=== PATIENT | male | born 1970 | race American Indian/Alaskan Native ===

== ENCOUNTER 2019-05-20 23:43 | Inpatient (IN) | payer OTHER, SELFPAY ==
[2019-05-21] MEDS ORDERED: cefTRIAXone/NS 2 GM/100 ML 2 GM/100 ML BAG IV ONE (00:56)
[2019-05-21] MEDS ORDERED: HYDROXYCHLOROQUINE 200 MG TAB PO ONE (00:56)
--- NOTE | 2019-05-21 01:00 | XRay Report ---
CHEST 1 VIEW INDICATION / CLINICAL INFORMATION: ESTEBAN. COMPARISON: None available. FINDINGS: SUPPORT DEVICES: None. HEART / MEDIASTINUM: No significant abnormality. LUNGS / PLEURA: Patchy round breast parenchyma opacities are demonstrated in both lower lobes No pneu mothorax. ADDITIONAL FINDINGS: Degenerative changes are seen in both shoulders. IMPRESSION: 1. Bilateral airspace opacities. Signer Name: Miko Israel MD Signed: 05/21/2019 12:56 AM Workstation Name: [id number]
--- NOTE | 2019-05-21 01:00 | Emergency Department Report ---
ED Shortness of Breath HPI - General Chief Complaint: Dyspnea/Respdistress Stated Complaint: CERON EXPOSURE/ESTEBAN/BODY ACHES Time Seen by Provider: 05/21/19 00:51 Source: patient, family Mode of arrival: Ambulatory Limitations: No Limitations - History of Present Illness Initial Comments: Patient is a 48-year-old male that presents emergency room with complaints of cough, shortness of breath, fever. Patient that the symptoms started 3 days ago. Patient states he has a sick contact with the novel coronavirus. Patient states his is tested positive. Patient states his is actually improving. Patient states that shortness of breath and cough are worse with exertion and better with rest. Patient denies chest pain. Patient complains of fatigue. Patient planes of vomiting and nausea. Patient complains of diarrhea. Patient states he has been on quarantine at home. MD Complaint: shortness of breath, cough -: Sudden Severity: severe Consistency: constant Improves With: rest Worsens With: exertion Context: recent URI, other Associated Symptoms: cough Treatments Prior to Arrival: none - Related Data Home Oxygen Therapy: No Allergies Allergy/AdvReac Type Severity Reaction Status Date / Time No Known Allergies Allergy Unverified 05/21/19 00:14 ED Review of Systems ROS: Stated complaint: CERON EXPOSURE/ESTEBAN/BODY ACHES Other details as noted in HPI Constitutional: chills, fever, malaise Eyes: denies: eye pain, eye discharge, vision change ENT: denies: ear pain, throat pain Respiratory: cough, shortness of breath, SOB with exertion, SOB at rest. denies: wheezing Cardiovascular: denies: chest pain, palpitations Endocrine: no symptoms reported Gastrointestinal: denies: abdominal pain, nausea, diarrhea Genitourinary: denies: urgency, dysuria Musculoskeletal: denies: back pain, joint swelling, arthralgia Skin: denies: rash, lesions Neurological: denies: headache, weakness, paresthesias Psychiatric: denies: anxiety, depression Hematological/Lymphatic: denies: easy bleeding, easy bruising ED Past Medical Hx - Past Medical History Previous Medical History?: No - Surgical History Past Surgical History?: No - Family History Family history: no significant - Social History Smoking Status: Never Smoker Substance Use Type: None ED Physical Exam - General Limitations: No Limitations General appearance: alert, in distress - Head Head exam: Present: atraumatic, normocephalic - Eye Eye exam: Present: normal appearance - ENT ENT exam: Present: mucous membranes dry - Neck Neck exam: Present: normal inspection - Respiratory Respiratory exam: Present: respiratory distress, decreased breath sounds. Absent: wheezes, rales - Cardiovascular Cardiovascular Exam: Present: regular rate, normal rhythm. Absent: systolic murmur, diastolic murmur, rubs, gallop - GI/Abdominal GI/Abdominal exam: Present: soft, normal bowel sounds. Absent: distended, tenderness, guarding - Rectal Rectal exam: Present: deferred - Extremities Exam Extremities exam: Present: normal inspection - Back Exam Back exam: Present: normal inspection - Neurological Exam Neurological exam: Present: alert, oriented X3 - Psychiatric Psychiatric exam: Present: normal affect, normal mood - Skin Skin exam: Present: warm, dry, intact, normal color. Absent: rash ED Course Vital Signs 05/21/19 05/21/19 05/21/19 00:04 00:26 00:30 Temperature 102.7 F H Pulse Rate 103 H 94 H 94 H Respiratory 20 12 29 H Rate Blood Pressure 110/64 113/68 O2 Sat by Pulse 86 88 Oximetry 05/21/19 05/21/19 05/21/19 00:37 00:46 01:00 Temperature 97.9 F Pulse Rate 92 H 87 Respiratory 30 H 32 H Rate Blood Pressure 110/68 114/66 O2 Sat by Pulse 95 Oximetry 05/21/19 05/21/19 05/21/19 01:16 01:30 01:46 Temperature Pulse Rate 93 H 90 92 H Respiratory 31 H 35 H 13 Rate Blood Pressure 114/66 114/66 114/66 O2 Sat by Pulse 97 96 97 Oximetry 05/21/19 05/21/19 05/21/19 02:00 02:16 02:30 Temperature Pulse Rate 83 82 81 Respiratory 25 H 31 H 28 H Rate Blood Pressure 114/66 114/61 114/61 O2 Sat by Pulse 98 97 98 Oximetry 05/21/19 05/21/19 05/21/19 02:54 03:00 03:16 Temperature 101.9 F H Pulse Rate 87 87 80 Respiratory 14 24 26 H Rate Blood Pressure 114/61 114/61 111/53 O2 Sat by Pulse 98 99 98 Oximetry 05/21/19 05/21/19 03:30 04:32 Temperature 99.8 F H Pulse Rate 84 Respiratory 29 H Rate Blood Pressure 114/61 O2 Sat by Pulse Oximetry - Reevaluation(s) Reevaluation #1: Initial evaluation done. Patient placed on droplet precautions and isolation. I use personal protective equipment in accordance with [facility] and hospital policy. 05/21/19 00:54 Reevaluation #2: I discussed all results with patient. I discussed plan of care with patient. Patient agrees with plan of care and admission. Patient to be admitted to the hospitalist service. 05/21/19 03:29 - Consultations Consultation #1: Dr. Carroll, infectious disease consulted and Dr. Carroll recommends Plaquenil 400 mg and Rocephin 2 g 05/21/19 01:00 Consultation #2: Hospitalist consulted for admission. Hospitalist to admit patient. Bridge orders placed. 05/21/19 03:29 ED Medical Decision Making - Lab Data Result diagrams: 05/21/19 00:23 05/21/19 00:23 - Radiology Data Radiology results: report reviewed, image reviewed interpreted by me: CHEST 1 VIEW INDICATION / CLINICAL INFORMATION: ESTEBAN. COMPARISON: None available. FINDINGS: SUPPORT DEVICES: None. HEART / MEDIASTINUM: No significant abnormality. LUNGS / PLEURA: Patchy round breast parenchyma opacities are demonstrated in both lower lobes No pneumothorax. ADDITIONAL FINDINGS: Degenerative changes are seen in both shoulders. IMPRESSION: 1. Bilateral airspace opacities. CT angio chest INDICATION / CLINICAL INFORMATION: P.E PROTOCOL!!!, Chest Pain with S.O.B. Spouse has CONFIRMED Covid 19. Omnipaque 350 / 100ml's was used for this exam.. TECHNIQUE: Precontrast bolus timing images were obtained followed by postcontrast axial and reformatted images. 3-plane MIP reconstructions were performed at an independent workstation by the technologist. All CT scans at this location are performed using CT dose reduction for ALARA by means of automated exposure control. COMPARISON: None available. FINDINGS: Enhancement of the pulmonary arteries is normal bilaterally. No evidence of pulmonary embolus. No mediastinal adenopathy. Heart size is normal and there is no pericardial effusion. Bilateral groundglass appearing opacities are identified with the primarily peripheral distribution. No pleural effusion. Limited upper abdominal images and skeletal structures are normal. IMPRESSION: 1. No evidence of pulmonary embolus. 2. Multifocal groundglass opacities likely representing acute infection. - Medical Decision Making Patient is a 48-year-old male that presents emergency room with complaints of shortness of breath, cough and fever. Patient has a sick contact with the coronavirus. Patient's tested positive. Patient's found to be hypoxic upon initial evaluation. Patient placed on oxygen his oxygen improved. ID was consulted early in the ER stay. Dr. Carroll recommends Plaquenil and Rocephin. COVID order set was ordered along with other labs. Patient's labs essentially unremarkable except for elevated d-dimer. due to the level of d-dimer a CTA of the chest was done to rule out a PE. Patient also found to have an elevated ferritin, CRP, LDH. Patient chest x-ray and PE shows bilateral pneumonia. Patient is suspected coronavirus. Patient admitted to the hospitalist service. - Differential Diagnosis Suspected coronavirus, SOB, hypoxia, PNA, cough fever Critical Care Time: Yes Critical care time in (mins) excluding proc time.: 45 Critical care attestation.: If time is entered above; I have spent that time in minutes in the direct care of this critically ill patient, excluding procedure time. Critical Care Time: 45 minutes ED Disposition Clinical Impression: SOB (shortness of breath), Suspected COVID-19 virus infection, Cough, Hypoxia, Elevated d-dimer, Elevated C-reactive protein (CRP), Hyponatremia Fever Qualifiers: Fever type: unspecified Qualified Code(s): R50.9 - Fever, unspecified Pneumonia Qualifiers: Pneumonia type: due to unspecified organism Laterality: bilateral Lung location: unspecified part of lung Qualified Code(s): J18.9 - Pneumonia, unspecified organism Disposition: OP ADMIT IP TO THIS HOSP Is pt being admited?: Yes Does the pt Need Aspirin: No Condition: Critical Time of Disposition: 03:26
[2019-05-21 01:13] LABS: Basophils # (Auto) 0.1 K/mm3 (0.0-0.1); Basophils % (Auto) 1.1 % (0.0-1.8); Eosinophils % (Auto) 0.2 % (0.0-4.3); Hematocrit 39.7 % (35.5-45.6); Hemoglobin 13.6 gm/dl (11.8-15.2); Lymphocytes # (Auto) 0.6 K/mm3 (1.2-5.4); Lymphocytes % (Auto) 10.5 % (13.4-35.0); Mean Corpuscular HGB Conc 34 % (32-34); Mean Corpuscular Volume 98 fl (84-94); Monocytes # (Auto) 0.4 K/mm3 (0.0-0.8); Monocytes % (Auto) 7.8 % (0.0-7.3); Platelet Count 143 K/mm3 (140-440); Red Blood Count 4.05 M/mm3 (3.65-5.03); Red Cell Distribution Width 13.8 % (13.2-15.2)
[2019-05-21] MEDS ORDERED: SODIUM CHLORIDE 0.9% 1000 ML 1,000 ML IV ONE (01:17)
[2019-05-21 01:27] LABS: Alanine Aminotransferase 62 units/L (7-56); BUN/Creatinine Ratio 15; Blood Urea Nitrogen 16 mg/dL (9-20); Hemolysis Index 17
[2019-05-21] MEDS ORDERED: ACETAMINOPHEN 325 MG TAB PO ONE (03:13)
--- NOTE | 2019-05-21 03:18 | Cat Scan Report ---
CT angio chest INDICATION / CLINICAL INFORMATION: P.E PROTOCOL!!!, Chest Pain with S.O.B. Spouse has CONFIRMED Covid 19. Omnipaque 350 / 100ml's was us ed for this exam.. TECHNIQUE: Precontrast bolus timing images were obtained followed by postcontrast axial and reformatted images. 3-plane MIP reconstructions were performed at an independent workstation by the technologist. All CT scans at this location are performed using CT dose reduction for ALARA by means of automated exposure control. COMPARISON: None available. FINDINGS: Enhancement of the pulmonary arteries is normal bilaterally. No evidence of pulmonary embolus. No mediastinal adenopathy. Heart size is normal and there is no pericardial effusion. Bilateral groundglass appearing opacities are identified with the primarily peripheral distribution. No pleural effusion. Limited upper abdominal images and skeletal structures are normal. IMPRESSION: 1. No evidence of pulmonary embolus. 2. Multifocal groundglass opacities likely representing acute infection. Signer Name: Miko Israel MD Signed: 05/21/2019 3:14 AM Workstation Name: [email or web address]
--- NOTE | 2019-05-21 04:04 | History and Physical Report ---
History of Present Illness History of present illness: 48-year-old male with no medical problems comes emergency room for evaluation. He has been complain of none productive cough, shortness of breath, fever for 3 days. Also complaining of diarrhea which is improving, fatigue states that his tested positive. In the emergency room, infectious disease was consulted, he was given Rocephin and Plaquenil patient will be admitted for covid evaluation Review Of Systems: Constitutional: no weight loss, chills Ears, eyes, nose, mouth and throat: no nasal congestion, no nasal discharge, no sinus pressure, blurry vision, diplopia Neck: No neck pain or rigidity. Cardiovascular: No palpitations, chest pain Respiratory: + shortness of breath, cough Gastrointestinal: No hematochezia Genitourinary : no dysuria, frequency Musculoskeletal: no muscle ache , joint pain Integumentary: no rash, no pruritis Neurological: no parathesias, focal weakness Endocrine: no cold or heat intolerance, no polyuria or polydipsia Hematologic/Lymphatic: no easy bruising, no easy bleeding, no gland swelling Allergic/Immunologic: no urticaria, no angioedema. PAST MEDICAL HISTORY: None PAST SURGICAL HISTORY: None SOCIAL HISTORY: Denies alcohol, tobacco, drugs FAMILY HISTORY: Hypertension PUI?: Yes COVID19: Pending Medications and Allergies Allergies Allergy/AdvReac Type Severity Reaction Status Date / Time No Known Allergies Allergy Unverified 05/21/19 00:14 Home Medications Medication Instructions Recorded Confirmed Last Taken Type Albuterol Sulfate [Proair 90 mcg IH Q6H PRN #1 aer.pw.bas 06/02/19 Unknown Rx Digihaler] Active Meds: Active Medications Sodium Chloride (Nacl 0.9% 1000 Ml) 1,000 mls @ 250 mls/hr IV ONCE ONE Stop: 05/21/19 05:16 Last Admin: 05/21/19 01:23 Dose: 250 mls/hr Documented by: Exam - Physical Exam Narrative exam: Gen. appearance: Patient lying in bed, no apparent distress, looks ill HEENT: Normocephalic, atraumatic, pupils equally round and reactive to light, ex traocular movement intact, and no sclericterus,. No JVD or thyromegaly or nodule,neck supple, no carotid bruit ,mucous membranes moist, no exudate or erythema Heart: S1, S2, regular rate and rhythm Lungs: Crackles bilaterally, breathing comfortable Abdomen: Positive bowel sounds, nontender, nondistended, no organomegaly Extremity: no edema, cyanosis, clubbing Skin: No rash, nodules, warm, dry Neuro: Cranial nerves II to XII intact, speech is fluent, moves extremities, sensory intact - Constitutional Vitals: Temp Pulse Resp BP Pulse Ox 101.9 F H 84 29 H 114/61 98 05/21/19 02:54 05/21/19 03:30 05/21/19 03:30 05/21/19 03:30 05/21/19 03:16 Results - Labs CBC & Chem 7: 05/29/19 04:04 05/29/19 04:04 Labs: Abnormal lab results 05/21/19 05/21/19 05/21/19 Range/Units 00:23 00:23 00:23 MCV 98 H (84-94) fl MCH 34 H (28-32) pg Lymph % (Auto) 10.5 L (13.4-35.0) % Graham % (Auto) 7.8 H (0.0-7.3) % Lymph # 0.6 L (1.2-5.4) K/mm3 Seg Neutrophils % 80.4 H (40.0-70.0) % D-Dimer 1113.40 H (0-234) ng/mlDDU Sodium 129 L (137-145) mmol/L Chloride 94.0 L (98-107) mmol/L Glucose 123 H (75-100) mg/dL Calcium 8.0 L (8.4-10.2) mg/dL Ferritin (13.0-400.0) ng/mL AST 157 H (5-40) units/L ALT 62 H (7-56) units/L 05/21/19 Range/Units 00:23 MCV (84-94) fl MCH (28-32) pg Lymph % (Auto) (13.4-35.0) % Graham % (Auto) (0.0-7.3) % Lymph # (1.2-5.4) K/mm3 Seg Neutrophils % (40.0-70.0) % D-Dimer (0-234) ng/mlDDU Sodium (137-145) mmol/L Chloride (98-107) mmol/L Glucose (75-100) mg/dL Calcium (8.4-10.2) mg/dL Ferritin 2304.0 H (13.0-400.0) ng/mL AST (5-40) units/L ALT (7-56) units/L - Imaging and Cardiology EKG: image reviewed Chest x-ray: report reviewed CT scan - chest: report reviewed Assessment and Plan Assessment Bilateral pneumonia, suspect Covid Continue Rocephin, azithromycin Infectious disease was consulted Covid testing pending Hyponatremia start fluid monitor DVT prophylaxis
[2019-05-21 04:11] LABS: C-Reactive Protein 6.1 mg/dL (0.00-1.30)
[2019-05-21] MEDS ORDERED: ONDANSETRON 4 MG/2 ML INJ IV PRN (04:54)
--- NOTE | 2019-05-21 08:11 | Consultation ---
History of Present Illness - Reason for Consult Consult date: 05/21/19 r/o COVID Requesting physician: JOHN PAUL MARQUEZ PUI?: Yes COVID19: Pending - History of Present Illness 48 years old male with no medical history, admitted on 05/20/2019 due to 3-day history of dry cough, subjective fever, and shortness of breath associated with dyspnea on exertion. Patient is also complaining of diarrhea and generalized weakness. Patient's tested positive for COVID last week. On arrival, temperature 202.7, normal WBC with lymphopenia, ferritin 2304, d-dimer 1113, LDH 703, CRP 6.1. AST 157, ALT 62. CTA showed multifocal groundglass opacities bilaterally. Patient O2 sat was 92% on room air. Review of Systems: positive in bold print General: + fever, +chills, +malaise Cutaneous: rash, pruritus Head: headaches or injury Eyes: changes in vision, eye pain, double vision Ears: ear pain, ear discharge, ringing or hearing loss Nose: nose bleeding, stuffiness Mouth & throat: bleeding gums, horseness, no dental problems, or swollen glands Neck: no pain, node enlargement/lumps, tyroid enlargement or tenderness Respiratory: +SOB, +cough, +RBADEN, wheezing, sputum, hemoptysis, pleuritic chest pain Cardiovascular: chest pain, leg edema, cyanosis, BRADEN, orthopnea Musculoskeletal: edema Gastrointestinal: nausea, vomiting, hematemesis, diarrhea, constipation, melena, bright red blood in stools, fecal incontinence, jaundice Genitourinary/Reproductive: frequent urination, dysuria, hematuria, incontinence Neurogical: seizures, headaches, weakness, paresthesias, loss of speech or vision; memory loss, vertigo, tremors, numbness Psychiatric: stable mood; excessive anxiety, sadness or moodiness Exam performed in conjuction with nursings staff due to lack of PPE General appearance: Alert in NAD Eyes: limited due to lack of PPE HENT: Atraumatic; oropharynx limited due to lack of PPE Lungs: aneudy crackles CV: RRR Abdomen: limited due to lack of PPE Extremities: limited due to lack of PPE Skin: No rash. Psych: Appropriate affect, alert and oriented to person, place and time. Neuro: alert and oriented x 3. Moving all extermities Cultures: None Assessment: 48 years old male with no medical history, admitted on 05/20/2019 due to 3-day history of dry cough, subjective fever, and shortness of breath associated with dyspnea on exertion. Patient is also complaining of diarrhea and generalized weakness. Patient's tested positive for COVID last week. On arrival, temperature 202.7, normal WBC with lymphopenia, ferritin 2304, d- dimer 1113, LDH 703, CRP 6.1. AST 157, ALT 62. CTA showed multifocal groundglass opacities bilaterally. Patient O2 sat was 92% on room air. #High fever: likely due to bilateral pneumonia #Bilateral pneumonia: high suspicion for severe COVID pneumonia. CTA showed multifocal bilateral groundglass opacities. Transmission likely from home as is COVID positive. COVID test pending. Risk for ARDS is moderate given elevated inflammatory markers. Inflammatory markers are elevated, ferritin 2304, LDH 703, d-dimer 1113. #Acute hypoxemia: O2 sats on room air was 92%. On NC O2 #Elevated LFTs: Likely from COVID #Diarrhea: Likely due to COVID, which is a pneumo-enteropathic virus. Recommendations: Follow-up COVID testing Obtain exercise oximetry -2 minutes walking inside the room Check serial Ferritin, LDH, D-Dimer, CRP every 48 hour Start hydroxychloroquine 400 mg PO BID for 1 day then 200 mg PO BID for 4 days (total 5 days) -due to initial hypoxemia and elevated markers Start ceftriaxone 2 gm IV q day Stop azithromycin Daily QT monitoring - stop plaquenil if QT interval >500 Discharge home in 1-2 days if inflammatory markers are down trending and O2 sats not dropping with activity (exercise oxymetry required before discharge) Will follow Heide Montalvo MD Infectious Diseases Photographer [employer] [facility] M [phone] O [phone] Medications and Allergies Allergies Allergy/AdvReac Type Severity Reaction Status Date / Time No Known Allergies Allergy Unverified 05/21/19 00:14 Active Meds: Active Medications Acetaminophen (Tylenol) 650 mg PO Q4H PRN PRN Reason: Pain MILD(1-3)/Fever >100.5/WALLS Azithromycin (Zithromax) 500 mg PO QDAY EMILEE Enoxaparin Sodium (Enoxaparin) 40 mg SUB-Q QAM EMILEE Ceftriaxone Sodium (Rocephin/Ns 1 Gm/50 Ml) 1 gm in 50 mls @ 100 mls/hr IV Q24HR EMILEE; Protocol Sodium Chloride (Nacl 0.9% 1000 Ml) 1,000 mls @ 125 mls/hr IV DIRECT EMILEE Ondansetron HCl (Zofran) 4 mg IV Q8H PRN PRN Reason: Nausea And Vomiting Sodium Chloride (Sodium Chloride Flush Syringe 10 Ml) 10 ml IV BID EMILEE Sodium Chloride (Sodium Chloride Flush Syringe 10 Ml) 10 ml IV PRN PRN PRN Reason: LINE FLUSH Physical Examination - Constitutional Vitals: Vital Signs Temp Pulse Resp BP Pulse Ox 97.5 F L 71 20 110/79 92 05/21/19 06:10 05/21/19 06:10 05/21/19 06:10 05/21/19 06:10 05/21/19 06:10 Temperature -Last 24 Hours Temperature 97.5 F Temperature 99.8 F Temperature 101.9 F Temperature 97.9 F Temperature 102.7 F Results - Labs CBC & Chem 7: 05/21/19 00:23 05/21/19 00:23 Labs: Abnormal lab results 05/21/19 05/21/19 05/21/19 Range/Units 00:23 00:23 00:23 MCV 98 H (84-94) fl MCH 34 H (28-32) pg Lymph % (Auto) 10.5 L (13.4-35.0) % [place]eker % (Auto) 7.8 H (0.0-7.3) % Lymph # 0.6 L (1.2-5.4) K/mm3 Seg Neutrophils % 80.4 H (40.0-70.0) % D-Dimer 1113.40 H (0-234) ng/mlDDU Sodium 129 L (137-145) mmol/L Chloride 94.0 L (98-107) mmol/L Glucose 123 H (75-100) mg/dL Calcium 8.0 L (8.4-10.2) mg/dL Ferritin (13.0-400.0) ng/mL AST 157 H (5-40) units/L ALT 62 H (7-56) units/L Lactate Dehydrogenase (91-180) units/L C-Reactive Protein (0.00-1.30) mg/dL 05/21/19 05/21/19 Range/Units 00:23 03:24 MCV (84-94) fl MCH (28-32) pg Lymph % (Auto) (13.4-35.0) % [place] % (Auto) (0.0-7.3) % Lymph # (1.2-5.4) K/mm3 Seg Neutrophils % (40.0-70.0) % D-Dimer (0-234) ng/mlDDU Sodium (137-145) mmol/L Chloride (98-107) mmol/L Glucose (75-100) mg/dL Calcium (8.4-10.2) mg/dL Ferritin 2304.0 H (13.0-400.0) ng/mL AST (5-40) units/L ALT (7-56) units/L Lactate Dehydrogenase 703 H (91-180) units/L C-Reactive Protein 6.10 H (0.00-1.30) mg/dL
--- NOTE | 2019-05-21 08:24 | Progress Note ---
Assessment and Plan Assessment and plan: Patient is a 48 yo man without chronic medical problems who presents with SOB, cough, fever for 3 days prior to arrival to ED on 05/21/2019 and contact with who is positive for COVID 19. He was found to be hypoxic, 86% on room air. * pCXR Impression: 1. Bilateral airspace opacities. * CTA chest Impression: 1. No evidence of pulmonary embolus. 2. Multifocal groundglass opacities likely representing acute infection. Acute hypoxic respiratory failure: treat with supplemental O2, consult Pulm Sepsis pneumonia: treat with abx, consulted ID Bilateral pneumonia most likely COVID-19 related: start plaquenil, prone positin, inflammatory marker q48 PUI COVID-19: await testing Hyponatremia related to above, poor prognostic sign: monitor closely, caution with IVFs due to COVID-19 Elevated mild transAminases: monitor periodically, most likely related to above DVT ppx: sq lovenox full code History Interval history: Patient was seen and examined. Follow-up on current diagnosis bilateral PNA. Overnight uneventful as no events directly reported to me. Patient denies any chest pain, shortness breath, nausea/vomiting or severe headaches. Imaging, nursing note, chart, labs and old chart reviewed. Discussed with patient. PUI?: Yes COVID19: Pending Hospitalist Physical - Physical exam Narrative exam: Gen: WDWN, NAD, Awake, Alert, Orientated HEENT: NCAT, EOMI, PERRL, OP Clear Neck: supple, no adenopathy, no thyromegaly, no JVD CVS/Heart: RRR, normal S1S2, pulses present bilaterally Chest/Lungs: diminished bs bilaterally Symmetrical chest expansion, good air entry bilaterally GI/Abdomen: soft, NTND, good bowel sounds, no guarding or rebound /Bladder: no suprapubic tenderness, no CVA or paraspinal tenderness Extermity/Skin: no c/c/e, no obvious rash MSK: FROM x 4 Neuro: CN 2-12 grossly intact, no new focal deficits Psych: calm - Constitutional Vitals: Temp Pulse Resp BP Pulse Ox 97.5 F L 71 20 110/79 92 05/21/19 06:10 05/21/19 06:10 05/21/19 06:10 05/21/19 06:10 05/21/19 06:10 Results - Labs CBC & Chem 7: 05/21/19 00:23 04 00:23 Labs: Laboratory Last Values WBC 5.4 K/mm3 (4.5-11.0) 05/21/19 00:23 RBC 4.05 M/mm3 (3.65-5.03) 05/21/19 00:23 Hgb 13.6 gm/dl (11.8-15.2) 05/21/19 00:23 Hct 39.7 % (35.5-45.6) 05/21/19 00:23 MCV 98 fl (84-94) H 05/21/19 00:23 MCH 34 pg (28-32) H 05/21/19 00:23 MCHC 34 % (32-34) 05/21/19 00:23 RDW 13.8 % (13.2-15.2) 05/21/19 00:23 Plt Count 143 K/mm3 (140-440) 05/21/19 00:23 Lymph % (Auto) 10.5 % (13.4-35.0) L 05/21/19 00:23 [place] % (Auto) 7.8 % (0.0-7.3) H 05/21/19 00:23 Eos % (Auto) 0.2 % (0.0-4.3) 05/21/19 00:23 Baso % (Auto) 1.1 % (0.0-1.8) 05/21/19 00:23 Lymph # 0.6 K/mm3 (1.2-5.4) L 05/21/19 00:23 [place] # 0.4 K/mm3 (0.0-0.8) 05/21/19 00:23 Eos # 0.0 K/mm3 (0.0-0.4) 05/21/19 00:23 Baso # 0.1 K/mm3 (0.0-0.1) 05/21/19 00:23 Seg Neutrophils % 80.4 % (40.0-70.0) H 05/21/19 00:23 Seg Neutrophils # 4.3 K/mm3 (1.8-7.7) 05/21/19 00:23 D-Dimer 1113.40 ng/mlDDU (0-234) H 05/21/19 00:23 Sodium 129 mmol/L (137-145) L 05/21/19 00:23 Potassium 4.2 mmol/L (3.6-5.0) 05/21/19 00:23 Chloride 94.0 mmol/L (98-107) L 05/21/19 00:23 Carbon Dioxide 22 mmol/L (22-30) 05/21/19 00:23 Anion Gap 17 mmol/L 05/21/19 00:23 BUN 16 mg/dL (9-20) 05/21/19 00:23 Creatinine 1.1 mg/dL (0.8-1.5) 05/21/19 00:23 Estimated GFR > 60 ml/min 05/21/19 00:23 BUN/Creatinine Ratio 15 % 05/21/19 00:23 Glucose 123 mg/dL (75-100) H 05/21/19 00:23 Lactic Acid 1.70 mmol/L (0.7-2.0) 05/21/19 00:23 Calcium 8.0 mg/dL (8.4-10.2) L 05/21/19 00:23 Ferritin 2304.0 ng/mL (13.0-400.0) H 05/21/19 00:23 Total Bilirubin 0.70 mg/dL (0.1-1.2) 05/21/19 00:23 AST 157 units/L (5-40) H 05/21/19 00:23 ALT 62 units/L (7-56) H 05/21/19 00:23 Alkaline Phosphatase 45 units/L (35-129) 05/21/19 00:23 Lactate Dehydrogenase 703 units/L (91-180) H 05/21/19 03:24 C-Reactive Protein 6.10 mg/dL (0.00-1.30) H 05/21/19 03:24 Total Protein 7.9 g/dL (6.3-8.2) 05/21/19 00:23 Albumin 4.0 g/dL (3.9-5) 05/21/19 00:23 Albumin/Globulin Ratio 1.0 % 05/21/19 00:23 Ceballos/IV: IV Catheter Type [Left INT / Saline Lock Antecubital] Active Medications - Current Medications Current Medications: Generic Name Dose Route Start Last Admin Trade Name Freq PRN Reason Stop Dose Admin Acetaminophen 650 mg 05/21/19 04:54 Tylenol PO Q4H PRN Pain MILD(1-3)/Fever >100.5/WALLS Enoxaparin Sodium 40 mg 05/21/19 10:00 Enoxaparin SUB-Q QAM [facility] Hydroxychloroquine Sulfate 400 mg 05/21/19 08:15 Plaquenil PO 05/21/19 08:16 BID ONE Hydroxychloroquine Sulfate 200 mg 05/22/19 10:00 Plaquenil PO 05/26/19 09:59 BID [facility] Ceftriaxone Sodium 1 gm in 50 mls @ 100 mls/hr 05/21/19 10:00 Rocephin/Ns 1 Gm/50 Ml IV Q24HR [facility] Protocol Sodium Chloride 1,000 mls @ 125 mls/hr 05/21/19 05:00 Nacl 0.9% 1000 Ml IV DIRECT [facility] Ondansetron HCl 4 mg 05/21/19 04:54 Zofran IV Q8H PRN Nausea And Vomiting Sodium Chloride 10 ml 05/21/19 10:00 Sodium Chloride Flush Syringe 10 Ml IV BID EMILEE Sodium Chloride 10 ml 05/21/19 04:54 Sodium Chloride Flush Syringe 10 Ml IV PRN PRN LINE FLUSH
[2019-05-21] MEDS ORDERED: cefTRIAXone/NS 1 GM/50 ML IVPB IV ONE (09:00)
[2019-05-21] MEDS: HYDROXYCHLOROQUINE 200 MG TAB PO SCH ×2 (09:10→21:35)
[2019-05-21] MEDS: cefTRIAXone/NS 2 GM/100 ML 2 GM/100 ML BAG IV SCH ×2 (09:11→10:59)
[2019-05-21] MEDS: ENOXAPARIN 40 MG/0.4 ML INJ SUB-Q SCH (09:11)
[2019-05-21] MEDS: ACETAMINOPHEN 325 MG TAB PO PRN ×2 (09:11→18:23)
[2019-05-21] MEDS: SODIUM CHLORIDE 0.9% 1000 ML 1,000 ML IV SCH (09:14)
[2019-05-21] MEDS ORDERED: cefTRIAXone/NS 1 GM/50 ML 1 GM/50 ML BAG IV SCH (10:00)
[2019-05-21] MEDS ORDERED: AZITHROMYCIN 250 MG TAB PO SCH (10:00)
--- NOTE | 2019-05-21 12:04 | Consultation ---
History of Present Illness Consult date: 05/21/19 Requesting physician: GINA KERN Reason for consult: hypoxemia, pneumonia, abnormal CXR/CT, other (Concern for COVID 19) History of present illness: 48 y/o male with COVID symptoms, concern for COVID. Hypoxic on room air but has been stable on 2-[address] chest shows diffuse bilateral patchy GGO's that have been seen with COVID positive patients at this facility and across the country. Remainder of the review is negative. Patient's tested positive last week. Medications and Allergies Allergies Allergy/AdvReac Type Severity Reaction Status Date / Time No Known Allergies Allergy Unverified 05/21/19 00:14 Home Medications Medication Instructions Recorded Confirmed Last Taken Type No Known Home Medications [No 05/21/19 05/21/19 Unknown History Reported Home Medications] Active Meds: Active Medications Acetaminophen (Tylenol) 650 mg PO Q4H PRN PRN Reason: Pain MILD(1-3)/Fever >100.5/WALLS Last Admin: 05/21/19 09:11 Dose: 650 mg Documented by: Enoxaparin Sodium (Enoxaparin) 40 mg SUB-Q QAM [facility] Last Admin: 05/21/19 09:11 Dose: 40 mg Documented by: Hydroxychloroquine Sulfate (Plaquenil) 400 mg PO BID [facility] Stop: 05/21/19 22:01 Last Admin: 05/21/19 09:10 Dose: 400 mg Documented by: Hydroxychloroquine Sulfate (Plaquenil) 200 mg PO BID [facility] Stop: 05/25/19 22:01 Sodium Chloride (Nacl 0.9% 1000 Ml) 1,000 mls @ 125 mls/hr IV DIRECT [facility] Last Admin: 05/21/19 09:14 Dose: 125 mls/hr Documented by: Ceftriaxone Sodium (Rocephin/Ns 2 Gm/100 Ml) 2 gm in 100 mls @ 200 mls/hr IV Q24HR [facility] Last Admin: 05/21/19 10:59 Dose: Not Given Documented by: Ondansetron HCl (Zofran) 4 mg IV Q8H PRN PRN Reason: Nausea And Vomiting Sodium Chloride (Sodium Chloride Flush Syringe 10 Ml) 10 ml IV BID [facility] Last Admin: 05/21/19 09:11 Dose: 10 ml Documented by: Sodium Chloride (Sodium Chloride Flush Syringe 10 Ml) 10 ml IV PRN PRN PRN Reason: LINE FLUSH Zinc Sulfate (Zinc Sulfate) 220 mg PO DAILY@1200 EMILEE Stop: 05/25/19 12:01 Review of Systems Constitutional: weakness, malaise, other (dyspnea) Physical Examination Vital signs: Vital Signs Temp Pulse Resp BP Pulse Ox 102.7 F H 103 H 20 110/64 86 05/21/19 00:04 05/21/19 00:04 05/21/19 00:04 05/21/19 00:04 05/21/19 00:04 Results - Laboratory Findings CBC and BMP: 05/22/19 04:57 05/22/19 04:57 PT/INR, D-dimer D-Dimer 1113.40 ng/mlDDU (0-234) H 05/21/19 00:23 Abnormal lab findings: Abnormal Labs 05/21/19 05/21/19 05/21/19 00:23 00:23 00:23 MCV 98 H MCH 34 H Lymph % (Auto) 10.5 L [place] % (Auto) 7.8 H Lymph # 0.6 L Seg Neutrophils % 80.4 H D-Dimer 1113.40 H Sodium 129 L Chloride 94.0 L Glucose 123 H Calcium 8.0 L Ferritin AST 157 H ALT 62 H Lactate Dehydrogenase C-Reactive Protein 05/21/19 05/21/19 00:23 03:24 MCV MCH Lymph % (Auto) [place] % (Auto) Lymph # Seg Neutrophils % D-Dimer Sodium Chloride Glucose Calcium Ferritin 2304.0 H AST ALT Lactate Dehydrogenase 703 H C-Reactive Protein 6.10 H Assessment and Plan 48 y/o male with close contact of COVID 19 patient admitted with hypoxemia and abnormal CXR/CT 1. CT scan shows bilateral patch ground glass on the periphery. This pattern has been seen in COVID 19 patients before. Continue supplemental O2. ID has been consulted. Markers have been checked and are elevated. Suggest daily CXR's in the patient to monitor possible progression to bilateral alveolar filling process so will repeat CXR in the am. Started Hydroxychloroquine and Zinc. Guarded prognosis, will continue to follow.
[2019-05-21] MEDS: ZINC SULFATE 220 MG CAP PO SCH (14:11)
[2019-05-22] MEDS: SODIUM CHLORIDE 0.9% 1000 ML 1,000 ML IV SCH (01:21)
[2019-05-22 05:28] LABS: Basophils % (Auto) 0.5 % (0.0-1.8); Hematocrit 38.9 % (35.5-45.6); Hemoglobin 13.3 gm/dl (11.8-15.2); Lymphocytes # (Auto) 0.5 K/mm3 (1.2-5.4); Lymphocytes % (Auto) 10.4 % (13.4-35.0); Mean Corpuscular HGB Conc 34 % (32-34); Mean Corpuscular Volume 98 fl (84-94); Monocytes # (Auto) 0.2 K/mm3 (0.0-0.8); Monocytes % (Auto) 5.1 % (0.0-7.3); Platelet Count 164 K/mm3 (140-440); Red Blood Count 3.98 M/mm3 (3.65-5.03); Red Cell Distribution Width 13.5 % (13.2-15.2)
[2019-05-22 05:50] LABS: BUN/Creatinine Ratio 12; Blood Urea Nitrogen 12 mg/dL (9-20); Calcium 7.6 mg/dL (8.4-10.2); Hemolysis Index 16
--- NOTE | 2019-05-22 07:59 | Progress Note ---
Assessment and Plan 48 y/o male with close contact of COVID 19 patient admitted with hypoxemia and abnormal CXR/CT 1. Repeat CXR today 2. Follow markers and ID recs 3. Continue supplemental oxygen and wean as tolerated for sats >88% 4. Will stop IVF's as we need to keep these patients on the dry side. PO intake is preferred Subjective Date of service: 05/22/19 Principal diagnosis: pneumonia, viral Interval history: No acute events overnight. Remains stable on 3 liters. COVID test is positive. Please see scanned reports. PUI?: Yes COVID19: Positive (Please see scanned reports) Objective Vital Signs - 12hr 05/21/19 05/21/19 05/21/19 21:30 22:00 23:04 Temperature 99.7 F H 99.7 F H Pulse Rate 78 78 Respiratory 24 24 Rate Blood Pressure 99/61 Blood Pressure 99/61 [Right] O2 Sat by Pulse 90 95 95 Oximetry 05/22/19 03:54 Temperature Pulse Rate 92 H Respiratory 20 Rate Blood Pressure 112/65 Blood Pressure [Right] O2 Sat by Pulse 95 Oximetry CBC and BMP: 05/22/19 04:57 05/22/19 04:57 ABG, PT/INR, D-dimer: PT/INR, D-dimer D-Dimer 1113.40 ng/mlDDU (0-234) H 05/21/19 00:23 Abnormal lab findings: Abnormal Labs 05/21/19 05/21/19 05/21/19 00:23 00:23 00:23 MCV 98 H MCH 34 H Lymph % (Auto) 10.5 L [place] % (Auto) 7.8 H Lymph # 0.6 L Seg Neutrophils % 80.4 H D-Dimer 1113.40 H Sodium 129 L Chloride 94.0 L Glucose 123 H Calcium 8.0 L Ferritin AST 157 H ALT 62 H Lactate Dehydrogenase C-Reactive Protein 05/21/19 05/21/19 05/22/19 00:23 03:24 04:57 MCV 98 H MCH 33 H Lymph % (Auto) 10.4 L [place] % (Auto) Lymph # 0.5 L Seg Neutrophils % 84.0 H D-Dimer Sodium Chloride Glucose Calcium Ferritin 2304.0 H AST ALT Lactate Dehydrogenase 703 H C-Reactive Protein 6.10 H 05/22/19 04:57 MCV MCH Lymph % (Auto) [place] % (Auto) Lymph # Seg Neutrophils % D-Dimer Sodium 134 L Chloride Glucose 102 H Calcium 7.6 L Ferritin AST ALT Lactate Dehydrogenase C-Reactive Protein
[2019-05-22] MEDS: HYDROXYCHLOROQUINE 200 MG TAB PO SCH ×2 (09:06→21:45)
[2019-05-22] MEDS: ACETAMINOPHEN 325 MG TAB PO PRN ×2 (09:06→21:45)
[2019-05-22] MEDS: cefTRIAXone/NS 2 GM/100 ML 2 GM/100 ML BAG IV SCH (09:07)
[2019-05-22] MEDS: ENOXAPARIN 40 MG/0.4 ML INJ SUB-Q SCH (09:07)
--- NOTE | 2019-05-22 09:09 | XRay Report ---
CHEST 1 VIEW INDICATION / CLINICAL INFORMATION: Hypoxemia, COVID positive. COMPARISON: 05/21/2019 FINDINGS: SUPPORT DEVICES: None. HEART / MEDIASTINUM: No significant abnormality. LUNGS / PLEURA: There continues to be pulmonary opacities scattered throughout both lower lobes, slig htly worse than on most recent chest radiograph. Upper lung zones remain grossly clear at this time. No pneumothorax. ADDITIONAL FINDINGS: No significant additional findings. IMPRESSION: 1. Slight interval progression of bilateral basilar pulmonary opacities, most consistent with pneumon ia. Signer Name: Elissa King MD Signed: 05/22/2019 9:05 AM Workstation Name: [id number]
[2019-05-22] MEDS ORDERED: ALBUTEROL 2.5 MG/3 ML NEBU IH PRN (09:54)
[2019-05-22] MEDS: ZINC SULFATE 220 MG CAP PO SCH (14:25)
--- NOTE | 2019-05-22 16:19 | Progress Note ---
Assessment and Plan Cultures: None Assessment: 48 years old male with no medical history, admitted on 05/20/2019 due to 3-day history of dry cough, subjective fever, and shortness of breath associated with dyspnea on exertion. Patient's tested positive for COVID last week: #High fever: continues with high fever; likely due to bilateral pneumonia #Severe COVID pneumonia: CTA showed multifocal bilateral groundglass opacities. Transmission likely from home as is COVID positive. COVID test POSITIVE. Risk for ARDS is high given elevated inflammatory markers. Inflammatory markers are elevated, ferritin 2304, LDH 703, d-dimer 1113. #Acute hypoxemia: now on 3L sats 90% but severe dyspnea #Elevated LFTs: Likely from COVID #Diarrhea: Likely due to COVID, which is a pneumo-enteropathic virus. Recommendations: MAY NEED INTUBATION, CLOSE MONITORING Obtain blood cultures check IL-6 may be a candidate for tociluzimab/steroids consider prophylactic anticoagulation Check serial Ferritin, LDH, D-Dimer, CRP tomorrow Continue hydroxychloroquine (total 5 days) Continue ceftriaxone 2 gm IV q day Stop azithromycin Daily QT monitoring - stop plaquenil if QT interval >[address] Tang Will follow Heide Montalvo MD Infectious Diseases Therapy [employer] [facility], [place], [facility] ([facility] M [phone] O [phone] Subjective Date of service: 05/22/19 Principal diagnosis: pneumonia, viral Interval history: Feels weak, tired, SOB, fever 101, on 3L sat 90% PUI?: Yes COVID19: Positive (Please see scanned reports) Objective - Exam Narrative Exam: General appearance: Alert in mild rsp distress Eyes: limited due to lack of PPE HENT: Atraumatic; oropharynx limited due to lack of PPE Lungs: aneudy crackles CV: RRR Abdomen: limited due to lack of PPE Extremities: limited due to lack of PPE Skin: No rash. Psych: Appropriate affect, alert and oriented to person, place and time. Neuro: alert and oriented x 3. Moving all extermities - Constitutional Vitals: Vital Signs Temp Pulse Resp BP Pulse Ox 101.3 F H 94 H 20 99/58 90 05/22/19 11:40 05/22/19 11:40 05/22/19 11:40 05/22/19 11:40 05/22/19 11:40 Temperature -Last 24 Hours Temperature 101.3 F Temperature 99.7 F Temperature 99.7 F Temperature 93.4 F Temperature 99.3 F - Labs CBC & Chem 7: 05/22/19 04:57 05/22/19 04:57 Labs: Abnormal lab results 05/22/19 05/22/19 Range/Units 04:57 04:57 MCV 98 H (84-94) fl MCH 33 H (28-32) pg Lymph % (Auto) 10.4 L (13.4-35.0) % Lymph # 0.5 L (1.2-5.4) K/mm3 Seg Neutrophils % 84.0 H (40.0-70.0) % Sodium 134 L (137-145) mmol/L Glucose 102 H (75-100) mg/dL Calcium 7.6 L (8.4-10.2) mg/dL
--- NOTE | 2019-05-22 16:26 | Progress Note ---
Assessment and Plan Assessment and plan: Patient is a 48 yo man without chronic medical problems who presents with SOB, cough, fever for 3 days prior to arrival to ED on 05/21/2019 and contact with who is positive for COVID 19. He was found to be hypoxic, 86% on room air. * pCXR Impression: 1. Bilateral airspace opacities. * CTA chest Impression: 1. No evidence of pulmonary embolus. 2. Multifocal groundglass opacities likely representing acute infection. Acute hypoxic respiratory failure: treat with supplemental O2, consult Pulm Sepsis pneumonia: treat with abx, consulted ID Bilateral pneumonia most likely COVID-19 related: start plaquenil, prone position, inflammatory marker q48 PUI COVID-19: await testing Hyponatremia related to above, poor prognostic sign: monitor closely, caution with IVFs due to COVID-19 Elevated mild transAminases: monitor periodically, most likely related to above DVT ppx: sq lovenox full code 05/22/19: COVID-19 came back positive today, already on plaquenil and zinc, He is still very weak, on 3 liters of O2, still hypoxic, repeat CXR looks worse, ca lled Dr. Donaldson. Inflammatory markers tomorrow. Patient is not in prone position at ordered, I tried to get him into the prone position but he was sooo weak and lethargic. I spoke with his who is [employer] and she is COVID 19 positive, she was exposed by one of her patients. Mr. Padilla started being sick last Saturday. History Interval history: Patient was seen and examined. Follow-up on current diagnosis bilateral PNA. Overnight uneventful as no events directly reported to me. Patient denies any chest pain, shortness breath, nausea/vomiting or severe headaches. Imaging, nursing note, chart, labs and old chart reviewed. Discussed with patient. PUI?: Yes COVID19: Positive (Please see scanned reports) Hospitalist Physical - Physical exam Narrative exam: Gen: ill appearing, mild respiratory distress Awake, Alert, Orientated HEENT: NCAT, EOMI, PERRL, OP Clear Neck: supple, no adenopathy, no thyromegaly, no JVD CVS/Heart: RRR, normal S1S2, pulses present bilaterally Chest/Lungs: diminished bs bilaterally Symmetrical chest expansion, good air entry bilaterally GI/Abdomen: soft, NTND, good bowel sounds, no guarding or rebound /Bladder: no suprapubic tenderness, no CVA or paraspinal tenderness Extermity/Skin: no c/c/e, no obvious rash MSK: FROM x 4 Neuro: CN 2-12 grossly intact, no new focal deficits Psych: calm - Constitutional Vitals: Temp Pulse Resp BP Pulse Ox 101.3 F H 94 H 20 99/58 90 05/22/19 11:40 05/22/19 11:40 05/22/19 11:40 05/22/19 11:40 05/22/19 11:40 Results - Labs CBC & Chem 7: 05/22/19 04:57 05/22/19 04:57 Labs: Laboratory Last Values WBC 4.7 K/mm3 (4.5-11.0) 05/22/19 04:57 RBC 3.98 M/mm3 (3.65-5.03) 05/22/19 04:57 Hgb 13.3 gm/dl (11.8-15.2) 05/22/19 04:57 Hct 38.9 % (35.5-45.6) 05/22/19 04:57 MCV 98 fl (84-94) H 05/22/19 04:57 MCH 33 pg (28-32) H 05/22/19 04:57 MCHC 34 % (32-34) 05/22/19 04:57 RDW 13.5 % (13.2-15.2) 05/22/19 04:57 Plt Count 164 K/mm3 (140-440) 05/22/19 04:57 Lymph % (Auto) 10.4 % (13.4-35.0) L 05/22/19 04:57 [place] % (Auto) 5.1 % (0.0-7.3) 05/22/19 04:57 Eos % (Auto) 0.0 % (0.0-4.3) 05/22/19 04:57 Baso % (Auto) 0.5 % (0.0-1.8) 05/22/19 04:57 Lymph # 0.5 K/mm3 (1.2-5.4) L 05/22/19 04:57 [place] # 0.2 K/mm3 (0.0-0.8) 05/22/19 04:57 Eos # 0.0 K/mm3 (0.0-0.4) 05/22/19 04:57 Baso # 0.0 K/mm3 (0.0-0.1) 05/22/19 04:57 Seg Neutrophils % 84.0 % (40.0-70.0) H 05/22/19 04:57 Seg Neutrophils # 4.0 K/mm3 (1.8-7.7) 05/22/19 04:57 D-Dimer 1113.40 ng/mlDDU (0-234) H 05/21/19 00:23 Sodium 134 mmol/L (137-145) L 05/22/19 04:57 Potassium 4.1 mmol/L (3.6-5.0) 05/22/19 04:57 Chloride 98.9 mmol/L (98-107) 05/22/19 04:57 Carbon Dioxide 23 mmol/L (22-30) 05/22/19 04:57 Anion Gap 16 mmol/L 05/22/19 04:57 BUN 12 mg/dL (9-20) 05/22/19 04:57 Creatinine 1.0 mg/dL (0.8-1.5) 05/22/19 04:57 Estimated GFR > 60 ml/min 05/22/19 04:57 BUN/Creatinine Ratio 12 % 05/22/19 04:57 Glucose 102 mg/dL (75-100) H 05/22/19 04:57 Lactic Acid 1.70 mmol/L (0.7-2.0) 05/21/19 00:23 Calcium 7.6 mg/dL (8.4-10.2) L 05/22/19 04:57 Ferritin 2304.0 ng/mL (13.0-400.0) H 05/21/19 00:23 Total Bilirubin 0.70 mg/dL (0.1-1.2) 05/21/19 00:23 AST 157 units/L (5-40) H 05/21/19 00:23 ALT 62 units/L (7-56) H 05/21/19 00:23 Alkaline Phosphatase 45 units/L (35-129) 05/21/19 00:23 Lactate Dehydrogenase 703 units/L (91-180) H 05/21/19 03:24 C-Reactive Protein 6.10 mg/dL (0.00-1.30) H 05/21/19 03:24 Total Protein 7.9 g/dL (6.3-8.2) 05/21/19 00:23 Albumin 4.0 g/dL (3.9-5) 05/21/19 00:23 Albumin/Globulin Ratio 1.0 % 05/21/19 00:23 Procalcitonin 0.18 ng/mL (<0.15) 05/21/19 03:24 Influenza A (Rapid) Negative (Negative) 05/21/19 07:40 Influenza A (RT-PCR) Negative (Negative) 05/21/19 07:40 Influenza B (Rapid) Negative (Negative) 05/21/19 07:40 Influenza B (RT-PCR) Negative (Negative) 05/21/19 07:40 Miscellaneous Test See scanned result 05/21/19 Unknown Ceballos/IV: Voiding Method Toilet IV Catheter Type [Left INT / Saline Lock Antecubital] Active Medications - Current Medications Current Medications: Generic Name Dose Route Start Last Admin Trade Name Freq PRN Reason Stop Dose Admin Acetaminophen 650 mg 05/21/19 04:54 05/22/19 09:06 Tylenol PO 650 mg Q4H PRN Administration Pain MILD(1-3)/Fever >100.5/WALLS Albuterol 2.5 mg 05/22/19 09:54 Proventil IH Q4HRT PRN Shortness Of Breath Enoxaparin Sodium 40 mg 05/21/19 10:00 05/22/19 09:07 Enoxaparin SUB-Q 40 mg QAM EMILEE Administration Hydroxychloroquine Sulfate 200 mg 05/22/19 10:00 05/22/19 09:06 Plaquenil PO 05/25/19 22:01 200 mg BID EMILEE Administration Ceftriaxone Sodium 2 gm in 100 mls @ 200 mls/hr 05/21/19 10:00 05/22/19 09:07 Rocephin/Ns 2 Gm/100 Ml IV 200 mls/hr Q24HR EMILEE Administration Ondansetron HCl 4 mg 05/21/19 04:54 05/21/19 14:12 Zofran IV 4 mg Q8H PRN Administration Nausea And Vomiting Sodium Chloride 10 ml 05/21/19 10:00 05/22/19 09:07 Sodium Chloride Flush Syringe 10 Ml IV 10 ml BID EMILEE Administration Sodium Chloride 10 ml 05/21/19 04:54 Sodium Chloride Flush Syringe 10 Ml IV PRN PRN LINE FLUSH Zinc Sulfate 220 mg 05/21/19 12:00 05/22/19 14:25 Zinc Sulfate PO 05/25/19 12:01 220 mg DAILY@1200 EMILEE Administration
[2019-05-22] MEDS: ASCORBIC ACID 500 MG TAB PO SCH (21:52)
[2019-05-23] MEDS: ACETAMINOPHEN 325 MG TAB PO PRN ×3 (04:50→22:00)
[2019-05-23 05:58] LABS: C-Reactive Protein 11.3 mg/dL (0.00-1.30)
[2019-05-23] MEDS: ASCORBIC ACID 500 MG TAB PO SCH ×2 (09:57→21:39)
[2019-05-23] MEDS: cefTRIAXone/NS 2 GM/100 ML 2 GM/100 ML BAG IV SCH (09:57)
[2019-05-23] MEDS: HYDROXYCHLOROQUINE 200 MG TAB PO SCH ×2 (09:57→21:40)
[2019-05-23] MEDS: ENOXAPARIN 40 MG/0.4 ML INJ SUB-Q SCH (09:58)
--- NOTE | 2019-05-23 10:14 | Progress Note ---
Assessment and Plan Cultures: None Assessment: 48 years old male with no medical history, admitted on 05/20/2019 due to 3-day history of dry cough, subjective fever, and shortness of breath associated with dyspnea on exertion. Patient's tested positive for COVID last week: #High fever: continues with high fever; likely due to bilateral pneumonia #Severe COVID pneumonia: CTA showed multifocal bilateral groundglass opacities. Transmission likely from home as is COVID positive. COVID test POSITIVE. Risk for ARDS is high given elevated inflammatory markers. Inflammatory markers are elevated, ferritin 2304, LDH 703, d-dimer 1113. #Acute hypoxemia: now on 3L sats 90% but severe dyspnea #Elevated LFTs: Likely from COVID #Diarrhea: Likely due to COVID, which is a pneumo-enteropathic virus. Recommendations: MAY NEED INTUBATION, CLOSE MONITORING. please ensure in airborne precautions if intubating Follow up blood cultures check IL-6 - send-out may be a candidate for tociluzimab/steroids consider prophylactic anticoagulation Inflammatory markers largely improving. Trend 05/25/2019 Continue hydroxychloroquine (total 5 days) Continue ceftriaxone 2 gm IV q day Daily QT monitoring - stop plaquenil if QT interval >500 Will follow Hayley Samaniego MD [facility] ([facility] M: [phone] O: [phone] F: [phone] Subjective Date of service: 05/23/19 Principal diagnosis: pneumonia, viral Interval history: Ongoing SOB with exertion, fevers. PUI?: Yes COVID19: Positive (Please see scanned reports) Objective - Exam Narrative Exam: Narrative Exam: General appearance: Alert in mild rsp distress Eyes: limited due to lack of PPE HENT: Atraumatic; oropharynx limited due to lack of PPE Lungs: Appears mildly SOB CV: RRR Abdomen: limited due to lack of PPE Extremities: limited due to lack of PPE Skin: No rash. Psych: Appropriate affect, alert and oriented to person, place and time. Neuro: alert and oriented x 3. Moving all extremities - Constitutional Vitals: Vital Signs Temp Pulse Resp BP Pulse Ox 102.1 F H 93 H 24 98/63 92 05/23/19 04:42 05/23/19 04:42 05/23/19 04:42 05/23/19 04:42 05/23/19 09:20 Temperature -Last 24 Hours Temperature 102.1 F Temperature 101.0 F Temperature 99.0 F Temperature 101.3 F - Labs CBC & Chem 7: 05/22/19 04:57 05/22/19 04:57 Labs: Abnormal lab results 05/23/19 05/23/19 05/23/19 Range/Units 04:07 04:07 04:07 D-Dimer 871.56 H (0-234) ng/mlDDU Ferritin 2104.0 H (13.0-400.0) ng/mL Lactate Dehydrogenase 630 H (91-180) units/L C-Reactive Protein 11.30 H (0.00-1.30) mg/dL
--- NOTE | 2019-05-23 10:41 | Progress Note ---
Assessment and Plan 48 y/o male with close contact of COVID 19 patient admitted with hypoxemia and abnormal CXR/CT 1. Repeat CXR tomorrow. 2. Follow markers and ID recs 3. Continue supplemental oxygen and wean as tolerated for sats >88% 4. Hold on any lasix therapy 5. Suggest schedule tylenol to help with fever 6. Guarded prognosis, markers are improving, hopefully patient can turn corner. Subjective Date of service: 05/23/19 Principal diagnosis: pneumonia, viral Interval history: Respiratory status unchanged. Same sats on same flow of oxygen. CXR on showed slight worsening. Stopped IVF's. I/o likely not accurate but per chart took in 3liters yesterday. No output documented. PUI?: Yes COVID19: Positive (Please see scanned reports) Objective Vital Signs - 12hr 05/23/19 05/23/19 05/23/19 04:42 09:20 10:35 Temperature 102.1 F H Pulse Rate 93 H Respiratory 24 Rate Blood Pressure 98/63 O2 Sat by Pulse 92 92 94 Oximetry CBC and BMP: 05/22/19 04:57 05/22/19 04:57 ABG, PT/INR, D-dimer: PT/INR, D-dimer D-Dimer 871.56 ng/mlDDU (0-234) H 05/23/19 04:07 Abnormal lab findings: Abnormal Labs 05/21/19 05/21/19 05/21/19 00:23 00:23 00:23 MCV 98 H MCH 34 H Lymph % (Auto) 10.5 L [place] % (Auto) 7.8 H Lymph # 0.6 L Seg Neutrophils % 80.4 H D-Dimer 1113.40 H Sodium 129 L Chloride 94.0 L Glucose 123 H Calcium 8.0 L Ferritin AST 157 H ALT 62 H Lactate Dehydrogenase C-Reactive Protein 05/21/19 05/21/19 05/22/19 00:23 03:24 04:57 MCV 98 H MCH 33 H Lymph % (Auto) 10.4 L [place] % (Auto) Lymph # 0.5 L Seg Neutrophils % 84.0 H D-Dimer Sodium Chloride Glucose Calcium Ferritin 2304.0 H AST ALT Lactate Dehydrogenase 703 H C-Reactive Protein 6.10 H 05/22/19 05/23/19 05/23/19 04:57 04:07 04:07 MCV MCH Lymph % (Auto) [place] % (Auto) Lymph # Seg Neutrophils % D-Dimer 871.56 H Sodium 134 L Chloride Glucose 102 H Calcium 7.6 L Ferritin 2104.0 H AST ALT Lactate Dehydrogenase C-Reactive Protein 05/23/19 04:07 MCV MCH Lymph % (Auto) [place] % (Auto) Lymph # Seg Neutrophils % D-Dimer Sodium Chloride Glucose Calcium Ferritin AST ALT Lactate Dehydrogenase 630 H C-Reactive Protein 11.30 H
[2019-05-23] MEDS ORDERED: LOPERAMIDE 2 MG CAP PO PRN (11:02)
--- NOTE | 2019-05-23 11:02 | Progress Note ---
Assessment and Plan Assessment and plan: Patient is a 48 yo man without chronic medical problems who presents with SOB, cough, fever for 3 days prior to arrival to ED on 05/21/2019 and contact with who is positive for COVID 19. He was found to be hypoxic, 86% on room air. * pCXR Impression: 1. Bilateral airspace opacities. * CTA chest Impression: 1. No evidence of pulmonary embolus. 2. Multifocal groundglass opacities likely representing acute infection. Acute hypoxic respiratory failure: treat with supplemental O2, consult Pulm Sepsis pneumonia: treat with abx, consulted ID Bilateral pneumonia most likely COVID-19 related: start plaquenil, prone position, inflammatory marker q48 PUI COVID-19: await testing Hyponatremia related to above, poor prognostic sign: monitor closely, caution with IVFs due to COVID-19 Elevated mild transAminases: monitor periodically, most likely related to above DVT ppx: sq lovenox full code 05/22/19: COVID-19 came back positive today, already on plaquenil and zinc, He is still very weak, on 3 liters of O2, still hypoxic, repeat CXR looks worse, ca lled Dr. Donaldson. Inflammatory markers tomorrow. Patient is not in prone position at ordered, I tried to get him into the prone position but he was sooo weak and lethargic. I spoke with his who is [employer] and she is COVID 19 positive, she was exposed by one of her patients. Mr. Padilla started being sick last Saturday. 05/23/19: Markers improved except CRP. Still on 3 liters. If his symptoms begun on May 17 (5th day) then watch for the cytokine storm on Day 10 which is May 27. His diarrhea today most likely related to virus but abx related, will continue to monitor and treat symptomatically. History Interval history: Patient was seen and examined. Follow-up on current diagnosis bilateral PNA. Overnight uneventful as no events directly reported to me. Patient denies any chest pain, nausea/vomiting or severe headaches. Imaging, nursing note, chart, labs and old chart reviewed. Discussed with patient. Has diarrhea this morning, SOB still present PUI?: Yes COVID19: Positive (Please see scanned reports) Hospitalist Physical - Physical exam Narrative exam: Gen: ill appearing, mild respiratory distress Awake, Alert, Orientated HEENT: NCAT, EOMI, PERRL, OP Clear Neck: supple, no adenopathy, no thyromegaly, no JVD CVS/Heart: RRR, normal S1S2, pulses present bilaterally Chest/Lungs: diminished bs bilaterally Symmetrical chest expansion, good air entry bilaterally GI/Abdomen: soft, NTND, good bowel sounds, no guarding or rebound /Bladder: no suprapubic tenderness, no CVA or paraspinal tenderness Extermity/Skin: no c/c/e, no obvious rash MSK: FROM x 4 Neuro: CN 2-12 grossly intact, no new focal deficits Psych: calm - Constitutional Vitals: Temp Pulse Resp BP Pulse Ox 102.1 F H 93 H 24 98/63 94 05/23/19 04:42 05/23/19 04:42 05/23/19 04:42 05/23/19 04:42 05/23/19 10:35 Results - Labs CBC & Chem 7: 05/22/19 04:57 05/22/19 04:57 Labs: Laboratory Last Values WBC 4.7 K/mm3 (4.5-11.0) 05/22/19 04:57 RBC 3.98 M/mm3 (3.65-5.03) 05/22/19 04:57 Hgb 13.3 gm/dl (11.8-15.2) 05/22/19 04:57 Hct 38.9 % (35.5-45.6) 05/22/19 04:57 MCV 98 fl (84-94) H 05/22/19 04:57 MCH 33 pg (28-32) H 05/22/19 04:57 MCHC 34 % (32-34) 05/22/19 04:57 RDW 13.5 % (13.2-15.2) 05/22/19 04:57 Plt Count 164 K/mm3 (140-440) 05/22/19 04:57 Lymph % (Auto) 10.4 % (13.4-35.0) L 05/22/19 04:57 [place] % (Auto) 5.1 % (0.0-7.3) 05/22/19 04:57 Eos % (Auto) 0.0 % (0.0-4.3) 05/22/19 04:57 Baso % (Auto) 0.5 % (0.0-1.8) 05/22/19 04:57 Lymph # 0.5 K/mm3 (1.2-5.4) L 05/22/19 04:57 [place] # 0.2 K/mm3 (0.0-0.8) 05/22/19 04:57 Eos # 0.0 K/mm3 (0.0-0.4) 05/22/19 04:57 Baso # 0.0 K/mm3 (0.0-0.1) 05/22/19 04:57 Seg Neutrophils % 84.0 % (40.0-70.0) H 05/22/19 04:57 Seg Neutrophils # 4.0 K/mm3 (1.8-7.7) 05/22/19 04:57 D-Dimer 871.56 ng/mlDDU (0-234) H 05/23/19 04:07 Sodium 134 mmol/L (137-145) L 05/22/19 04:57 Potassium 4.1 mmol/L (3.6-5.0) 05/22/19 04:57 Chloride 98.9 mmol/L (98-107) 05/22/19 04:57 Carbon Dioxide 23 mmol/L (22-30) 05/22/19 04:57 Anion Gap 16 mmol/L 05/22/19 04:57 BUN 12 mg/dL (9-20) 05/22/19 04:57 Creatinine 1.0 mg/dL (0.8-1.5) 05/22/19 04:57 Estimated GFR > 60 ml/min 05/22/19 04:57 BUN/Creatinine Ratio 12 % 05/22/19 04:57 Glucose 102 mg/dL (75-100) H 05/22/19 04:57 Lactic Acid 1.70 mmol/L (0.7-2.0) 05/21/19 00:23 Calcium 7.6 mg/dL (8.4-10.2) L 05/22/19 04:57 Ferritin 2104.0 ng/mL (13.0-400.0) H 05/23/19 04:07 Total Bilirubin 0.70 mg/dL (0.1-1.2) 05/21/19 00:23 AST 157 units/L (5-40) H 05/21/19 00:23 ALT 62 units/L (7-56) H 05/21/19 00:23 Alkaline Phosphatase 45 units/L (35-129) 05/21/19 00:23 Lactate Dehydrogenase 630 units/L (91-180) H 05/23/19 04:07 C-Reactive Protein 11.30 mg/dL (0.00-1.30) H 05/23/19 04:07 Total Protein 7.9 g/dL (6.3-8.2) 05/21/19 00:23 Albumin 4.0 g/dL (3.9-5) 05/21/19 00:23 Albumin/Globulin Ratio 1.0 % 05/21/19 00:23 Procalcitonin 0.18 ng/mL (<0.15) 05/21/19 03:24 Influenza A (Rapid) Negative (Negative) 05/21/19 07:40 Influenza A (RT-PCR) Negative (Negative) 05/21/19 07:40 Influenza B (Rapid) Negative (Negative) 05/21/19 07:40 Influenza B (RT-PCR) Negative (Negative) 05/21/19 07:40 Miscellaneous Test See scanned result 05/21/19 Unknown Microbiology: Microbiology 05/22/19 19:27 Peripheral/Venous Blood Culture - Preliminary Culture in Progress 05/22/19 19:26 Peripheral/Venous Blood Culture - Preliminary Culture in Progress Ceballos/IV: Voiding Method Bedside Commode IV Catheter Type [Left INT / Saline Lock Antecubital] Active Medications - Current Medications Current Medications: Generic Name Dose Route Start Last Admin Trade Name Freq PRN Reason Stop Dose Admin Acetaminophen 650 mg 05/21/19 04:54 05/23/19 04:50 Tylenol PO 650 mg Q4H PRN Administration Pain MILD(1-3)/Fever >100.5/WALLS Albuterol 2.5 mg 05/22/19 09:54 Proventil IH Q4HRT PRN Shortness Of Breath Ascorbic Acid 1,000 mg 05/22/19 22:00 05/23/19 09:57 Vitamin C PO 1,000 mg BID EMILEE Administration Enoxaparin Sodium 40 mg 05/21/19 10:00 05/23/19 09:58 Enoxaparin SUB-Q 40 mg QAM EMILEE Administration Hydroxychloroquine Sulfate 200 mg 05/22/19 10:00 05/23/19 09:57 Plaquenil PO 05/25/19 22:01 200 mg BID EMILEE Administration Ceftriaxone Sodium 2 gm in 100 mls @ 200 mls/hr 05/21/19 10:00 05/23/19 09:57 Rocephin/Ns 2 Gm/100 Ml IV 200 mls/hr Q24HR EMILEE Administration Ondansetron HCl 4 mg 05/21/19 04:54 05/21/19 14:12 Zofran IV 4 mg Q8H PRN Administration Nausea And Vomiting Sodium Chloride 10 ml 05/21/19 10:00 05/23/19 09:58 Sodium Chloride Flush Syringe 10 Ml IV 10 ml BID EMILEE Administration Sodium Chloride 10 ml 05/21/19 04:54 Sodium Chloride Flush Syringe 10 Ml IV PRN PRN LINE FLUSH Zinc Sulfate 220 mg 05/21/19 12:00 05/22/19 14:25 Zinc Sulfate PO 05/25/19 12:01 220 mg DAILY@1200 EMILEE Administration
[2019-05-23] MEDS: ZINC SULFATE 220 MG CAP PO SCH (11:07)
[2019-05-24] MEDS: cefTRIAXone/NS 2 GM/100 ML 2 GM/100 ML BAG IV SCH (09:12)
[2019-05-24] MEDS: HYDROXYCHLOROQUINE 200 MG TAB PO SCH ×4 (09:13→23:37)
[2019-05-24] MEDS: ENOXAPARIN 40 MG/0.4 ML INJ SUB-Q SCH (09:13)
[2019-05-24] MEDS: ASCORBIC ACID 500 MG TAB PO SCH ×2 (09:13→21:31)
--- NOTE | 2019-05-24 10:02 | Progress Note ---
Assessment and Plan 48 y/o male with close contact of COVID 19 patient admitted with hypoxemia and abnormal CXR/CT 1. Repeat CXR appears stable, but clinically not improving, worsening. Oxygen requirement has gone up. 2. Follow markers and ID recs. No labs done today but all markers were down with the exception of CRP. 3. Continue supplemental oxygen and wean as tolerated for sats >88%. Will discuss with patient, the possibility of intubation. 4. Hold on any lasix therapy 5. Suggest schedule tylenol to help with fever 6. Guarded prognosis, markers are improving, hopefully patient can turn corner. More concerned today given increases in oxygen requirements. Subjective Date of service: 05/24/19 Principal diagnosis: pneumonia, viral Interval history: Continues to spike temps and now oxygen requirement has increased. Currently on 5 liters with sat of 95, RR in the 20's. CXR is stable, does not appear worse but waiting on official read by rads. PUI?: Yes COVID19: Positive (Please see scanned reports) Objective Vital Signs - 12hr 05/24/19 05/24/19 06:17 08:33 Temperature 100.5 F H Pulse Rate 89 Respiratory 20 Rate Blood Pressure 100/66 O2 Sat by Pulse 93 95 Oximetry CBC and BMP: 05/22/19 04:57 05/22/19 04:57 ABG, PT/INR, D-dimer: PT/INR, D-dimer D-Dimer 871.56 ng/mlDDU (0-234) H 05/23/19 04:07 Abnormal lab findings: Abnormal Labs 05/21/19 05/21/19 05/21/19 00:23 00:23 00:23 MCV 98 H MCH 34 H Lymph % (Auto) 10.5 L [place] % (Auto) 7.8 H Lymph # 0.6 L Seg Neutrophils % 80.4 H D-Dimer 1113.40 H Sodium 129 L Chloride 94.0 L Glucose 123 H Calcium 8.0 L Ferritin AST 157 H ALT 62 H Lactate Dehydrogenase C-Reactive Protein 05/21/19 05/21/19 05/22/19 00:23 03:24 04:57 MCV 98 H MCH 33 H Lymph % (Auto) 10.4 L [place] % (Auto) Lymph # 0.5 L Seg Neutrophils % 84.0 H D-Dimer Sodium Chloride Glucose Calcium Ferritin 2304.0 H AST ALT Lactate Dehydrogenase 703 H C-Reactive Protein 6.10 H 05/22/19 05/23/19 05/23/19 04:57 04:07 04:07 MCV MCH Lymph % (Auto) [place] % (Auto) Lymph # Seg Neutrophils % D-Dimer 871.56 H Sodium 134 L Chloride Glucose 102 H Calcium 7.6 L Ferritin 2104.0 H AST ALT Lactate Dehydrogenase C-Reactive Protein 05/23/19 04:07 MCV MCH Lymph % (Auto) [place] % (Auto) Lymph # Seg Neutrophils % D-Dimer Sodium Chloride Glucose Calcium Ferritin AST ALT Lactate Dehydrogenase 630 H C-Reactive Protein 11.30 H
--- NOTE | 2019-05-24 10:43 | Progress Note ---
Assessment and Plan Assessment and plan: Patient is a 48 yo man without chronic medical problems who presents with SOB, cough, fever for 3 days prior to arrival to ED on 05/21/2019 and contact with who is positive for COVID 19. He was found to be hypoxic, 86% on room air. * pCXR Impression: 1. Bilateral airspace opacities. * CTA chest Impression: 1. No evidence of pulmonary embolus. 2. Multifocal groundglass opacities likely representing acute infection. Acute hypoxic respiratory failure: treat with supplemental O2, consult Pulm Sepsis pneumonia: treat with abx, consulted ID Bilateral pneumonia most likely COVID-19 related: start plaquenil, prone position, inflammatory marker q48 PUI COVID-19: await testing Hyponatremia related to above, poor prognostic sign: monitor closely, caution with IVFs due to COVID-19 Elevated mild transAminases: monitor periodically, most likely related to above DVT ppx: sq lovenox full code 05/22/19: COVID-19 came back positive today, already on plaquenil and zinc, He is still very weak, on 3 liters of O2, still hypoxic, repeat CXR looks worse, ca lled Dr. Donaldson. Inflammatory markers tomorrow. Patient is not in prone position at ordered, I tried to get him into the prone position but he was sooo weak and lethargic. I spoke with his who is [employer] and she is COVID 19 positive, she was exposed by one of her patients. Mr. Padilla started being sick last Saturday. 05/23/19: Markers improved except CRP. Still on 3 liters. If his symptoms begun on May 17 ( day) then watch for the cytokine storm on Day 10 which is May 27. His diarrhea today most likely related to virus vs abx related, will continue to monitor and treat symptomatically. 05/24/19: patient without any specific complaints but On 5 liters of O2 now, still too weak to get into prone, d/w Dr. Donaldson, I called and d/w his Asha Morel [phone]. Patient is on plaquenil, rocephin, and zinc. History Interval history: Patient was seen and examined. Follow-up on current diagnosis bilateral PNA. Overnight uneventful as no events directly reported to me. Patient denies any chest pain, nausea/vomiting or severe headaches. Imaging, nursing note, chart, labs and old chart reviewed. Discussed with patient. Has diarrhea this morning, SOB still present PUI?: Yes COVID19: Positive (Please see scanned reports) Hospitalist Physical - Physical exam Narrative exam: Gen: ill appearing, mild respiratory distress Awake, Alert, Orientated HEENT: NCAT, EOMI, PERRL, OP Clear Neck: supple, no adenopathy, no thyromegaly, no JVD CVS/Heart: RRR, normal S1S2, pulses present bilaterally Chest/Lungs: diminished bs bilaterally Symmetrical chest expansion, good air entry bilaterally GI/Abdomen: soft, NTND, good bowel sounds, no guarding or rebound /Bladder: no suprapubic tenderness, no CVA or paraspinal tenderness Extermity/Skin: no c/c/e, no obvious rash MSK: FROM x 4 Neuro: CN 2-12 grossly intact, no new focal deficits Psych: calm - Constitutional Vitals: Temp Pulse Resp BP Pulse Ox 100.5 F H 89 20 100/66 95 05/24/19 06:17 05/24/19 06:17 05/24/19 06:17 05/24/19 06:17 05/24/19 08:33 Results - Labs CBC & Chem 7: 05/22/19 04:57 05/22/19 04:57 Labs: Laboratory Last Values WBC 4.7 K/mm3 (4.5-11.0) 05/22/19 04:57 RBC 3.98 M/mm3 (3.65-5.03) 05/22/19 04:57 Hgb 13.3 gm/dl (11.8-15.2) 05/22/19 04:57 Hct 38.9 % (35.5-45.6) 05/22/19 04:57 MCV 98 fl (84-94) H 05/22/19 04:57 MCH 33 pg (28-32) H 05/22/19 04:57 MCHC 34 % (32-34) 05/22/19 04:57 RDW 13.5 % (13.2-15.2) 05/22/19 04:57 Plt Count 164 K/mm3 (140-440) 05/22/19 04:57 Lymph % (Auto) 10.4 % (13.4-35.0) L 05/22/19 04:57 [place] % (Auto) 5.1 % (0.0-7.3) 05/22/19 04:57 Eos % (Auto) 0.0 % (0.0-4.3) 05/22/19 04:57 Baso % (Auto) 0.5 % (0.0-1.8) 05/22/19 04:57 Lymph # 0.5 K/mm3 (1.2-5.4) L 05/22/19 04:57 [place] # 0.2 K/mm3 (0.0-0.8) 05/22/19 04:57 Eos # 0.0 K/mm3 (0.0-0.4) 05/22/19 04:57 Baso # 0.0 K/mm3 (0.0-0.1) 05/22/19 04:57 Seg Neutrophils % 84.0 % (40.0-70.0) H 05/22/19 04:57 Seg Neutrophils # 4.0 K/mm3 (1.8-7.7) 05/22/19 04:57 D-Dimer 871.56 ng/mlDDU (0-234) H 05/23/19 04:07 Sodium 134 mmol/L (137-145) L 05/22/19 04:57 Potassium 4.1 mmol/L (3.6-5.0) 05/22/19 04:57 Chloride 98.9 mmol/L (98-107) 05/22/19 04:57 Carbon Dioxide 23 mmol/L (22-30) 05/22/19 04:57 Anion Gap 16 mmol/L 05/22/19 04:57 BUN 12 mg/dL (9-20) 05/22/19 04:57 Creatinine 1.0 mg/dL (0.8-1.5) 05/22/19 04:57 Estimated GFR > 60 ml/min 05/22/19 04:57 BUN/Creatinine Ratio 12 % 05/22/19 04:57 Glucose 102 mg/dL (75-100) H 05/22/19 04:57 Lactic Acid 1.70 mmol/L (0.7-2.0) 05/21/19 00:23 Calcium 7.6 mg/dL (8.4-10.2) L 05/22/19 04:57 Ferritin 2104.0 ng/mL (13.0-400.0) H 05/23/19 04:07 Total Bilirubin 0.70 mg/dL (0.1-1.2) 05/21/19 00:23 AST 157 units/L (5-40) H 05/21/19 00:23 ALT 62 units/L (7-56) H 05/21/19 00:23 Alkaline Phosphatase 45 units/L (35-129) 05/21/19 00:23 Lactate Dehydrogenase 630 units/L (91-180) H 05/23/19 04:07 C-Reactive Protein 11.30 mg/dL (0.00-1.30) H 05/23/19 04:07 Total Protein 7.9 g/dL (6.3-8.2) 05/21/19 00:23 Albumin 4.0 g/dL (3.9-5) 05/21/19 00:23 Albumin/Globulin Ratio 1.0 % 05/21/19 00:23 Procalcitonin 0.18 ng/mL (<0.15) 05/21/19 03:24 Influenza A (Rapid) Negative (Negative) 05/21/19 07:40 Influenza A (RT-PCR) Negative (Negative) 05/21/19 07:40 Influenza B (Rapid) Negative (Negative) 05/21/19 07:40 Influenza B (RT-PCR) Negative (Negative) 05/21/19 07:40 Miscellaneous Test See scanned result 05/21/19 Unknown Microbiology: Microbiology 05/22/19 19:27 Peripheral/Venous Blood Culture - Preliminary NO GROWTH AFTER 24 HOURS 05/22/19 19:26 Peripheral/Venous Blood Culture - Preliminary NO GROWTH AFTER 24 HOURS Ceballos/IV: Voiding Method Bedside Commode IV Catheter Type [Left INT / Saline Lock Antecubital] Active Medications - Current Medications Current Medications: Generic Name Dose Route Start Last Admin Trade Name Freq PRN Reason Stop Dose Admin Acetaminophen 650 mg 05/21/19 04:54 05/23/19 22:00 Tylenol PO 650 mg Q4H PRN Administration Pain MILD(1-3)/Fever >100.5/WALLS Albuterol 2.5 mg 05/22/19 09:54 Proventil IH Q4HRT PRN Shortness Of Breath Ascorbic Acid 1,000 mg 05/22/19 22:00 05/24/19 09:13 Vitamin C PO 1,000 mg BID EMILEE Administration Enoxaparin Sodium 40 mg 05/21/19 10:00 05/24/19 09:13 Enoxaparin SUB-Q 40 mg QAM EMILEE Administration Hydroxychloroquine Sulfate 200 mg 05/22/19 10:00 05/24/19 09:13 Plaquenil PO 05/25/19 22:01 200 mg BID EMILEE Administration Ceftriaxone Sodium 2 gm in 100 mls @ 200 mls/hr 05/21/19 10:00 05/24/19 09:12 Rocephin/Ns 2 Gm/100 Ml IV 200 mls/hr Q24HR EMILEE Administration Loperamide HCl 2 mg 05/23/19 11:02 05/24/19 02:37 Imodium PO 2 mg Q2H PRN Administration Diarrhea Ondansetron HCl 4 mg 05/21/19 04:54 05/21/19 14:12 Zofran IV 4 mg Q8H PRN Administration Nausea And Vomiting Sodium Chloride 10 ml 05/21/19 10:00 05/24/19 09:14 Sodium Chloride Flush Syringe 10 Ml IV 10 ml BID EMILEE Administration Sodium Chloride 10 ml 05/21/19 04:54 Sodium Chloride Flush Syringe 10 Ml IV PRN PRN LINE FLUSH Zinc Sulfate 220 mg 05/21/19 12:00 05/23/19 11:07 Zinc Sulfate PO 05/25/19 12:01 220 mg DAILY@1200 EMILEE Administration
--- NOTE | 2019-05-24 10:43 | XRay Report ---
CHEST 1 VIEW, 05/24/2019 9:30 AM CLINICAL INFORMATION/INDICATION: Shortness of breath. Hypoxia. COMPARISON: Chest radiograph, 05/21/2017 FINDINGS: SUPPORT DEVICES: None. HEART: The cardiac silhouette is normal in size. LUNGS/PLEURA: Predominately bibasilar pulmonary opacities have slightly improved compared to the prev ious study. No pneumothorax or pleural effusion is visualized. ADDITIONAL FINDINGS: No additional acute findings. IMPRESSION: 1. Slight interval improvement of bibasilar pulmonary opacities. Signer Name: Kathi Bailey MD Signed: 05/24/2019 10:39 AM Workstation Name: [id number]
--- NOTE | 2019-05-24 14:02 | Event Note ---
Date: 05/24/19 Long discussion at bedside with patient and over the phone. Patient is visibly tachypnic in the mid 20's but oxygen has been turned down to 4. I am still very concerned about him and his respiratory status which I made clear to him and his . There is a high likelyhood he could require mechanical ventilation in the next 12-36 hours. RT's, and ICU charge all know about the patient. I am fine trying HFNC but if no improvement quickly, elective intubation is needed. Patient and are on board with this. Discussed with floor nurse and floor charge nurse as well.
[2019-05-24] MEDS: ACETAMINOPHEN 325 MG TAB PO PRN ×2 (16:15→21:33)
[2019-05-24] MEDS: ZINC SULFATE 220 MG CAP PO SCH (16:16)
[2019-05-25] MEDS: ACETAMINOPHEN 325 MG TAB PO PRN ×3 (05:34→19:51)
[2019-05-25 06:42] LABS: C-Reactive Protein 26.3 mg/dL (0.00-1.30)
[2019-05-25 07:48] LABS: ABG Base Excess -1.2 mmol/L (-2.0-3.0); ABG Oxygen Saturation 99.3 % (95.0-99.0); ABG PCO2 24.4 mm Hg; ABG PH 7.531 pH Units (7.350-7.450); ABG PO2 199.7 mm Hg (80.0-90.0)
[2019-05-25 07:49] LABS: ABG Methemoglobin 0.6 % (0.0-1.5)
--- NOTE | 2019-05-25 08:25 | Event Note ---
Date: 05/25/19 Reviewed chart. Patient found with sats in the 60's. Not sure if oxygen was just off or what. Placed on HFNC at 35% and 100. ABG on this, and not sure the amount of time showed a respiratory alkalosis and a PaO2 of 199. Significant V/Q mismatch but adequate oxygenation based on underlying diagnosis. Spoke with nursing and ask them to attempt a 20gauge IV in his AC for CTA testing to rule out pulmonary embolism. Full note to follow. Patient may require intubation today.
[2019-05-25] MEDS: HYDROXYCHLOROQUINE 200 MG TAB PO SCH ×2 (09:50→21:05)
[2019-05-25] MEDS: ENOXAPARIN 40 MG/0.4 ML INJ SUB-Q SCH (09:50)
[2019-05-25] MEDS: ASCORBIC ACID 500 MG TAB PO SCH ×2 (09:50→21:05)
[2019-05-25] MEDS: cefTRIAXone/NS 2 GM/100 ML 2 GM/100 ML BAG IV SCH (09:51)
[2019-05-25] MEDS: ZINC SULFATE 220 MG CAP PO SCH (11:51)
--- NOTE | 2019-05-25 11:54 | Progress Note ---
Assessment and Plan Assessment and plan: Patient is a 48 yo man without chronic medical problems who presents with SOB, cough, fever for 3 days prior to arrival to ED on 05/21/2019 and contact with who is positive for COVID 19. He was found to be hypoxic, 86% on room air. * pCXR Impression: 1. Bilateral airspace opacities. * CTA chest Impression: 1. No evidence of pulmonary embolus. 2. Multifocal groundglass opacities likely representing acute infection. Acute hypoxic respiratory failure: treat with supplemental O2, consult Pulm Sepsis pneumonia: treat with abx, consulted ID Bilateral pneumonia most likely COVID-19 related: start plaquenil, prone position, inflammatory marker q48 PUI COVID-19: await testing Hyponatremia related to above, poor prognostic sign: monitor closely, caution with IVFs due to COVID-19 Elevated mild transAminases: monitor periodically, most likely related to above DVT ppx: sq lovenox full code 05/22/19: COVID-19 came back positive today, already on plaquenil and zinc, He is still very weak, on 3 liters of O2, still hypoxic, repeat CXR looks worse, ca lled Dr. Donaldson. Inflammatory markers tomorrow. Patient is not in prone position at ordered, I tried to get him into the prone position but he was sooo weak and lethargic. I spoke with his who is [employer] and she is COVID 19 positive, she was exposed by one of her patients. Mr. Padilla started being sick last Saturday. 05/23/19: Markers improved except CRP. Still on 3 liters. If his symptoms begun on May 17 ( day) then watch for the cytokine storm on Day 10 which is May 27. His diarrhea today most likely related to virus vs abx related, will continue to monitor and treat symptomatically. 05/24/19: patient without any specific complaints but On 5 liters of O2 now, still too weak to get into prone, d/w Dr. Donaldson, I called and d/w his Asha Morel [phone]. Patient is on plaquenil, rocephin, and zinc. 05/25/19: On 80% high flow, possibly will be intubated soon, d/w Dr. Donaldson, wants CTA chest first. He will call . History Interval history: Patient was seen and examined. Follow-up on current diagnosis bilateral PNA. Overnight uneventful as no events directly reported to me. Patient denies any chest pain, nausea/vomiting or severe headaches. Imaging, nursing note, chart, labs and old chart reviewed. Discussed with patient. No diarrhea this morning, SOB still present, not eating. PUI?: Yes COVID19: Positive (Please see scanned reports) Hospitalist Physical - Physical exam Narrative exam: Gen: ill appearing, mild respiratory distress Awake, Alert, Orientated HEENT: NCAT, EOMI, PERRL, OP Clear Neck: supple, no adenopathy, no thyromegaly, no JVD CVS/Heart: RRR, normal S1S2, pulses present bilaterally Chest/Lungs: diminished bs bilaterally Symmetrical chest expansion, good air entry bilaterally GI/Abdomen: soft, NTND, good bowel sounds, no guarding or rebound /Bladder: no suprapubic tenderness, no CVA or paraspinal tenderness Extermity/Skin: no c/c/e, no obvious rash MSK: FROM x 4 Neuro: CN 2-12 grossly intact, no new focal deficits Psych: calm - Constitutional Vitals: Temp Pulse Resp BP Pulse Ox 98.6 F 91 H 20 127/64 97 05/25/19 05:40 05/25/19 05:40 05/25/19 05:40 05/25/19 05:40 05/25/19 10:00 Results - Labs CBC & Chem 7: 05/22/19 04:57 05/22/19 04:57 Labs: Laboratory Last Values WBC 4.7 K/mm3 (4.5-11.0) 05/22/19 04:57 RBC 3.98 M/mm3 (3.65-5.03) 05/22/19 04:57 Hgb 13.3 gm/dl (11.8-15.2) 05/22/19 04:57 Hct 38.9 % (35.5-45.6) 05/22/19 04:57 MCV 98 fl (84-94) H 05/22/19 04:57 MCH 33 pg (28-32) H 05/22/19 04:57 MCHC 34 % (32-34) 05/22/19 04:57 RDW 13.5 % (13.2-15.2) 05/22/19 04:57 Plt Count 164 K/mm3 (140-440) 05/22/19 04:57 Lymph % (Auto) 10.4 % (13.4-35.0) L 05/22/19 04:57 [place] % (Auto) 5.1 % (0.0-7.3) 05/22/19 04:57 Eos % (Auto) 0.0 % (0.0-4.3) 05/22/19 04:57 Baso % (Auto) 0.5 % (0.0-1.8) 05/22/19 04:57 Lymph # 0.5 K/mm3 (1.2-5.4) L 05/22/19 04:57 [place] # 0.2 K/mm3 (0.0-0.8) 05/22/19 04:57 Eos # 0.0 K/mm3 (0.0-0.4) 05/22/19 04:57 Baso # 0.0 K/mm3 (0.0-0.1) 05/22/19 04:57 Seg Neutrophils % 84.0 % (40.0-70.0) H 05/22/19 04:57 Seg Neutrophils # 4.0 K/mm3 (1.8-7.7) 05/22/19 04:57 D-Dimer 1505 ng/mlDDU (0-234) H 05/25/19 04:27 ABG pH 7.531 pH Units (7.350-7.450) H 05/25/19 06:16 ABG pCO2 24.4 mm Hg 05/25/19 06:16 ABG pO2 199.7 mm Hg (80.0-90.0) H 05/25/19 06:16 ABG HCO3 20.0 mmol/L (20.0-26.0) 05/25/19 06:16 ABG O2 Saturation 99.3 % (95.0-99.0) H 05/25/19 06:16 ABG O2 Content 18.1 (0.0-44) 05/25/19 06:16 ABG Base Excess -1.2 mmol/L (-2.0-3.0) 05/25/19 06:16 ABG Hemoglobin 12.9 gm/dl (14.0-18.0) L 05/25/19 06:16 ABG Carboxyhemoglobin 1.2 % (0.0-5.0) 05/25/19 06:16 ABG Methemoglobin 0.6 % (0.0-1.5) 05/25/19 06:16 Oxyhemoglobin 97.6 % (95.0-99.0) 05/25/19 06:16 FiO2 100 % 05/25/19 06:16 Sodium 134 mmol/L (137-145) L 05/22/19 04:57 Potassium 4.1 mmol/L (3.6-5.0) 05/22/19 04:57 Chloride 98.9 mmol/L (98-107) 05/22/19 04:57 Carbon Dioxide 23 mmol/L (22-30) 05/22/19 04:57 Anion Gap 16 mmol/L 05/22/19 04:57 BUN 12 mg/dL (9-20) 05/22/19 04:57 Creatinine 1.0 mg/dL (0.8-1.5) 05/22/19 04:57 Estimated GFR > 60 ml/min 05/22/19 04:57 BUN/Creatinine Ratio 12 % 05/22/19 04:57 Glucose 102 mg/dL (75-100) H 05/22/19 04:57 POC Glucose 108 (70-105) H 05/25/19 08:36 Lactic Acid 1.70 mmol/L (0.7-2.0) 05/21/19 00:23 Calcium 7.6 mg/dL (8.4-10.2) L 05/22/19 04:57 Ferritin > 2000.0 ng/mL (13.0-400.0) H 05/25/19 04:27 Total Bilirubin 0.70 mg/dL (0.1-1.2) 05/21/19 00:23 AST 157 units/L (5-40) H 05/21/19 00:23 ALT 62 units/L (7-56) H 05/21/19 00:23 Alkaline Phosphatase 45 units/L (35-129) 05/21/19 00:23 Lactate Dehydrogenase 708 units/L (91-180) H 05/25/19 04:27 C-Reactive Protein 26.30 mg/dL (0.00-1.30) H 05/25/19 04:27 Total Protein 7.9 g/dL (6.3-8.2) 05/21/19 00:23 Albumin 4.0 g/dL (3.9-5) 05/21/19 00:23 Albumin/Globulin Ratio 1.0 % 05/21/19 00:23 Procalcitonin 0.18 ng/mL (<0.15) 05/21/19 03:24 Influenza A (Rapid) Negative (Negative) 05/21/19 07:40 Influenza A (RT-PCR) Negative (Negative) 05/21/19 07:40 Influenza B (Rapid) Negative (Negative) 05/21/19 07:40 Influenza B (RT-PCR) Negative (Negative) 05/21/19 07:40 Miscellaneous Test See scanned result 05/21/19 Unknown Microbiology: Microbiology 05/22/19 19:27 Peripheral/Venous Blood Culture - Preliminary NO GROWTH AFTER 48 HOURS 05/22/19 19:26 Peripheral/Venous Blood Culture - Preliminary NO GROWTH AFTER 48 HOURS Ceballos/IV: Voiding Method Bedside Commode IV Catheter Type [Right Upper INT / Saline Lock arm] IV Catheter Type [Left INT / Saline Lock Antecubital] Active Medications - Current Medications Current Medications: Generic Name Dose Route Start Last Admin Trade Name Freq PRN Reason Stop Dose Admin Acetaminophen 650 mg 05/21/19 04:54 05/25/19 09:51 Tylenol PO 650 mg Q4H PRN Administration Pain MILD(1-3)/Fever >100.5/WALLS Albuterol 2.5 mg 05/22/19 09:54 Proventil IH Q4HRT PRN Shortness Of Breath Ascorbic Acid 1,000 mg 05/22/19 22:00 05/25/19 09:50 Vitamin C PO 1,000 mg BID EMILEE Administration Enoxaparin Sodium 40 mg 05/21/19 10:00 05/25/19 09:50 Enoxaparin SUB-Q 40 mg QAM EMILEE Administration Hydroxychloroquine Sulfate 200 mg 05/22/19 10:00 05/25/19 09:50 Plaquenil PO 05/25/19 22:01 200 mg BID EMILEE Administration Ceftriaxone Sodium 2 gm in 100 mls @ 200 mls/hr 05/21/19 10:00 05/25/19 09:51 Rocephin/Ns 2 Gm/100 Ml IV 200 mls/hr Q24HR EMILEE Administration Loperamide HCl 2 mg 05/23/19 11:02 05/24/19 02:37 Imodium PO 2 mg Q2H PRN Administration Diarrhea Ondansetron HCl 4 mg 05/21/19 04:54 05/21/19 14:12 Zofran IV 4 mg Q8H PRN Administration Nausea And Vomiting Sodium Chloride 10 ml 05/21/19 10:00 05/25/19 09:51 Sodium Chloride Flush Syringe 10 Ml IV 10 ml BID EMILEE Administration Sodium Chloride 10 ml 05/21/19 04:54 Sodium Chloride Flush Syringe 10 Ml IV PRN PRN LINE FLUSH Zinc Sulfate 220 mg 05/21/19 12:00 05/24/19 16:16 Zinc Sulfate PO 05/25/19 12:01 220 mg DAILY@1200 EMILEE Administration
--- NOTE | 2019-05-25 13:56 | Cat Scan Report ---
CTA CHEST WITH CONTRAST INDICATION : Tachypnea with hypoxemia, COVID Positive. TECHNIQUE: Axial imaging performed through the chest, with contrast bolus timing set to maximize opa cification of the pulmonary arteries. Sagittal and coronal reformatted images. 3-plane MIP reformatte d images were obtained. All CT scans at this location are performed using CT dose reduction for ALAR A by means of automated exposure control. 100 mL of intravenous contrast administered. COMPARISON: 05/21/2019 FINDINGS: Bolus: Contrast bolus timing is adequate. PTE: The images are somewhat limited secondary to breathing motion artifact. No pulmonary arterial f illing defect is detected. Mediastinum: Heart and great vessels appear normal. No pathologic mediastinal adenopathy. Lungs: Bilateral patchy groundglass infiltrates are again seen which have increased by 25-50%. No pl eural effusion or pneumothorax is detected. Bones: Degenerative changes in the spine with nothing acute. Upper abdomen: Limited imaging of the upper abdomen shows nothing acute. IMPRESSION: No pulmonary embolus is identified. Increased bilateral lung infiltrates as described since 05/21/2019 exam. Signer Name: Sridhar Negron Jr, MD Signed: 05/25/2019 1:51 PM Workstation Name: [id number]
--- NOTE | 2019-05-25 14:41 | Event Note ---
Date: 05/25/19 CTA negative and shows worsening parenchymal lung disease. Called and spoke with over the phone. Will electively intubate in the unit with help from anesthesia as patient will need paralytic. Deep sedation to help with oxygenation and possible proning if team or bed becomes available. Guarded prognosis as I discussed with the . I also explained to her that the ventilator is not a therapy, only a means to an end and that hopeful his lungs can turn around through this.
--- NOTE | 2019-05-25 14:53 | Progress Note ---
Assessment and Plan Cultures: 05/22/2019 Blood culture: negative Assessment: 48 years old male with no medical history, admitted on 05/20/2019 due to 3-day history of dry cough, subjective fever, and shortness of breath associated with dyspnea on exertion. Patient's tested positive for COVID last week: #Severe COVID pneumonia: CTA showed multifocal bilateral groundglass opacities. Transmission likely from home as is COVID positive. COVID test POSITIVE. Risk for ARDS is high given elevated inflammatory markers. Inflammatory markers are elevated, ferritin 2304, LDH 703, d-dimer 1113. #Acute hypoxic respiratory failure: on oxygen. Pulmonary following, considering mechanical ventilation #Elevated LFTs: Likely from COVID #Diarrhea: Likely due to COVID, which is a pneumo-enteropathic virus. Recommendations: may be a candidate for tocilizumab 400 mg x 1, followed by steroids Continue hydroxychloroquine (total 5 days) Continue ceftriaxone 2 gm IV q day Yaz Buchanan MD, FACP [facility] ([facility] C: [phone] O: [phone] F: [phone] Subjective Date of service: 05/25/19 Principal diagnosis: pneumonia, viral Interval history: Persistent fever. Chart reviewed. Increasing oxygen requirements. PUI?: Yes COVID19: Positive (Please see scanned reports) Objective - Exam Narrative Exam: Physical Exam (reviewed in chart due to PPE conservation) Constitutional: limited due to PPE conservation strategy Head, Ears, Nose: limited due to PPE conservation strategy Eyes: limited due to PPE conservation strategy Neck: limited due to PPE conservation strategy Oral: limited due to PPE conservation strategy Cardiovascular: limited due to PPE conservation strategy Respiratory: limited due to PPE conservation strategy GI: limited due to PPE conservation strategy Musculoskeletal: limited due to PPE conservation strategy Skin: limited due to PPE conservation strategy Hem/Lymphatic: limited due to PPE conservation strategy Psych: limited due to PPE conservation strategy Neurological: limited due to PPE conservation strategy - Constitutional Vitals: Vital Signs Temp Pulse Resp BP Pulse Ox 98.2 F 80 20 99/62 96 05/25/19 11:40 05/25/19 11:40 05/25/19 11:40 05/25/19 11:40 05/25/19 11:40 Temperature -Last 24 Hours Temperature 98.2 F Temperature 98.6 F Temperature 102.9 F Temperature 99.4 F Temperature 32.1 F Temperature 103.1 F - Labs CBC & Chem 7: 05/22/19 04:57 05/22/19 04:57 Labs: Abnormal lab results 05/25/19 05/25/19 05/25/19 Range/Units 04:27 04:27 04:27 D-Dimer 1505 H (0-234) ng/mlDDU ABG pH (7.350-7.450) pH Units ABG pO2 (80.0-90.0) mm Hg ABG O2 Saturation (95.0-99.0) % ABG Hemoglobin (14.0-18.0) gm/dl POC Glucose (70-105) Ferritin > 2000.0 H (13.0-400.0) ng/mL Lactate Dehydrogenase 708 H (91-180) units/L C-Reactive Protein 26.30 H (0.00-1.30) mg/dL 05/25/19 05/25/19 05/25/19 Range/Units 06:16 08:36 11:52 D-Dimer (0-234) ng/mlDDU ABG pH 7.531 H (7.350-7.450) pH Units ABG pO2 199.7 H (80.0-90.0) mm Hg ABG O2 Saturation 99.3 H (95.0-99.0) % ABG Hemoglobin 12.9 L (14.0-18.0) gm/dl POC Glucose 108 H 143 H (70-105) Ferritin (13.0-400.0) ng/mL Lactate Dehydrogenase (91-180) units/L C-Reactive Protein (0.00-1.30) mg/dL - Imaging and cardiology CT scan - chest: report reviewed, image reviewed (diffuse b/l infiltrates)
--- NOTE | 2019-05-25 15:37 | Event Note ---
Date: 05/25/19 Brought patient down to ICU for intubation. Patient states that he wishes for us to exercise some patience and not do this electively at this time. I explained to him that doing this electively is to eliminate the possibility of cardiac arrest and this being done emergently. I had had a conversation with he and his about this on yesterday. Im not sure what has happened over night. We will watch for now. Im hoping this does not become a code situation requiring emergent intubation.
[2019-05-25] MEDS: ENOXAPARIN 100 MG/1 ML INJ SUB-Q SCH ×2 (17:27→21:05)
[2019-05-26] MEDS: ACETAMINOPHEN 325 MG TAB PO PRN ×2 (00:47→21:04)
[2019-05-26] MEDS: ENOXAPARIN 100 MG/1 ML INJ SUB-Q SCH (09:12)
[2019-05-26] MEDS: cefTRIAXone/NS 2 GM/100 ML 2 GM/100 ML BAG IV SCH (09:13)
[2019-05-26] MEDS: ASCORBIC ACID 500 MG TAB PO SCH ×2 (09:13→21:04)
[2019-05-26] MEDS ORDERED: IVERMECTIN (NF) 3 MG TAB PO ONE (11:30)
--- NOTE | 2019-05-26 12:43 | Progress Note ---
Assessment and Plan 48 y/o male with close contact of COVID 19 patient admitted with hypoxemia and abnormal CXR/CT 1. Repeat CXR tomorrow. CT was negative for PE but did show worsening disease 2. Follow markers and ID recs. Markers to be done tomorrow. 3. Continues to spike temps. Last set of cultures 4 days ago. If and when spikes again should repeat 4. Hold on any lasix therapy 5. Suggest schedule tylenol to help with fever 6. Patient really should be intubated but given his wishes will hold off for now. Explain to him that in an emergent situation, not only is he put at risk but increasing the risk of spread of the virus to multiple people if he has to be intubated in a code situation. He expressed understanding. Will call to speak with her as well. Very very guarded prognosis. Subjective Date of service: 05/26/19 Principal diagnosis: pneumonia, viral Interval history: Brought patient down to ICU yesterday for elective intubation then patient refused. Now on NRB and HFNC at 100. Sat is reading 98% PUI?: Yes COVID19: Positive (Please see scanned reports) Objective Vital Signs - 12hr 05/26/19 05/26/19 05/26/19 00:41 00:42 00:51 Temperature 100.2 F H Pulse Rate 78 85 Respiratory 19 32 H Rate Blood Pressure 106/66 106/66 O2 Sat by Pulse 100 100 Oximetry 05/26/19 05/26/19 05/26/19 01:00 01:10 01:20 Temperature Pulse Rate 87 80 80 Respiratory 24 34 H 30 H Rate Blood Pressure 115/72 115/72 105/66 O2 Sat by Pulse 100 100 100 Oximetry 05/26/19 05/26/19 05/26/19 01:30 01:41 01:51 Temperature Pulse Rate 81 79 79 Respiratory 29 H 30 H 26 H Rate Blood Pressure 98/62 98/62 105/66 O2 Sat by Pulse 99 100 99 Oximetry 05/26/19 05/26/19 05/26/19 02:00 02:11 02:21 Temperature Pulse Rate 78 81 87 Respiratory 25 H 21 33 H Rate Blood Pressure 97/61 97/61 102/68 O2 Sat by Pulse 100 99 100 Oximetry 05/26/19 05/26/19 05/26/19 02:30 02:41 02:50 Temperature Pulse Rate 77 79 78 Respiratory 32 H 29 H 31 H Rate Blood Pressure 95/60 95/60 106/68 O2 Sat by Pulse 100 100 100 Oximetry 05/26/19 05/26/19 05/26/19 03:00 03:11 03:21 Temperature Pulse Rate 77 81 78 Respiratory 27 H 32 H 28 H Rate Blood Pressure 99/61 99/61 102/62 O2 Sat by Pulse 100 100 100 Oximetry 05/26/19 05/26/19 05/26/19 03:30 03:33 03:41 Temperature 98.9 F Pulse Rate 77 79 Respiratory 35 H 33 H Rate Blood Pressure 109/66 109/66 O2 Sat by Pulse 100 100 Oximetry 05/26/19 05/26/19 05/26/19 03:51 04:00 04:11 Temperature Pulse Rate 78 82 86 Respiratory 36 H 31 H 30 H Rate Blood Pressure 117/72 122/71 122/71 O2 Sat by Pulse 100 100 100 Oximetry 05/26/19 05/26/19 05/26/19 04:21 04:30 04:41 Temperature Pulse Rate 89 91 H 83 Respiratory 31 H 33 H 26 H Rate Blood Pressure 119/74 126/79 126/79 O2 Sat by Pulse 100 100 100 Oximetry 05/26/19 05/26/19 05/26/19 04:51 05:00 05:11 Temperature Pulse Rate 92 H 102 H 93 H Respiratory 29 H 35 H 30 H Rate Blood Pressure 120/78 120/78 114/73 O2 Sat by Pulse 100 100 100 Oximetry 05/26/19 05/26/19 05/26/19 05:21 05:30 05:41 Temperature Pulse Rate 98 H 99 H 97 H Respiratory 30 H 39 H 31 H Rate Blood Pressure 118/71 114/73 114/73 O2 Sat by Pulse 100 100 100 Oximetry 05/26/19 05/26/19 05/26/19 05:51 06:00 06:11 Temperature Pulse Rate 101 H 100 H 100 H Respiratory 28 H 31 H 25 H Rate Blood Pressure 110/70 113/68 113/68 O2 Sat by Pulse 100 100 100 Oximetry 05/26/19 05/26/19 05/26/19 06:21 06:30 06:41 Temperature Pulse Rate 99 H 101 H 100 H Respiratory 31 H 29 H 29 H Rate Blood Pressure 110/67 110/67 110/67 O2 Sat by Pulse 100 100 100 Oximetry 05/26/19 05/26/19 05/26/19 06:51 07:00 07:11 Temperature Pulse Rate 96 H 97 H 95 H Respiratory 30 H 35 H 26 H Rate Blood Pressure 107/68 106/65 106/65 O2 Sat by Pulse 99 99 99 Oximetry 05/26/19 05/26/19 05/26/19 07:21 07:30 07:41 Temperature Pulse Rate 94 H 95 H 93 H Respiratory 26 H 22 25 H Rate Blood Pressure 100/62 107/65 107/65 O2 Sat by Pulse 99 99 99 Oximetry 05/26/19 05/26/19 05/26/19 07:51 08:00 08:11 Temperature 98.6 F Pulse Rate 91 H 94 H 95 H Respiratory 26 H 26 H 26 H Rate Blood Pressure 107/64 106/63 106/63 O2 Sat by Pulse 99 99 98 Oximetry 05/26/19 05/26/19 05/26/19 08:21 08:30 08:40 Temperature Pulse Rate 93 H 92 H Respiratory 25 H 28 H Rate Blood Pressure 101/65 104/62 O2 Sat by Pulse 98 98 100 Oximetry 05/26/19 05/26/19 05/26/19 08:41 08:51 09:00 Temperature Pulse Rate 94 H 89 88 Respiratory 29 H 29 H 25 H Rate Blood Pressure 104/62 107/64 97/62 O2 Sat by Pulse 99 99 98 Oximetry 05/26/19 05/26/19 05/26/19 09:11 09:21 09:30 Temperature Pulse Rate 89 88 93 H Respiratory 29 H 28 H 31 H Rate Blood Pressure 97/62 102/62 102/64 O2 Sat by Pulse 99 99 100 Oximetry 05/26/19 05/26/19 05/26/19 09:41 09:51 10:00 Temperature Pulse Rate 89 92 H 93 H Respiratory 33 H 29 H 29 H Rate Blood Pressure 102/62 100/64 103/67 O2 Sat by Pulse 99 99 99 Oximetry 05/26/19 05/26/19 05/26/19 10:11 10:21 10:30 Temperature Pulse Rate 92 H 87 92 H Respiratory 29 H 30 H 33 H Rate Blood Pressure 103/67 103/69 104/66 O2 Sat by Pulse 100 100 100 Oximetry 05/26/19 05/26/19 05/26/19 10:41 10:51 11:00 Temperature Pulse Rate 90 94 H 92 H Respiratory 29 H 28 H 29 H Rate Blood Pressure 104/66 107/64 112/68 O2 Sat by Pulse 98 100 100 Oximetry 05/26/19 05/26/19 05/26/19 11:11 11:21 11:30 Temperature Pulse Rate 92 H 93 H 94 H Respiratory 29 H 31 H 32 H Rate Blood Pressure 112/68 106/67 105/68 O2 Sat by Pulse 99 98 98 Oximetry 05/26/19 05/26/19 05/26/19 11:41 11:51 12:00 Temperature 102.4 F H Pulse Rate 91 H 90 Respiratory 31 H 30 H Rate Blood Pressure 105/68 104/65 O2 Sat by Pulse 99 98 Oximetry CBC and BMP: 05/22/19 04:57 05/22/19 04:57 ABG, PT/INR, D-dimer: ABG ABG pH 7.531 pH Units (7.350-7.450) H 05/25/19 06:16 ABG pCO2 24.4 mm Hg 05/25/19 06:16 ABG pO2 199.7 mm Hg (80.0-90.0) H 05/25/19 06:16 ABG O2 Saturation 99.3 % (95.0-99.0) H 05/25/19 06:16 PT/INR, D-dimer D-Dimer 1505 ng/mlDDU (0-234) H 05/25/19 04:27 Abnormal lab findings: Abnormal Labs 05/21/19 05/21/19 05/21/19 00:23 00:23 00:23 MCV 98 H MCH 34 H Lymph % (Auto) 10.5 L [place] % (Auto) 7.8 H Lymph # 0.6 L Seg Neutrophils % 80.4 H D-Dimer 1113.40 H ABG pH ABG pO2 ABG O2 Saturation ABG Hemoglobin Sodium 129 L Chloride 94.0 L Glucose 123 H POC Glucose Calcium 8.0 L Ferritin AST 157 H ALT 62 H Lactate Dehydrogenase C-Reactive Protein 05/21/19 05/21/19 05/22/19 00:23 03:24 04:57 MCV 98 H MCH 33 H Lymph % (Auto) 10.4 L [place] % (Auto) Lymph # 0.5 L Seg Neutrophils % 84.0 H D-Dimer ABG pH ABG pO2 ABG O2 Saturation ABG Hemoglobin Sodium Chloride Glucose POC Glucose Calcium Ferritin 2304.0 H AST ALT Lactate Dehydrogenase 703 H C-Reactive Protein 6.10 H 05/22/19 05/23/19 05/23/19 04:57 04:07 04:07 MCV MCH Lymph % (Auto) [place] % (Auto) Lymph # Seg Neutrophils % D-Dimer 871.56 H ABG pH ABG pO2 ABG O2 Saturation ABG Hemoglobin Sodium 134 L Chloride Glucose 102 H POC Glucose Calcium 7.6 L Ferritin 2104.0 H AST ALT Lactate Dehydrogenase C-Reactive Protein 05/23/19 05/25/19 05/25/19 04:07 04:27 04:27 MCV MCH Lymph % (Auto) [place] % (Auto) Lymph # Seg Neutrophils % D-Dimer 1505 H ABG pH ABG pO2 ABG O2 Saturation ABG Hemoglobin Sodium Chloride Glucose POC Glucose Calcium Ferritin > 2000.0 H AST ALT Lactate Dehydrogenase 630 H C-Reactive Protein 11.30 H 05/25/19 05/25/19 05/25/19 04:27 06:16 08:36 MCV MCH Lymph % (Auto) [place] % (Auto) Lymph # Seg Neutrophils % D-Dimer ABG pH 7.531 H ABG pO2 199.7 H ABG O2 Saturation 99.3 H ABG Hemoglobin 12.9 L Sodium Chloride Glucose POC Glucose 108 H Calcium Ferritin AST ALT Lactate Dehydrogenase 708 H C-Reactive Protein 26.30 H 05/25/19 11:52 MCV MCH Lymph % (Auto) [place] % (Auto) Lymph # Seg Neutrophils % D-Dimer ABG pH ABG pO2 ABG O2 Saturation ABG Hemoglobin Sodium Chloride Glucose POC Glucose 143 H Calcium Ferritin AST ALT Lactate Dehydrogenase C-Reactive Protein
[2019-05-26] MEDS ORDERED: [UNRECOGNIZED DRUG - OTHER] IV ONE (12:46)
--- NOTE | 2019-05-26 12:46 | Progress Note ---
Assessment and Plan Cultures: 05/22/2019 Blood culture: negative Assessment: 48 years old male with no medical history, admitted on 05/20/2019 due to 3-day history of dry cough, subjective fever, and shortness of breath associated with dyspnea on exertion. Patient's tested positive for COVID last week: #Severe COVID pneumonia: CTA showed multifocal bilateral groundglass opacities. Transmission likely from home as is COVID positive. COVID test POSITIVE. Risk for ARDS is high given elevated inflammatory markers. Inflammatory markers are elevated, ferritin 2304, LDH 703, d-dimer 1113. #Acute hypoxic respiratory failure: on oxygen. Pulmonary following, considering mechanical ventilation #Elevated LFTs: Likely from COVID #Diarrhea: Likely due to COVID, which is a pneumo-enteropathic virus. Recommendations: ordered tocilizumab 400 mg x 1 to hopefully prevent intubation completed hydroxychloroquine Continue ceftriaxone 2 gm IV q day for now Yaz Buchanan MD, FACP [facility] C: [phone] O: [phone] F: [phone] Subjective Date of service: 05/26/19 Principal diagnosis: pneumonia, viral Interval history: Febrile. Now on NRB. In ICU. PUI?: Yes COVID19: Positive (Please see scanned reports) Objective - Exam Narrative Exam: Physical Exam (reviewed in chart due to PPE conservation) Constitutional: limited due to PPE conservation strategy Head, Ears, Nose: limited due to PPE conservation strategy Eyes: limited due to PPE conservation strategy Neck: limited due to PPE conservation strategy Oral: limited due to PPE conservation strategy Cardiovascular: limited due to PPE conservation strategy Respiratory: limited due to PPE conservation strategy GI: limited due to PPE conservation strategy Musculoskeletal: limited due to PPE conservation strategy Skin: limited due to PPE conservation strategy Hem/Lymphatic: limited due to PPE conservation strategy Psych: limited due to PPE conservation strategy Neurological: limited due to PPE conservation strategy - Constitutional Vitals: Vital Signs Temp Pulse Resp BP Pulse Ox 102.4 F H 90 30 H 104/65 98 05/26/19 12:00 05/26/19 11:51 05/26/19 11:51 05/26/19 11:51 05/26/19 11:51 Temperature -Last 24 Hours Temperature 102.4 F Temperature 98.6 F Temperature 98.9 F Temperature 100.2 F Temperature 100 F Temperature 103.5 F Temperature 98.6 F - Labs CBC & Chem 7: 05/22/19 04:57 05/22/19 04:57
--- NOTE | 2019-05-26 13:31 | Progress Note ---
Assessment and Plan Severe COVID pneumonia: - CTA showed multifocal bilateral groundglass opacities. Risk for ARDS is high given elevated inflammatory markers. - ordered tocilizumab 400 mg x 1 to hopefully prevent intubation - completed hydroxychloroquine - Continue ceftriaxone 2 gm IV q day for now Acute hypoxic respiratory failure: - on 100% FiO2. Pulmonary following, may need mechanical ventilation -Continue albuterol nebulizer per respiratory therapy protocol Sepsis, due to bilateral pneumonia with COVID. ID following, continue antibiotics Elevated LFT, likely due to sepsis from COVID Diarrhea, likely due to COVID, continue to monitor Hyponatremia, continue low volume IV fluid DVT prophylaxis, Lovenox Prognosis: Guarded Critical care time 25 minutes 05/25: Patient 100% FiO2 with nonrebreather. He is refusing/requesting to hold off for intubation. He was explained that this is an emergent situation and avoiding intubation could lead to cardiac arrest and also increase the risks of spread of the virus to multiple people if he has to get intubated during/following cardiac arrest. Brief history: 48 years old male with no medical history, admitted on 05/20/2019 due to 3-day history of dry cough, subjective fever, and shortness of breath associated with dyspnea on exertion. Patient's tested positive for COVID last week: Physical exam: Gen: ill appearing, mild respiratory distress Awake, Alert, Orientated HEENT: NCAT, EOMI, PERRL, OP Clear Neck: supple, no adenopathy, no thyromegaly, no JVD CVS/Heart: RRR, normal S1S2, pulses present bilaterally Chest/Lungs: diminished bs bilaterally Symmetrical chest expansion, good air entry bilaterally GI/Abdomen: soft, NTND, good bowel sounds, no guarding or rebound /Bladder: no suprapubic tenderness, no CVA or paraspinal tenderness Extermity/Skin: no c/c/e, no obvious rash MSK: FROM x 4 Neuro: CN 2-12 grossly intact, no new focal deficits Psych: calm Subjective Date of service: 05/26/19 Principal diagnosis: pneumonia, viral Interval history: Patient seen and examined. Medical records and medication list reviewed. No acute event overnight noted by the RN. Patient has significant difficulty breathing. He is still requesting to hold intubation for now Discussed plan of care at bedside with patient. PUI?: Yes COVID19: Positive (Please see scanned reports) Objective - Constitutional Vitals: Vital Signs - 12hr 05/26/19 05/26/19 05/26/19 01:30 01:41 01:51 Temperature Pulse Rate 81 79 79 Respiratory 29 H 30 H 26 H Rate Blood Pressure 98/62 98/62 105/66 O2 Sat by Pulse 99 100 99 Oximetry 05/26/19 05/26/19 05/26/19 02:00 02:11 02:21 Temperature Pulse Rate 78 81 87 Respiratory 25 H 21 33 H Rate Blood Pressure 97/61 97/61 102/68 O2 Sat by Pulse 100 99 100 Oximetry 05/26/19 05/26/19 05/26/19 02:30 02:41 02:50 Temperature Pulse Rate 77 79 78 Respiratory 32 H 29 H 31 H Rate Blood Pressure 95/60 95/60 106/68 O2 Sat by Pulse 100 100 100 Oximetry 05/26/19 05/26/19 05/26/19 03:00 03:11 03:21 Temperature Pulse Rate 77 81 78 Respiratory 27 H 32 H 28 H Rate Blood Pressure 99/61 99/61 102/62 O2 Sat by Pulse 100 100 100 Oximetry 05/26/19 05/26/19 05/26/19 03:30 03:33 03:41 Temperature 98.9 F Pulse Rate 77 79 Respiratory 35 H 33 H Rate Blood Pressure 109/66 109/66 O2 Sat by Pulse 100 100 Oximetry 05/26/19 05/26/19 05/26/19 03:51 04:00 04:11 Temperature Pulse Rate 78 82 86 Respiratory 36 H 31 H 30 H Rate Blood Pressure 117/72 122/71 122/71 O2 Sat by Pulse 100 100 100 Oximetry 05/26/19 05/26/19 05/26/19 04:21 04:30 04:41 Temperature Pulse Rate 89 91 H 83 Respiratory 31 H 33 H 26 H Rate Blood Pressure 119/74 126/79 126/79 O2 Sat by Pulse 100 100 100 Oximetry 05/26/19 05/26/19 05/26/19 04:51 05:00 05:11 Temperature Pulse Rate 92 H 102 H 93 H Respiratory 29 H 35 H 30 H Rate Blood Pressure 120/78 120/78 114/73 O2 Sat by Pulse 100 100 100 Oximetry 04/14/20 04/14/20 04/14/20 05:21 05:30 05:41 Temperature Pulse Rate 98 H 99 H 97 H Respiratory 30 H 39 H 31 H Rate Blood Pressure 118/71 114/73 114/73 O2 Sat by Pulse 100 100 100 Oximetry 05/26/19 05/26/19 05/26/19 05:51 06:00 06:11 Temperature Pulse Rate 101 H 100 H 100 H Respiratory 28 H 31 H 25 H Rate Blood Pressure 110/70 113/68 113/68 O2 Sat by Pulse 100 100 100 Oximetry 05/26/19 05/26/19 05/26/19 06:21 06:30 06:41 Temperature Pulse Rate 99 H 101 H 100 H Respiratory 31 H 29 H 29 H Rate Blood Pressure 110/67 110/67 110/67 O2 Sat by Pulse 100 100 100 Oximetry 05/26/19 05/26/19 05/26/19 06:51 07:00 07:11 Temperature Pulse Rate 96 H 97 H 95 H Respiratory 30 H 35 H 26 H Rate Blood Pressure 107/68 106/65 106/65 O2 Sat by Pulse 99 99 99 Oximetry 05/26/19 05/26/19 05/26/19 07:21 07:30 07:41 Temperature Pulse Rate 94 H 95 H 93 H Respiratory 26 H 22 25 H Rate Blood Pressure 100/62 107/65 107/65 O2 Sat by Pulse 99 99 99 Oximetry 05/26/19 05/26/19 05/26/19 07:51 08:00 08:11 Temperature 98.6 F Pulse Rate 91 H 94 H 95 H Respiratory 26 H 26 H 26 H Rate Blood Pressure 107/64 106/63 106/63 O2 Sat by Pulse 99 99 98 Oximetry 05/26/19 05/26/19 05/26/19 08:21 08:30 08:40 Temperature Pulse Rate 93 H 92 H Respiratory 25 H 28 H Rate Blood Pressure 101/65 104/62 O2 Sat by Pulse 98 98 100 Oximetry 05/26/19 05/26/19 05/26/19 08:41 08:51 09:00 Temperature Pulse Rate 94 H 89 88 Respiratory 29 H 29 H 25 H Rate Blood Pressure 104/62 107/64 97/62 O2 Sat by Pulse 99 99 98 Oximetry 05/26/19 05/26/19 05/26/19 09:11 09:21 09:30 Temperature Pulse Rate 89 88 93 H Respiratory 29 H 28 H 31 H Rate Blood Pressure 97/62 102/62 102/64 O2 Sat by Pulse 99 99 100 Oximetry 05/26/19 05/26/19 05/26/19 09:41 09:51 10:00 Temperature Pulse Rate 89 92 H 93 H Respiratory 33 H 29 H 29 H Rate Blood Pressure 102/62 100/64 103/67 O2 Sat by Pulse 99 99 99 Oximetry 05/26/19 05/26/19 05/26/19 10:11 10:21 10:30 Temperature Pulse Rate 92 H 87 92 H Respiratory 29 H 30 H 33 H Rate Blood Pressure 103/67 103/69 104/66 O2 Sat by Pulse 100 100 100 Oximetry 05/26/19 05/26/19 05/26/19 10:41 10:51 11:00 Temperature Pulse Rate 90 94 H 92 H Respiratory 29 H 28 H 29 H Rate Blood Pressure 104/66 107/64 112/68 O2 Sat by Pulse 98 100 100 Oximetry 05/26/19 05/26/19 05/26/19 11:11 11:21 11:30 Temperature Pulse Rate 92 H 93 H 94 H Respiratory 29 H 31 H 32 H Rate Blood Pressure 112/68 106/67 105/68 O2 Sat by Pulse 99 98 98 Oximetry 05/26/19 05/26/19 05/26/19 11:41 11:51 12:00 Temperature 102.4 F H Pulse Rate 91 H 90 Respiratory 31 H 30 H Rate Blood Pressure 105/68 104/65 O2 Sat by Pulse 99 98 Oximetry - Labs CBC & Chem 7: 05/22/19 04:57 05/22/19 04:57
--- NOTE | 2019-05-26 13:54 | Event Note ---
Date: 05/26/19 Spoke to patient's on the phone. Discussed risks and benefits of Actemra off label use. Patient with 100% NRB and impending intubation. Discussed high mortality risk. COVID-19 patients requiring mechanical ventilation have a >50% mortality. Given persistent fever, high oxygen requirements, elevated markers, I feel the risks of Actemra outweigh the benefits. She is agreeable. D/W Dr. Donaldson and pharmacy.
[2019-05-26] MEDS ORDERED: TOCILIZUMAB 400 MG in SODIUM CHLORIDE 0.9% 100 ML IV ONE (14:00)
--- NOTE | 2019-05-27 03:55 | XRay Report ---
CHEST 1 VIEW 2:35 AM INDICATION / CLINICAL INFORMATION: Hypoxemia. COVID-19 Status: Positive COMPARISON: 05/24/19 FINDINGS: SUPPORT DEVICES: None. HEART / MEDIASTINUM: Stable. LUNGS / PLEURA: Patchy bilateral pulmonary opacities are slightly more conspicuous. No pneumothorax. ADDITIONAL FINDINGS: No significant additional findings. IMPRESSION: 1. Slight interval worsening of bilateral pulmonary opacities. Signer Name: Wesley Ba MD Signed: 05/27/2019 3:51 AM Workstation Name: [email or web address]
[2019-05-27 05:29] LABS: Hepatitis B Surface Antigen Non-Reactive (Negative); Hepatitis C Virus Antibody Non-Reactive (NonReactive)
[2019-05-27] MEDS: cefTRIAXone/NS 2 GM/100 ML 2 GM/100 ML BAG IV SCH (09:08)
[2019-05-27] MEDS: ENOXAPARIN 40 MG/0.4 ML INJ SUB-Q SCH (09:08)
[2019-05-27] MEDS: ASCORBIC ACID 500 MG TAB PO SCH ×2 (09:08→21:06)
--- NOTE | 2019-05-27 09:57 | Progress Note ---
Assessment and Plan 48 y/o male with close contact of COVID 19 patient admitted with hypoxemia and abnormal CXR/CT 1. CXR appears stable although rads suggest slightly worse. I think they are comparing to CXR from several days ago as oppose to CT done on 05/24 2. Follow markers and ID recs. Markers have not been posted yet. 3. Did not get repeat cultures on yesterday with temp spike. Will ask ID if they feel this is even warranted. 4. Hold on any lasix therapy 5. Suggest schedule tylenol to help with fever 6. Patient really should be intubated but given his wishes will hold off for now. Explained to him that in an emergent situation, not only is he put at risk but increasing the risk of spread of the virus to multiple people if he has to b e intubated in a code situation. He expressed understanding. Spoke with who is going to speak with the patient about lying on his stomach and trying to help him cooperate with us. Very very guarded prognosis. Subjective Date of service: 05/27/19 Principal diagnosis: pneumonia, viral Interval history: No acute events. Still on HFNC at 100% but down to 25 liters. NRB is off. Got Actemra yesterday. Appears to have tolerated well. No fever since yesterday at noon. Not being compliant with oxygen therapy. PUI?: Yes COVID19: Positive (Please see scanned reports) Objective Vital Signs - 12hr 05/26/19 05/26/19 05/26/19 22:00 22:11 22:21 Temperature Pulse Rate 81 76 74 Respiratory 32 H 29 H 29 H Rate Blood Pressure 108/73 108/73 105/71 O2 Sat by Pulse 95 96 97 Oximetry 05/26/19 05/26/19 05/26/19 22:30 22:41 22:51 Temperature Pulse Rate 81 76 81 Respiratory 32 H 25 H 30 H Rate Blood Pressure 109/69 109/69 105/71 O2 Sat by Pulse 90 95 93 Oximetry 05/26/19 05/26/19 05/26/19 23:00 23:11 23:21 Temperature Pulse Rate 73 78 81 Respiratory 22 34 H 34 H Rate Blood Pressure 99/67 99/67 98/65 O2 Sat by Pulse 96 96 96 Oximetry 05/26/19 05/26/19 05/26/19 23:30 23:41 23:51 Temperature Pulse Rate 75 71 70 Respiratory 26 H 19 24 Rate Blood Pressure 100/66 100/66 97/67 O2 Sat by Pulse 95 98 96 Oximetry 05/27/19 05/27/19 05/27/19 00:00 00:01 00:11 Temperature 98.8 F Pulse Rate 72 71 73 Respiratory 25 H 30 H 21 Rate Blood Pressure 97/69 97/69 97/69 O2 Sat by Pulse 97 98 95 Oximetry 05/27/19 05/27/19 05/27/19 00:21 00:30 00:41 Temperature Pulse Rate 68 72 73 Respiratory 26 H 27 H 25 H Rate Blood Pressure 106/70 97/67 97/67 O2 Sat by Pulse 97 98 98 Oximetry 05/27/19 05/27/19 05/27/19 00:51 01:00 01:11 Temperature Pulse Rate 71 68 66 Respiratory 24 21 21 Rate Blood Pressure 97/70 104/71 104/71 O2 Sat by Pulse 98 98 99 Oximetry 05/27/19 05/27/19 05/27/19 01:21 01:30 01:41 Temperature Pulse Rate 68 62 63 Respiratory 23 19 18 Rate Blood Pressure 99/66 107/72 107/72 O2 Sat by Pulse 96 95 97 Oximetry 05/27/19 05/27/19 05/27/19 01:51 02:00 02:11 Temperature Pulse Rate 66 67 68 Respiratory 17 21 23 Rate Blood Pressure 104/74 98/68 98/68 O2 Sat by Pulse 97 98 98 Oximetry 05/27/19 05/27/19 05/27/19 02:21 02:30 02:41 Temperature Pulse Rate 69 65 64 Respiratory 21 28 H 20 Rate Blood Pressure 103/70 116/76 116/76 O2 Sat by Pulse 98 99 100 Oximetry 05/27/19 05/27/19 05/27/19 02:51 03:00 03:11 Temperature Pulse Rate 62 67 67 Respiratory 20 19 23 Rate Blood Pressure 116/80 102/71 102/71 O2 Sat by Pulse 100 100 100 Oximetry 05/27/19 05/27/19 05/27/19 03:21 03:30 03:41 Temperature Pulse Rate 62 64 67 Respiratory 15 24 22 Rate Blood Pressure 106/76 106/66 106/66 O2 Sat by Pulse 99 100 99 Oximetry 05/27/19 05/27/19 05/27/19 03:51 04:00 04:11 Temperature 98.9 F Pulse Rate 67 76 75 Respiratory 22 22 20 Rate Blood Pressure 101/66 114/79 114/79 O2 Sat by Pulse 100 100 100 Oximetry 05/27/19 05/27/19 05/27/19 04:21 04:31 04:41 Temperature Pulse Rate 74 79 87 Respiratory 26 H 22 18 Rate Blood Pressure 114/78 114/78 114/78 O2 Sat by Pulse 100 98 99 Oximetry 05/27/19 05/27/19 05/27/19 04:51 05:00 05:11 Temperature Pulse Rate 74 79 79 Respiratory 26 H 24 22 Rate Blood Pressure 115/78 107/70 114/78 O2 Sat by Pulse 97 99 97 Oximetry 05/27/19 05/27/19 05/27/19 05:21 05:30 05:41 Temperature Pulse Rate 74 73 69 Respiratory 22 26 H 20 Rate Blood Pressure 108/70 106/70 106/70 O2 Sat by Pulse 99 99 97 Oximetry 05/27/19 05/27/19 05/27/19 05:51 06:00 06:11 Temperature Pulse Rate 74 70 74 Respiratory 30 H 21 24 Rate Blood Pressure 104/69 109/69 109/69 O2 Sat by Pulse 99 100 99 Oximetry 05/27/19 05/27/19 05/27/19 06:21 06:30 06:41 Temperature Pulse Rate 71 82 72 Respiratory 31 H 33 H 21 Rate Blood Pressure 98/67 97/69 97/69 O2 Sat by Pulse 98 98 98 Oximetry 05/27/19 05/27/19 07:15 07:57 Temperature 98.8 F Pulse Rate Respiratory Rate Blood Pressure O2 Sat by Pulse 98 Oximetry CBC and BMP: 05/22/19 04:57 05/22/19 04:57 ABG, PT/INR, D-dimer: ABG ABG pH 7.531 pH Units (7.350-7.450) H 05/25/19 06:16 ABG pCO2 24.4 mm Hg 05/25/19 06:16 ABG pO2 199.7 mm Hg (80.0-90.0) H 05/25/19 06:16 ABG O2 Saturation 99.3 % (95.0-99.0) H 05/25/19 06:16 PT/INR, D-dimer D-Dimer 1505 ng/mlDDU (0-234) H 05/25/19 04:27 Abnormal lab findings: Abnormal Labs 05/21/19 05/21/19 05/21/19 00:23 00:23 00:23 MCV 98 H MCH 34 H Lymph % (Auto) 10.5 L [place] % (Auto) 7.8 H Lymph # 0.6 L Seg Neutrophils % 80.4 H D-Dimer 1113.40 H ABG pH ABG pO2 ABG O2 Saturation ABG Hemoglobin Sodium 129 L Chloride 94.0 L Glucose 123 H POC Glucose Calcium 8.0 L Ferritin AST 157 H ALT 62 H Lactate Dehydrogenase C-Reactive Protein 05/21/19 05/21/19 05/22/19 00:23 03:24 04:57 MCV 98 H MCH 33 H Lymph % (Auto) 10.4 L [place] % (Auto) Lymph # 0.5 L Seg Neutrophils % 84.0 H D-Dimer ABG pH ABG pO2 ABG O2 Saturation ABG Hemoglobin Sodium Chloride Glucose POC Glucose Calcium Ferritin 2304.0 H AST ALT Lactate Dehydrogenase 703 H C-Reactive Protein 6.10 H 05/22/19 05/23/19 05/23/19 04:57 04:07 04:07 MCV MCH Lymph % (Auto) [place] % (Auto) Lymph # Seg Neutrophils % D-Dimer 871.56 H ABG pH ABG pO2 ABG O2 Saturation ABG Hemoglobin Sodium 134 L Chloride Glucose 102 H POC Glucose Calcium 7.6 L Ferritin 2104.0 H AST ALT Lactate Dehydrogenase C-Reactive Protein 05/23/19 05/25/19 05/25/19 04:07 04:27 04:27 MCV MCH Lymph % (Auto) [place] % (Auto) Lymph # Seg Neutrophils % D-Dimer 1505 H ABG pH ABG pO2 ABG O2 Saturation ABG Hemoglobin Sodium Chloride Glucose POC Glucose Calcium Ferritin > 2000.0 H AST ALT Lactate Dehydrogenase 630 H C-Reactive Protein 11.30 H 05/25/19 05/25/19 05/25/19 04:27 06:16 08:36 MCV MCH Lymph % (Auto) [place] % (Auto) Lymph # Seg Neutrophils % D-Dimer ABG pH 7.531 H ABG pO2 199.7 H ABG O2 Saturation 99.3 H ABG Hemoglobin 12.9 L Sodium Chloride Glucose POC Glucose 108 H Calcium Ferritin AST ALT Lactate Dehydrogenase 708 H C-Reactive Protein 26.30 H 05/25/19 11:52 MCV MCH Lymph % (Auto) [place] % (Auto) Lymph # Seg Neutrophils % D-Dimer ABG pH ABG pO2 ABG O2 Saturation ABG Hemoglobin Sodium Chloride Glucose POC Glucose 143 H Calcium Ferritin AST ALT Lactate Dehydrogenase C-Reactive Protein
--- NOTE | 2019-05-27 10:45 | Progress Note ---
Assessment and Plan Cultures: 05/22/2019 Blood culture: negative Assessment: 48 years old male with no medical history, admitted on 05/20/2019 due to 3-day history of dry cough, subjective fever, and shortness of breath associated with dyspnea on exertion. Patient's tested positive for COVID last week: #Severe COVID pneumonia: CTA showed multifocal bilateral groundglass opacities. Transmission likely from home as is COVID positive. COVID test POSITIVE. Risk for ARDS is high given elevated inflammatory markers. Inflammatory markers are elevated. S/P 1 dose of Actemra on 05/26/2019. Completed 5 days of HCQ. #Acute hypoxic respiratory failure: on oxygen. Pulmonary following, considering mechanical ventilation. #Elevated LFTs: Likely from COVID #Diarrhea: Likely due to COVID, which is a pneumo-enteropathic virus. Recommendations: continue supportive care Ceftriaxone discontinued Reculture if fever >101.5F Will discuss with Dr. Donaldson about steroid trial for 3-5 days post Actemra Yaz Buchanan MD, FACP [facility] ([facility] C: [phone] O: [phone] F: [phone] Subjective Date of service: 05/27/19 Principal diagnosis: pneumonia, viral Interval history: No fever. Remains on oxygen, but being weaned. PUI?: Yes COVID19: Positive (Please see scanned reports) Objective - Exam Narrative Exam: Physical Exam (reviewed in chart due to PPE conservation) Constitutional: limited due to PPE conservation strategy Head, Ears, Nose: limited due to PPE conservation strategy Eyes: limited due to PPE conservation strategy Neck: limited due to PPE conservation strategy Oral: limited due to PPE conservation strategy Cardiovascular: limited due to PPE conservation strategy Respiratory: limited due to PPE conservation strategy GI: limited due to PPE conservation strategy Musculoskeletal: limited due to PPE conservation strategy Skin: limited due to PPE conservation strategy Hem/Lymphatic: limited due to PPE conservation strategy Psych: limited due to PPE conservation strategy Neurological: limited due to PPE conservation strategy - Constitutional Vitals: Vital Signs Temp Pulse Resp BP Pulse Ox 98.8 F 72 21 97/69 98 05/27/19 07:57 05/27/19 06:41 05/27/19 06:41 05/27/19 06:41 05/27/19 07:15 Temperature -Last 24 Hours Temperature 98.8 F Temperature 98.9 F Temperature 98.8 F Temperature 99.9 F Temperature 98.8 F Temperature 98.6 F Temperature 102.4 F - Labs CBC & Chem 7: 05/22/19 04:57 05/22/19 04:57
--- NOTE | 2019-05-27 13:35 | Progress Note ---
Assessment and Plan Severe COVID pneumonia: - CTA showed multifocal bilateral groundglass opacities. Risk for ARDS is high given elevated inflammatory markers. - s/p tocilizumab 400 mg x 1 - completed hydroxychloroquine - s/p ceftriaxone 2 gm IV q day Acute hypoxic respiratory failure: - on 100% FiO2. Pulmonary following, may need mechanical ventilation -Continue albuterol nebulizer per respiratory therapy protocol Sepsis, due to bilateral pneumonia with COVID. ID following, continue antibiotics Elevated LFT, likely due to sepsis from COVID Diarrhea, likely due to COVID, continue to monitor Hyponatremia, continue low volume IV fluid DVT prophylaxis, Lovenox Prognosis: Guarded Critical care time 25 minutes 05/25: Patient 100% FiO2 with nonrebreather. He is refusing/requesting to hold off for intubation. He was explained that this is an emergent situation and avoiding intubation could lead to cardiac arrest and also increase the risks of spread of the virus to multiple people if he has to get intubated during/following cardiac arrest. 05/26: Patient currently on 75% FiO2 with Vapotherm. Refusing elective intubation. Discussed with critical care attending will transfer him back to telemetry floor. Patient clinically remained critical with poor prognosis. Brief history: 48 years old male with no medical history, admitted on 05/20/2019 due to 3-day history of dry cough, subjective fever, and shortness of breath associated with dyspnea on exertion. Patient's tested positive for COVID last week: Physical exam: Gen: ill appearing, mild respiratory distress, Awake, Alert, Orientated HEENT: NCAT, EOMI, PERRL, OP Clear Neck: supple, no adenopathy, no thyromegaly, no JVD CVS/Heart: RRR, normal S1S2, pulses present bilaterally Chest/Lungs: diminished bs bilaterally Symmetrical chest expansion, good air entry bilaterally GI/Abdomen: soft, NTND, good bowel sounds, no guarding or rebound /Bladder: no suprapubic tenderness, no CVA or paraspinal tenderness Extermity/Skin: no c/c/e, no obvious rash MSK: FROM x 4 Neuro: CN 2-12 grossly intact, no new focal deficits Psych: calm Subjective Date of service: 05/27/19 Principal diagnosis: pneumonia, viral Interval history: Patient seen and examined. Medical records and medication list reviewed. No acute event overnight noted by the RN. Patient has significant difficulty breathing with 80-100% high flow O2 Discussed plan of care at bedside with patient. PUI?: Yes COVID19: Positive (Please see scanned reports) Objective - Constitutional Vitals: Vital Signs - 12hr 05/27/19 05/27/19 05/27/19 01:41 01:51 02:00 Temperature Pulse Rate 63 66 67 Respiratory 18 17 21 Rate Respiratory Rate [ Generalized] Blood Pressure 107/72 104/74 98/68 O2 Sat by Pulse 97 97 98 Oximetry 05/27/19 05/27/19 05/27/19 02:11 02:21 02:30 Temperature Pulse Rate 68 69 65 Respiratory 23 21 28 H Rate Respiratory Rate [ Generalized] Blood Pressure 98/68 103/70 116/76 O2 Sat by Pulse 98 98 99 Oximetry 05/27/19 05/27/19 05/27/19 02:41 02:51 03:00 Temperature Pulse Rate 64 62 67 Respiratory 20 20 19 Rate Respiratory Rate [ Generalized] Blood Pressure 116/76 116/80 102/71 O2 Sat by Pulse 100 100 100 Oximetry 05/27/19 05/27/19 05/27/19 03:11 03:21 03:30 Temperature Pulse Rate 67 62 64 Respiratory 23 15 24 Rate Respiratory Rate [ Generalized] Blood Pressure 102/71 106/76 106/66 O2 Sat by Pulse 100 99 100 Oximetry 05/27/19 05/27/19 05/27/19 03:41 03:51 04:00 Temperature 98.9 F Pulse Rate 67 67 76 Respiratory 22 22 22 Rate Respiratory Rate [ Generalized] Blood Pressure 106/66 101/66 114/79 O2 Sat by Pulse 99 100 100 Oximetry 05/27/19 05/27/19 05/27/19 04:11 04:21 04:31 Temperature Pulse Rate 75 74 79 Respiratory 20 26 H 22 Rate Respiratory Rate [ Generalized] Blood Pressure 114/79 114/78 114/78 O2 Sat by Pulse 100 100 98 Oximetry 05/27/19 05/27/19 05/27/19 04:41 04:51 05:00 Temperature Pulse Rate 87 74 79 Respiratory 18 26 H 24 Rate Respiratory Rate [ Generalized] Blood Pressure 114/78 115/78 107/70 O2 Sat by Pulse 99 97 99 Oximetry 04/15/20 04/15/20 04/15/20 05:11 05:21 05:30 Temperature Pulse Rate 79 74 73 Respiratory 22 22 26 H Rate Respiratory Rate [ Generalized] Blood Pressure 114/78 108/70 106/70 O2 Sat by Pulse 97 99 99 Oximetry 05/27/19 05/27/19 05/27/19 05:41 05:51 06:00 Temperature Pulse Rate 69 74 70 Respiratory 20 30 H 21 Rate Respiratory Rate [ Generalized] Blood Pressure 106/70 104/69 109/69 O2 Sat by Pulse 97 99 100 Oximetry 05/27/19 05/27/19 05/27/19 06:11 06:21 06:30 Temperature Pulse Rate 74 71 82 Respiratory 24 31 H 33 H Rate Respiratory Rate [ Generalized] Blood Pressure 109/69 98/67 97/69 O2 Sat by Pulse 99 98 98 Oximetry 05/27/19 05/27/19 05/27/19 06:41 06:45 07:00 Temperature Pulse Rate 72 71 79 Respiratory 21 31 H 36 H Rate Respiratory Rate [ Generalized] Blood Pressure 97/69 103/66 108/73 O2 Sat by Pulse 98 99 98 Oximetry 05/27/19 05/27/19 05/27/19 07:15 07:30 07:45 Temperature Pulse Rate 81 76 82 Respiratory 31 H 30 H 27 H Rate Respiratory Rate [ Generalized] Blood Pressure 105/68 103/69 100/64 O2 Sat by Pulse 95 96 99 Oximetry 05/27/19 05/27/19 05/27/19 07:57 08:00 08:15 Temperature 98.8 F Pulse Rate 80 82 Respiratory 35 H 31 H Rate Respiratory Rate [ Generalized] Blood Pressure 104/67 97/64 O2 Sat by Pulse 98 96 Oximetry 05/27/19 05/27/19 05/27/19 08:30 08:45 09:00 Temperature Pulse Rate 78 79 91 H Respiratory 27 H 35 H 20 Rate Respiratory Rate [ Generalized] Blood Pressure 92/59 101/65 96/66 O2 Sat by Pulse 95 97 90 Oximetry 05/27/19 05/27/19 05/27/19 09:15 09:30 09:45 Temperature Pulse Rate 88 89 84 Respiratory 20 33 H 33 H Rate Respiratory Rate [ Generalized] Blood Pressure 80/64 91/67 106/70 O2 Sat by Pulse 98 99 98 Oximetry 05/27/19 05/27/19 05/27/19 10:00 10:15 10:30 Temperature Pulse Rate 81 79 80 Respiratory 27 H 29 H 31 H Rate Respiratory 30 H Rate [ Generalized] Blood Pressure 105/69 100/69 106/72 O2 Sat by Pulse 99 97 97 Oximetry 05/27/19 05/27/19 05/27/19 10:45 11:00 11:15 Temperature Pulse Rate 83 86 86 Respiratory 30 H 25 H 30 H Rate Respiratory Rate [ Generalized] Blood Pressure 104/68 109/72 108/72 O2 Sat by Pulse 98 98 94 Oximetry 05/27/19 05/27/19 05/27/19 11:30 11:45 12:00 Temperature 98.9 F Pulse Rate 80 90 80 Respiratory 32 H 36 H Rate Respiratory Rate [ Generalized] Blood Pressure 103/67 102/75 O2 Sat by Pulse 99 93 Oximetry 05/27/19 12:01 Temperature Pulse Rate 98 H Respiratory 30 H Rate Respiratory Rate [ Generalized] Blood Pressure 98/54 O2 Sat by Pulse 91 Oximetry - Labs CBC & Chem 7: 05/22/19 04:57 05/22/19 04:57
[2019-05-27] MEDS: ACETAMINOPHEN 325 MG TAB PO PRN (21:06)
[2019-05-28 02:02] LABS: C-Reactive Protein 9.5 mg/dL (0.00-1.30)
[2019-05-28] MEDS: ENOXAPARIN 40 MG/0.4 ML INJ SUB-Q SCH (09:03)
[2019-05-28] MEDS: ASCORBIC ACID 500 MG TAB PO SCH ×2 (09:04→21:50)
--- NOTE | 2019-05-28 12:35 | Progress Note ---
Assessment and Plan Severe COVID pneumonia: - CTA showed multifocal bilateral groundglass opacities. Risk for ARDS is high given elevated inflammatory markers. - s/p tocilizumab 400 mg x 1 - completed hydroxychloroquine - s/p ceftriaxone 2 gm IV q day -Started on IV steroid from today Acute hypoxic respiratory failure: - on 100% FiO2 with 20 L oxygen per minute. Pulmonary following, patient refused elective mechanical ventilation -Continue albuterol nebulizer per respiratory therapy protocol Elevated d-dimer, weight based LMWH prophylaxis (0.5 mg/kg q12hrs of lovenox) Sepsis, due to bilateral pneumonia with COVID. ID following, continue anti biotics Elevated LFT, likely due to sepsis from COVID Diarrhea, likely due to COVID, continue to monitor Hyponatremia, continue low volume IV fluid DVT prophylaxis, Lovenox 0.5 mg/kg twice daily Prognosis: Guarded Critical care time 25 minutes 05/25: Patient 100% FiO2 with nonrebreather. He is refusing/requesting to hold off for intubation. He was explained that this is an emergent situation and avoiding intubation could lead to cardiac arrest and also increase the risks of spread of the virus to multiple people if he has to get intubated during/following cardiac arrest. 05/26: Patient currently on 75% FiO2 with Vapotherm. Refusing elective intubation. Discussed with critical care attending will transfer him back to telemetry floor. Patient clinically remained critical with poor prognosis. 05/27: Patient currently on 20 L O2 per minute. Started on steroids from today. ID following. Remains critically ill with poor prognosis. Brief history: 48 years old male with no medical history, admitted on 05/20/2019 due to 3-day history of dry cough, subjective fever, and shortness of breath associated with dyspnea on exertion. Patient's tested positive for COVID last week: Physical exam: Gen: ill appearing, mild respiratory distress, Awake, Alert, Orientated HEENT: NCAT, EOMI, PERRL, OP Clear Neck: supple, no adenopathy, no thyromegaly, no JVD CVS/Heart: RRR, normal S1S2, pulses present bilaterally Chest/Lungs: diminished bs bilaterally Symmetrical chest expansion GI/Abdomen: soft, NTND, good bowel sounds, no guarding or rebound /Bladder: no suprapubic tenderness, no CVA or paraspinal tenderness Extermity/Skin: no c/c/e, no obvious rash MSK: FROM x 4 Neuro: CN 2-12 grossly intact, no new focal deficits Psych: calm Subjective Date of service: 05/28/19 Principal diagnosis: pneumonia, viral Interval history: Patient seen and examined. Medical records and medication list reviewed. No acute event overnight noted by the RN. Patient on 20L/min O2 Discussed plan of care at bedside with patient. PUI?: Yes COVID19: Positive (Please see scanned reports) Objective - Constitutional Vitals: Vital Signs - 12hr 05/28/19 05/28/19 05/28/19 02:00 04:30 08:00 Temperature 98.4 F Pulse Rate 86 Respiratory 18 28 H Rate Blood Pressure 117/63 O2 Sat by Pulse 93 96 Oximetry 05/28/19 11:12 Temperature 99.0 F Pulse Rate 95 H Respiratory 22 Rate Blood Pressure 132/73 O2 Sat by Pulse 92 Oximetry - Labs CBC & Chem 7: 05/29/19 04:04 05/29/19 04:04 Labs: Abnormal lab results 05/28/19 05/28/19 05/28/19 Range/Units 00:13 00:13 00:13 D-Dimer > 35117 H (0-234) ng/mlDDU Ferritin 1790.0 H (13.0-400.0) ng/mL Lactate Dehydrogenase 630 H (91-180) units/L C-Reactive Protein 9.50 H (0.00-1.30) mg/dL
--- NOTE | 2019-05-28 12:51 | Progress Note ---
Assessment and Plan Cultures: 05/22/2019 Blood culture: negative Assessment: 48 years old male with no medical history, admitted on 05/20/2019 due to 3-day history of dry cough, subjective fever, and shortness of breath associated with dyspnea on exertion. Patient's tested positive for COVID last week: #Severe COVID pneumonia: CTA showed multifocal bilateral groundglass opacities. Transmission likely from home as is COVID positive. COVID test POSITIVE. Risk for ARDS is high given elevated inflammatory markers. Inflammatory markers are elevated. S/P 1 dose of Actemra on 05/26/2019. Completed 5 days of HCQ. #Acute hypoxic respiratory failure: on oxygen. Pulmonary following, considering mechanical ventilation. #Elevated LFTs: Likely from COVID #Diarrhea: Likely due to COVID, which is a pneumo-enteropathic virus. Recommendations: discussed with Dr. Donaldson about steroid trial for 3-5 days post Actemra Also, given significant d-dimer elevation, to consider weight based LMWH prophylaxis (0.5 mg/kg q12hrs of lovenox). This is based on autopsy studies showing peripheral thrombotic disease including microthrombi. continue supportive care Yaz Buchanan MD, FACP [facility] ([facility] C: [phone] O: [phone] F: [phone] Subjective Date of service: 05/28/19 Principal diagnosis: pneumonia, viral Interval history: No fever. Remains on oxygen. Moved out of ICU. PUI?: Yes COVID19: Positive (Please see scanned reports) Objective - Exam Narrative Exam: Physical Exam (reviewed in chart due to PPE conservation) Constitutional: limited due to PPE conservation strategy Head, Ears, Nose: limited due to PPE conservation strategy Eyes: limited due to PPE conservation strategy Neck: limited due to PPE conservation strategy Oral: limited due to PPE conservation strategy Cardiovascular: limited due to PPE conservation strategy Respiratory: limited due to PPE conservation strategy GI: limited due to PPE conservation strategy Musculoskeletal: limited due to PPE conservation strategy Skin: limited due to PPE conservation strategy Hem/Lymphatic: limited due to PPE conservation strategy Psych: limited due to PPE conservation strategy Neurological: limited due to PPE conservation strategy - Constitutional Vitals: Vital Signs Temp Pulse Resp BP Pulse Ox 99.0 F 95 H 22 132/73 92 05/28/19 11:12 04/16/20 11:12 05/28/19 11:12 05/28/19 11:12 05/28/19 11:12 Temperature -Last 24 Hours Temperature 99.0 F Temperature 98.4 F Temperature 97.5 F Temperature 98.3 F - Labs CBC & Chem 7: 05/22/19 04:57 05/22/19 04:57 Labs: Abnormal lab results 05/28/19 05/28/19 05/28/19 Range/Units 00:13 00:13 00:13 D-Dimer > 28876 H (0-234) ng/mlDDU Ferritin 1790.0 H (13.0-400.0) ng/mL Lactate Dehydrogenase 630 H (91-180) units/L C-Reactive Protein 9.50 H (0.00-1.30) mg/dL
--- NOTE | 2019-05-28 15:48 | Progress Note ---
Assessment and Plan 48 y/o male with close contact of COVID 19 patient admitted with hypoxemia and abnormal CXR/CT 1. Spoke with ID will put on weight based prophylactic dosing of Lovenox 2. Follow markers and ID recs. All better except D-Dimer 3. Hold on any lasix therapy 4. Patient really should be intubated but given his wishes will hold off for no w. Explained to him that in an emergent situation, not only is he put at risk but increasing the risk of spread of the virus to multiple people if he has to be intubated in a code situation. He expressed understanding. Spoke with who is going to speak with the patient about lying on his stomach and trying to help him cooperate with us. 5. Added IV steroids today to see if this will help with oxygenation. Very very guarded prognosis. Subjective Date of service: 05/28/19 Principal diagnosis: pneumonia, viral Interval history: Still on HFNC. Tolerated Actemra so far with no acute issues. PUI?: Yes COVID19: Positive (Please see scanned reports) Objective Vital Signs - 12hr 05/28/19 05/28/19 05/28/19 04:30 08:00 11:12 Temperature 98.4 F 99.0 F Pulse Rate 86 95 H Respiratory 18 28 H 22 Rate Blood Pressure 117/63 132/73 O2 Sat by Pulse 96 92 Oximetry CBC and BMP: 05/22/19 04:57 05/22/19 04:57 ABG, PT/INR, D-dimer: ABG ABG pH 7.531 pH Units (7.350-7.450) H 05/25/19 06:16 ABG pCO2 24.4 mm Hg 05/25/19 06:16 ABG pO2 199.7 mm Hg (80.0-90.0) H 05/25/19 06:16 ABG O2 Saturation 99.3 % (95.0-99.0) H 05/25/19 06:16 PT/INR, D-dimer D-Dimer > 51649 ng/mlDDU (0-234) H 05/28/19 00:13 Abnormal lab findings: Abnormal Labs 05/21/19 05/21/19 05/21/19 00:23 00:23 00:23 MCV 98 H MCH 34 H Lymph % (Auto) 10.5 L [place] % (Auto) 7.8 H Lymph # 0.6 L Seg Neutrophils % 80.4 H D-Dimer 1113.40 H ABG pH ABG pO2 ABG O2 Saturation ABG Hemoglobin Sodium 129 L Chloride 94.0 L Glucose 123 H POC Glucose Calcium 8.0 L Ferritin AST 157 H ALT 62 H Lactate Dehydrogenase C-Reactive Protein 05/21/19 05/21/19 05/22/19 00:23 03:24 04:57 MCV 98 H MCH 33 H Lymph % (Auto) 10.4 L [place] % (Auto) Lymph # 0.5 L Seg Neutrophils % 84.0 H D-Dimer ABG pH ABG pO2 ABG O2 Saturation ABG Hemoglobin Sodium Chloride Glucose POC Glucose Calcium Ferritin 2304.0 H AST ALT Lactate Dehydrogenase 703 H C-Reactive Protein 6.10 H 05/22/19 05/23/19 05/23/19 04:57 04:07 04:07 MCV MCH Lymph % (Auto) Darke % (Auto) Lymph # Seg Neutrophils % D-Dimer 871.56 H ABG pH ABG pO2 ABG O2 Saturation ABG Hemoglobin Sodium 134 L Chloride Glucose 102 H POC Glucose Calcium 7.6 L Ferritin 2104.0 H AST ALT Lactate Dehydrogenase C-Reactive Protein 05/23/19 05/25/19 05/25/19 04:07 04:27 04:27 MCV MCH Lymph % (Auto) Dar[place] % (Auto) Lymph # Seg Neutrophils % D-Dimer 1505 H ABG pH ABG pO2 ABG O2 Saturation ABG Hemoglobin Sodium Chloride Glucose POC Glucose Calcium Ferritin > 2000.0 H AST ALT Lactate Dehydrogenase 630 H C-Reactive Protein 11.30 H 05/25/19 05/25/19 05/25/19 04:27 06:16 08:36 MCV MCH Lymph % (Auto) [place] % (Auto) Lymph # Seg Neutrophils % D-Dimer ABG pH 7.531 H ABG pO2 199.7 H ABG O2 Saturation 99.3 H ABG Hemoglobin 12.9 L Sodium Chloride Glucose POC Glucose 108 H Calcium Ferritin AST ALT Lactate Dehydrogenase 708 H C-Reactive Protein 26.30 H 05/25/19 05/28/19 05/28/19 11:52 00:13 00:13 MCV MCH Lymph % (Auto) [place] % (Auto) Lymph # Seg Neutrophils % D-Dimer > 72520 H ABG pH ABG pO2 ABG O2 Saturation ABG Hemoglobin Sodium Chloride Glucose POC Glucose 143 H Calcium Ferritin 1790.0 H AST ALT Lactate Dehydrogenase C-Reactive Protein 05/28/19 00:13 MCV MCH Lymph % (Auto) [place] % (Auto) Lymph # Seg Neutrophils % D-Dimer ABG pH ABG pO2 ABG O2 Saturation ABG Hemoglobin Sodium Chloride Glucose POC Glucose Calcium Ferritin AST ALT Lactate Dehydrogenase 630 H C-Reactive Protein 9.50 H
[2019-05-28] MEDS: methylPREDNISolone Sod Succinate 40 MG/1 ML INJ IV SCH ×2 (21:50→21:52)
[2019-05-29 05:20] LABS: Hematocrit 39.6 % (35.5-45.6); Hemoglobin 13.6 gm/dl (11.8-15.2); Mean Corpuscular HGB Conc 34 % (32-34); Mean Corpuscular Volume 96 fl (84-94); Platelet Count 344 K/mm3 (140-440); Red Blood Count 4.11 M/mm3 (3.65-5.03); Red Cell Distribution Width 13.8 % (13.2-15.2)
[2019-05-29 05:43] LABS: BUN/Creatinine Ratio 19; Blood Urea Nitrogen 13 mg/dL (9-20); Calcium 8.2 mg/dL (8.4-10.2); Hemolysis Index 5
[2019-05-29] MEDS: methylPREDNISolone Sod Succinate 40 MG/1 ML INJ IV SCH (05:43)
[2019-05-29 06:31] LABS: Anisocytosis 1+; Basophils % (Manual) 0 % (0.0-1.8); Eosinophils % (Manual) 0 % (0.0-4.3); Macrocytosis 1+; Total Cells Counted 100
[2019-05-29 06:32] LABS: Platelet Estimate Consistent w Auto
[2019-05-29] MEDS: ASCORBIC ACID 500 MG TAB PO SCH ×2 (09:28→21:16)
[2019-05-29] MEDS: ENOXAPARIN 40 MG/0.4 ML INJ SUB-Q SCH (09:28)
--- NOTE | 2019-05-29 09:50 | Progress Note ---
Subjective Date of service: 05/29/19 Principal diagnosis: pneumonia, viral Interval history: No acute events. Still on 20 and 100%. Sat documented at 98. No fever. PUI?: Yes COVID19: Positive (Please see scanned reports) Objective Vital Signs - 12hr 05/28/19 05/29/19 05/29/19 22:34 02:36 05:01 Temperature 98.4 F Pulse Rate 85 Respiratory 18 Rate Blood Pressure 146/89 O2 Sat by Pulse 93 98 94 Oximetry 05/29/19 09:44 Temperature Pulse Rate Respiratory Rate Blood Pressure O2 Sat by Pulse 98 Oximetry CBC and BMP: 05/29/19 04:04 05/29/19 04:04 ABG, PT/INR, D-dimer: ABG ABG pH 7.531 pH Units (7.350-7.450) H 05/25/19 06:16 ABG pCO2 24.4 mm Hg 05/25/19 06:16 ABG pO2 199.7 mm Hg (80.0-90.0) H 05/25/19 06:16 ABG O2 Saturation 99.3 % (95.0-99.0) H 05/25/19 06:16 PT/INR, D-dimer D-Dimer > 62533 ng/mlDDU (0-234) H 05/28/19 00:13 Abnormal lab findings: Abnormal Labs 05/21/19 05/21/19 05/21/19 00:23 00:23 00:23 MCV 98 H MCH 34 H Lymph % (Auto) 10.5 L [place] % (Auto) 7.8 H Lymph # 0.6 L Seg Neutrophils % 80.4 H Seg Neuts % (Manual) Lymphocytes % (Manual) Lymphocytes # (Manual) D-Dimer 1113.40 H ABG pH ABG pO2 ABG O2 Saturation ABG Hemoglobin Sodium 129 L Chloride 94.0 L Carbon Dioxide Creatinine Glucose 123 H POC Glucose Calcium 8.0 L Ferritin AST 157 H ALT 62 H Lactate Dehydrogenase C-Reactive Protein 05/21/19 05/21/19 05/22/19 00:23 03:24 04:57 MCV 98 H MCH 33 H Lymph % (Auto) 10.4 L [place] % (Auto) Lymph # 0.5 L Seg Neutrophils % 84.0 H Seg Neuts % (Manual) Lymphocytes % (Manual) Lymphocytes # (Manual) D-Dimer ABG pH ABG pO2 ABG O2 Saturation ABG Hemoglobin Sodium Chloride Carbon Dioxide Creatinine Glucose POC Glucose Calcium Ferritin 2304.0 H AST ALT Lactate Dehydrogenase 703 H C-Reactive Protein 6.10 H 05/22/19 05/23/19 05/23/19 04:57 04:07 04:07 MCV MCH Lymph % (Auto) [place] % (Auto) Lymph # Seg Neutrophils % Seg Neuts % (Manual) Lymphocytes % (Manual) Lymphocytes # (Manual) D-Dimer 871.56 H ABG pH ABG pO2 ABG O2 Saturation ABG Hemoglobin Sodium 134 L Chloride Carbon Dioxide Creatinine Glucose 102 H POC Glucose Calcium 7.6 L Ferritin 2104.0 H AST ALT Lactate Dehydrogenase C-Reactive Protein 05/23/19 05/25/19 05/25/19 04:07 04:27 04:27 MCV MCH Lymph % (Auto) [place] % (Auto) Lymph # Seg Neutrophils % Seg Neuts % (Manual) Lymphocytes % (Manual) Lymphocytes # (Manual) D-Dimer 1505 H ABG pH ABG pO2 ABG O2 Saturation ABG Hemoglobin Sodium Chloride Carbon Dioxide Creatinine Glucose POC Glucose Calcium Ferritin > 2000.0 H AST ALT Lactate Dehydrogenase 630 H C-Reactive Protein 11.30 H 05/25/19 05/25/19 05/25/19 04:27 06:16 08:36 MCV MCH Lymph % (Auto) [place] % (Auto) Lymph # Seg Neutrophils % Seg Neuts % (Manual) Lymphocytes % (Manual) Lymphocytes # (Manual) D-Dimer ABG pH 7.531 H ABG pO2 199.7 H ABG O2 Saturation 99.3 H ABG Hemoglobin 12.9 L Sodium Chloride Carbon Dioxide Creatinine Glucose POC Glucose 108 H Calcium Ferritin AST ALT Lactate Dehydrogenase 708 H C-Reactive Protein 26.30 H 05/25/19 05/28/19 05/28/19 11:52 00:13 00:13 MCV MCH Lymph % (Auto) [place] % (Auto) Lymph # Seg Neutrophils % Seg Neuts % (Manual) Lymphocytes % (Manual) Lymphocytes # (Manual) D-Dimer > 89064 H ABG pH ABG pO2 ABG O2 Saturation ABG Hemoglobin Sodium Chloride Carbon Dioxide Creatinine Glucose POC Glucose 143 H Calcium Ferritin 1790.0 H AST ALT Lactate Dehydrogenase C-Reactive Protein 05/28/19 05/29/19 05/29/19 00:13 04:04 04:04 MCV 96 H MCH 33 H Lymph % (Auto) [place] % (Auto) Lymph # Seg Neutrophils % Seg Neuts % (Manual) 95.0 H Lymphocytes % (Manual) 2.0 L Lymphocytes # (Manual) 0.1 L D-Dimer ABG pH ABG pO2 ABG O2 Saturation ABG Hemoglobin Sodium Chloride Carbon Dioxide 21 L Creatinine 0.7 L Glucose 148 H POC Glucose Calcium 8.2 L Ferritin AST ALT Lactate Dehydrogenase 630 H C-Reactive Protein 9.50 H
--- NOTE | 2019-05-29 10:41 | Progress Note ---
Assessment and Plan Cultures: 05/22/2019 Blood culture: negative Assessment: 48 years old male with no medical history, admitted on 05/20/2019 due to 3-day history of dry cough, subjective fever, and shortness of breath associated with dyspnea on exertion. Patient's tested positive for COVID last week: #Severe COVID pneumonia: CTA showed multifocal bilateral groundglass opacities. Transmission likely from home as is COVID positive. COVID test POSITIVE. Risk for ARDS is high given elevated inflammatory markers. Inflammatory markers are elevated. S/P 1 dose of Actemra on 05/26/2019. Completed 5 days of HCQ. #Acute hypoxic respiratory failure: on oxygen. Pulmonary following, considering mechanical ventilation. #Elevated LFTs: Likely from COVID #Diarrhea: Likely due to COVID, which is a pneumo-enteropathic virus. Recommendations: short steroid trial for 3-5 days post Actemra (day 2 today) Also, given significant d-dimer elevation, weight based LMWH prophylaxis (0.5 mg/kg q12hrs of lovenox). continue supportive care and self proning to help with hypoxia Yaz Buchanan MD, FACP [facility] ([facility] C: [phone] O: [phone] F: [phone] Subjective Date of service: 05/29/19 Principal diagnosis: pneumonia, viral Interval history: No fever. Oxygen sats good, hopes to wean from high flow. PUI?: Yes COVID19: Positive (Please see scanned reports) Objective - Exam Narrative Exam: Physical Exam (reviewed in chart due to PPE conservation) Constitutional: limited due to PPE conservation strategy Head, Ears, Nose: limited due to PPE conservation strategy Eyes: limited due to PPE conservation strategy Neck: limited due to PPE conservation strategy Oral: limited due to PPE conservation strategy Cardiovascular: limited due to PPE conservation strategy Respiratory: limited due to PPE conservation strategy GI: limited due to PPE conservation strategy Musculoskeletal: limited due to PPE conservation strategy Skin: limited due to PPE conservation strategy Hem/Lymphatic: limited due to PPE conservation strategy Psych: limited due to PPE conservation strategy Neurological: limited due to PPE conservation strategy - Constitutional Vitals: Vital Signs Temp Pulse Resp BP Pulse Ox 98.4 F 85 18 146/89 98 05/29/19 05:01 05/29/19 05:01 05/29/19 05:01 05/29/19 05:01 05/29/19 09:44 Temperature -Last 24 Hours Temperature 98.4 F Temperature 98.9 F Temperature 98.6 F Temperature 99.0 F - Labs CBC & Chem 7: 05/29/19 04:04 05/29/19 04:04 Labs: Abnormal lab results 05/29/19 05/29/19 Range/Units 04:04 04:04 MCV 96 H (84-94) fl MCH 33 H (28-32) pg Seg Neuts % (Manual) 95.0 H (40.0-70.0) % Lymphocytes % (Manual) 2.0 L (13.4-35.0) % Lymphocytes # (Manual) 0.1 L (1.2-5.4) K/mm3 Carbon Dioxide 21 L (22-30) mmol/L Creatinine 0.7 L (0.8-1.5) mg/dL Glucose 148 H (75-100) mg/dL Calcium 8.2 L (8.4-10.2) mg/dL
--- NOTE | 2019-05-29 12:09 | Progress Note ---
Assessment and Plan Severe COVID pneumonia: - CTA showed multifocal bilateral groundglass opacities. Risk for ARDS is high given elevated inflammatory markers. - s/p tocilizumab 400 mg x 1 - completed hydroxychloroquine - s/p ceftriaxone 2 gm IV q day -Started on IV steroid - day 2 Acute hypoxic respiratory failure: - on 100% FiO2 with 20 L oxygen per minute. Pulmonary following, patient refused elective mechanical ventilation -Continue albuterol nebulizer per respiratory therapy protocol Elevated d-dimer, weight based LMWH prophylaxis (0.5 mg/kg q12hrs of lovenox) Sepsis, due to bilateral pneumonia with COVID. ID following, continue antibio tics Elevated LFT, likely due to sepsis from COVID Diarrhea, likely due to COVID, continue to monitor Hyponatremia, continue low volume IV fluid DVT prophylaxis, Lovenox 0.5 mg/kg twice daily Prognosis: Guarded Critical care time 25 minutes 05/25: Patient 100% FiO2 with nonrebreather. He is refusing/requesting to hold off for intubation. He was explained that this is an emergent situation and avoiding intubation could lead to cardiac arrest and also increase the risks of spread of the virus to multiple people if he has to get intubated during/following cardiac arrest. 05/26: Patient currently on 75% FiO2 with Vapotherm. Refusing elective intubation. Discussed with critical care attending will transfer him back to telemetry floor. Patient clinically remained critical with poor prognosis. 05/27: Patient currently on 20 L O2 per minute. Started on steroids from today. ID following. Remains critically ill with poor prognosis. 05/28: Patient currently on 20 L O2 per minute. on steroids day 2. ID following. Remains critically ill with poor prognosis. Updated Brief history: 48 years old male with no medical history, admitted on 05/20/2019 due to 3-day history of dry cough, subjective fever, and shortness of breath associated with dyspnea on exertion. Patient's tested positive for COVID last week before his admission to hospital: Physical exam: Gen: ill appearing, mild respiratory distress, Awake, Alert, Orientated HEENT: NCAT, EOMI, PERRL, OP Clear Neck: supple, no adenopathy, no thyromegaly, no JVD CVS/Heart: RRR, normal S1S2, pulses present bilaterally Chest/Lungs: diminished bs bilaterally Symmetrical chest expansion GI/Abdomen: soft, NTND, good bowel sounds, no guarding or rebound /Bladder: no suprapubic tenderness, no CVA or paraspinal tenderness Extermity/Skin: no c/c/e, no obvious rash MSK: FROM x 4 Neuro: CN 2-12 grossly intact, no new focal deficits Psych: calm Subjective Date of service: 05/29/19 Principal diagnosis: pneumonia, viral Interval history: Patient seen and examined. Medical records and medication list reviewed. No acute event overnight noted by the RN. Patient remains on 20L/min O2 Discussed plan of care at bedside with patient. called his today - updated PUI?: Yes COVID19: Positive (Please see scanned reports) Objective - Constitutional Vitals: Vital Signs - 12hr 05/29/19 05/29/19 05/29/19 02:36 05:01 09:44 Temperature 98.4 F Pulse Rate 85 Respiratory 18 Rate Blood Pressure 146/89 O2 Sat by Pulse 98 94 98 Oximetry - Labs CBC & Chem 7: 05/29/19 04:04 05/29/19 04:04 Labs: Abnormal lab results 05/29/19 05/29/19 Range/Units 04:04 04:04 MCV 96 H (84-94) fl MCH 33 H (28-32) pg Seg Neuts % (Manual) 95.0 H (40.0-70.0) % Lymphocytes % (Manual) 2.0 L (13.4-35.0) % Lymphocytes # (Manual) 0.1 L (1.2-5.4) K/mm3 Carbon Dioxide 21 L (22-30) mmol/L Creatinine 0.7 L (0.8-1.5) mg/dL Glucose 148 H (75-100) mg/dL Calcium 8.2 L (8.4-10.2) mg/dL
[2019-05-29] MEDS ORDERED: ENOXAPARIN 40 MG/0.4 ML INJ SUB-Q SCH (22:00)
[2019-05-30] MEDS ORDERED: SODIUM CHLORIDE 0.9% 500 ML 500 ML IV ONE (06:04)
[2019-05-30] MEDS ORDERED: SODIUM CHLORIDE 0.9% IRR 500 ML BOTTLE IR ONE (06:15)
[2019-05-30] MEDS: methylPREDNISolone Sod Succinate 40 MG/1 ML INJ IV SCH ×3 (06:16→21:12)
[2019-05-30] MEDS: ASCORBIC ACID 500 MG TAB PO SCH ×2 (09:29→21:12)
[2019-05-30] MEDS: ENOXAPARIN 40 MG/0.4 ML INJ SUB-Q SCH ×2 (10:17→21:11)
--- NOTE | 2019-05-30 10:39 | Progress Note ---
Assessment and Plan Severe COVID pneumonia: - CTA showed multifocal bilateral groundglass opacities. Risk for ARDS is high given elevated inflammatory markers. - s/p tocilizumab 400 mg x 1 - completed hydroxychloroquine - s/p ceftriaxone 2 gm IV q day -Started on IV steroid - day 2 Acute hypoxic respiratory failure: - on 100% FiO2 with 20 L oxygen per minute. Pulmonary following, patient refused elective mechanical ventilation -Continue albuterol nebulizer per respiratory therapy protocol Elevated d-dimer, weight based LMWH prophylaxis (0.5 mg/kg q12hrs of lovenox) Sepsis, due to bilateral pneumonia with COVID. ID following, continue antibio tics Elevated LFT, likely due to sepsis from COVID Diarrhea, likely due to COVID, continue to monitor Hyponatremia, continue low volume IV fluid DVT prophylaxis, Lovenox 0.5 mg/kg twice daily Prognosis: Guarded 05/25: Patient 100% FiO2 with nonrebreather. He is refusing/requesting to hold off for intubation. He was explained that this is an emergent situation and avoiding intubation could lead to cardiac arrest and also increase the risks of spread of the virus to multiple people if he has to get intubated during/following cardiac arrest. 05/26: Patient currently on 75% FiO2 with Vapotherm. Refusing elective intubation. Discussed with critical care attending will transfer him back to telemetry floor. Patient clinically remained critical with poor prognosis. 05/27: Patient currently on 20 L O2 per minute. Started on steroids from today. ID following. Remains critically ill with poor prognosis. 05/28: Patient currently on 20 L O2 per minute. on steroids day 2. ID fol lowing. Remains critically ill with poor prognosis. Updated 05/29: Patient currently on 20 L O2 per minute. on steroids day 3. ID following. Remains critically ill with poor prognosis. Brief history: 48 years old male with no medical history, admitted on 05/20/2019 due to 3-day history of dry cough, subjective fever, and shortness of breath associated with dyspnea on exertion. Patient's tested positive for COVID last week before his admission to hospital: Physical exam: Gen: ill appearing, mild respiratory distress, Awake, Alert, Orientated HEENT: NCAT, EOMI, PERRL, OP Clear Neck: supple, no adenopathy, no thyromegaly, no JVD CVS/Heart: RRR, normal S1S2, pulses present bilaterally Chest/Lungs: diminished bs bilaterally Symmetrical chest expansion GI/Abdomen: soft, NTND, good bowel sounds, no guarding or rebound /Bladder: no suprapubic tenderness, no CVA or paraspinal tenderness Extermity/Skin: no c/c/e, no obvious rash MSK: FROM x 4 Neuro: CN 2-12 grossly intact, no new focal deficits Psych: calm Subjective Date of service: 05/30/19 Principal diagnosis: pneumonia, viral Interval history: Patient seen and examined. Medical records and medication list reviewed. No acute event overnight noted by the RN. Patient remains on 20L/min O2, tolerating diet Discussed plan of care at bedside with patient. Objective - Constitutional Vitals: Vital Signs - 12hr 05/30/19 05/30/19 05/30/19 02:00 05:39 08:26 Respiratory 20 Rate Blood Pressure 92/57 O2 Sat by Pulse 95 96 Oximetry - Labs CBC & Chem 7: 05/29/19 04:04 05/29/19 04:04 Labs: Abnormal lab results 05/30/19 05/30/19 Range/Units 08:36 08:36 Ferritin 5198.0 H (13.0-400.0) ng/mL Lactate Dehydrogenase 960 H (91-180) units/L
--- NOTE | 2019-05-30 11:28 | Progress Note ---
Assessment and Plan - Patient Problems (1) COVID-19 virus vaccination declined Current Visit: Yes Status: Acute (2) Cough Current Visit: Yes Status: Acute (3) Fever Current Visit: Yes Status: Acute Qualifiers: Fever type: unspecified Qualified Code(s): R50.9 - Fever, unspecified (4) Hypoxia Current Visit: Yes Status: Acute (5) Pneumonia Current Visit: Yes Status: Acute Qualifiers: Pneumonia type: due to unspecified organism Laterality: bilateral Lung location: unspecified part of lung Qualified Code(s): J18.9 - Pneumonia, unspe cified organism Subjective Principal diagnosis: pneumonia, viral Interval history: still sob persistent cough episode of hypotension earlier today responded to fluid bolus pt doesnt want to do prone positioning Objective Vital Signs - 12hr 05/30/19 05/30/19 05/30/19 02:00 05:39 08:26 Respiratory 20 Rate Blood Pressure 92/57 O2 Sat by Pulse 95 96 Oximetry 05/30/19 10:00 Respiratory Rate Blood Pressure O2 Sat by Pulse 96 Oximetry Constitutional: no acute distress, other (on [place]) ENT: oropharynx moist Neck: supple Ascultation: Bilateral: diminished breath sounds Cardiovascular: regular rate and rhythm Gastrointestinal: normoactive bowel sounds, soft, non-tender CBC and BMP: 05/29/19 04:04 05/29/19 04:04 ABG, PT/INR, D-dimer: ABG ABG pH 7.531 pH Units (7.350-7.450) H 05/25/19 06:16 ABG pCO2 24.4 mm Hg 05/25/19 06:16 ABG pO2 199.7 mm Hg (80.0-90.0) H 05/25/19 06:16 ABG O2 Saturation 99.3 % (95.0-99.0) H 05/25/19 06:16 PT/INR, D-dimer D-Dimer > 93212 ng/mlDDU (0-234) H 05/30/19 08:36 Abnormal lab findings: Abnormal Labs 05/21/19 05/21/19 05/21/19 00:23 00:23 00:23 MCV 98 H MCH 34 H Lymph % (Auto) 10.5 L [place] % (Auto) 7.8 H Lymph # 0.6 L Seg Neutrophils % 80.4 H Seg Neuts % (Manual) Lymphocytes % (Manual) Lymphocytes # (Manual) D-Dimer 1113.40 H ABG pH ABG pO2 ABG O2 Saturation ABG Hemoglobin Sodium 129 L Chloride 94.0 L Carbon Dioxide Creatinine Glucose 123 H POC Glucose Calcium 8.0 L Ferritin AST 157 H ALT 62 H Lactate Dehydrogenase C-Reactive Protein 05/21/19 05/21/19 05/22/19 00:23 03:24 04:57 MCV 98 H MCH 33 H Lymph % (Auto) 10.4 L [place] % (Auto) Lymph # 0.5 L Seg Neutrophils % 84.0 H Seg Neuts % (Manual) Lymphocytes % (Manual) Lymphocytes # (Manual) D-Dimer ABG pH ABG pO2 ABG O2 Saturation ABG Hemoglobin Sodium Chloride Carbon Dioxide Creatinine Glucose POC Glucose Calcium Ferritin 2304.0 H AST ALT Lactate Dehydrogenase 703 H C-Reactive Protein 6.10 H 05/22/19 05/23/19 05/23/19 04:57 04:07 04:07 MCV MCH Lymph % (Auto) [place] % (Auto) Lymph # Seg Neutrophils % Seg Neuts % (Manual) Lymphocytes % (Manual) Lymphocytes # (Manual) D-Dimer 871.56 H ABG pH ABG pO2 ABG O2 Saturation ABG Hemoglobin Sodium 134 L Chloride Carbon Dioxide Creatinine Glucose 102 H POC Glucose Calcium 7.6 L Ferritin 2104.0 H AST ALT Lactate Dehydrogenase C-Reactive Protein 05/23/19 05/25/19 05/25/19 04:07 04:27 04:27 MCV MCH Lymph % (Auto) [place] % (Auto) Lymph # Seg Neutrophils % Seg Neuts % (Manual) Lymphocytes % (Manual) Lymphocytes # (Manual) D-Dimer 1505 H ABG pH ABG pO2 ABG O2 Saturation ABG Hemoglobin Sodium Chloride Carbon Dioxide Creatinine Glucose POC Glucose Calcium Ferritin > 2000.0 H AST ALT Lactate Dehydrogenase 630 H C-Reactive Protein 11.30 H 05/25/19 05/25/19 05/25/19 04:27 06:16 08:36 MCV MCH Lymph % (Auto) [place] % (Auto) Lymph # Seg Neutrophils % Seg Neuts % (Manual) Lymphocytes % (Manual) Lymphocytes # (Manual) D-Dimer ABG pH 7.531 H ABG pO2 199.7 H ABG O2 Saturation 99.3 H ABG Hemoglobin 12.9 L Sodium Chloride Carbon Dioxide Creatinine Glucose POC Glucose 108 H Calcium Ferritin AST ALT Lactate Dehydrogenase 708 H C-Reactive Protein 26.30 H 05/25/19 05/28/19 05/28/19 11:52 00:13 00:13 MCV MCH Lymph % (Auto) [place] % (Auto) Lymph # Seg Neutrophils % Seg Neuts % (Manual) Lymphocytes % (Manual) Lymphocytes # (Manual) D-Dimer > 30912 H ABG pH ABG pO2 ABG O2 Saturation ABG Hemoglobin Sodium Chloride Carbon Dioxide Creatinine Glucose POC Glucose 143 H Calcium Ferritin 1790.0 H AST ALT Lactate Dehydrogenase C-Reactive Protein 05/28/19 05/29/19 05/29/19 00:13 04:04 04:04 MCV 96 H MCH 33 H Lymph % (Auto) [place] % (Auto) Lymph # Seg Neutrophils % Seg Neuts % (Manual) 95.0 H Lymphocytes % (Manual) 2.0 L Lymphocytes # (Manual) 0.1 L D-Dimer ABG pH ABG pO2 ABG O2 Saturation ABG Hemoglobin Sodium Chloride Carbon Dioxide 21 L Creatinine 0.7 L Glucose 148 H POC Glucose Calcium 8.2 L Ferritin AST ALT Lactate Dehydrogenase 630 H C-Reactive Protein 9.50 H 05/30/19 05/30/19 05/30/19 08:36 08:36 08:36 MCV MCH Lymph % (Auto) [place] % (Auto) Lymph # Seg Neutrophils % Seg Neuts % (Manual) Lymphocytes % (Manual) Lymphocytes # (Manual) D-Dimer > 58731 H ABG pH ABG pO2 ABG O2 Saturation ABG Hemoglobin Sodium Chloride Carbon Dioxide Creatinine Glucose POC Glucose Calcium Ferritin 5198.0 H AST ALT Lactate Dehydrogenase 960 H C-Reactive Protein
[2019-05-31] MEDS: methylPREDNISolone Sod Succinate 40 MG/1 ML INJ IV SCH ×5 (05:17→21:54)
[2019-05-31] MEDS: ASCORBIC ACID 500 MG TAB PO SCH ×2 (09:46→21:55)
[2019-05-31] MEDS: ENOXAPARIN 40 MG/0.4 ML INJ SUB-Q SCH ×2 (09:46→21:54)
--- NOTE | 2019-05-31 11:17 | Progress Note ---
Assessment and Plan - Patient Problems (1) COVID-19 virus vaccination declined Current Visit: Yes Status: Acute (2) Cough Current Visit: Yes Status: Acute (3) Fever Current Visit: Yes Status: Acute Qualifiers: Fever type: unspecified Qualified Code(s): R50.9 - Fever, unspecified (4) Hypoxia Current Visit: Yes Status: Acute (5) Pneumonia Current Visit: Yes Status: Acute Qualifiers: Pneumonia type: due to unspecified organism Laterality: bilateral Lung location: unspecified part of lung Qualified Code(s): J18.9 - Pneumonia, unspe cified organism Subjective Principal diagnosis: pneumonia, viral Interval history: still w cough feels better Objective Vital Signs - 12hr 05/31/19 05/31/19 05/31/19 02:34 05:17 08:46 Temperature 98.6 F Pulse Rate 84 Respiratory 20 Rate Blood Pressure 112/63 O2 Sat by Pulse 97 98 95 Oximetry Constitutional: no acute distress, other (on [place]) ENT: oropharynx moist Neck: supple Ascultation: Bilateral: diminished breath sounds, rhonchi Cardiovascular: regular rate and rhythm Gastrointestinal: normoactive bowel sounds, soft, non-tender CBC and BMP: 05/29/19 04:04 05/29/19 04:04 ABG, PT/INR, D-dimer: ABG ABG pH 7.531 pH Units (7.350-7.450) H 05/25/19 06:16 ABG pCO2 24.4 mm Hg 05/25/19 06:16 ABG pO2 199.7 mm Hg (80.0-90.0) H 05/25/19 06:16 ABG O2 Saturation 99.3 % (95.0-99.0) H 05/25/19 06:16 PT/INR, D-dimer D-Dimer > 99959 ng/mlDDU (0-234) H 05/30/19 08:36 Abnormal lab findings: Abnormal Labs 05/21/19 05/21/19 05/21/19 00:23 00:23 00:23 MCV 98 H MCH 34 H Lymph % (Auto) 10.5 L [place] % (Auto) 7.8 H Lymph # 0.6 L Seg Neutrophils % 80.4 H Seg Neuts % (Manual) Lymphocytes % (Manual) Lymphocytes # (Manual) D-Dimer 1113.40 H ABG pH ABG pO2 ABG O2 Saturation ABG Hemoglobin Sodium 129 L Chloride 94.0 L Carbon Dioxide Creatinine Glucose 123 H POC Glucose Calcium 8.0 L Ferritin AST 157 H ALT 62 H Lactate Dehydrogenase C-Reactive Protein 05/21/19 05/21/19 05/22/19 00:23 03:24 04:57 MCV 98 H MCH 33 H Lymph % (Auto) 10.4 L [place] % (Auto) Lymph # 0.5 L Seg Neutrophils % 84.0 H Seg Neuts % (Manual) Lymphocytes % (Manual) Lymphocytes # (Manual) D-Dimer ABG pH ABG pO2 ABG O2 Saturation ABG Hemoglobin Sodium Chloride Carbon Dioxide Creatinine Glucose POC Glucose Calcium Ferritin 2304.0 H AST ALT Lactate Dehydrogenase 703 H C-Reactive Protein 6.10 H 05/22/19 05/23/19 05/23/19 04:57 04:07 04:07 MCV MCH Lymph % (Auto) [place] % (Auto) Lymph # Seg Neutrophils % Seg Neuts % (Manual) Lymphocytes % (Manual) Lymphocytes # (Manual) D-Dimer 871.56 H ABG pH ABG pO2 ABG O2 Saturation ABG Hemoglobin Sodium 134 L Chloride Carbon Dioxide Creatinine Glucose 102 H POC Glucose Calcium 7.6 L Ferritin 2104.0 H AST ALT Lactate Dehydrogenase C-Reactive Protein 05/23/19 05/25/19 05/25/19 04:07 04:27 04:27 MCV MCH Lymph % (Auto) [place] % (Auto) Lymph # Seg Neutrophils % Seg Neuts % (Manual) Lymphocytes % (Manual) Lymphocytes # (Manual) D-Dimer 1505 H ABG pH ABG pO2 ABG O2 Saturation ABG Hemoglobin Sodium Chloride Carbon Dioxide Creatinine Glucose POC Glucose Calcium Ferritin > 2000.0 H AST ALT Lactate Dehydrogenase 630 H C-Reactive Protein 11.30 H 05/25/19 05/25/19 05/25/19 04:27 06:16 08:36 MCV MCH Lymph % (Auto) [place] % (Auto) Lymph # Seg Neutrophils % Seg Neuts % (Manual) Lymphocytes % (Manual) Lymphocytes # (Manual) D-Dimer ABG pH 7.531 H ABG pO2 199.7 H ABG O2 Saturation 99.3 H ABG Hemoglobin 12.9 L Sodium Chloride Carbon Dioxide Creatinine Glucose POC Glucose 108 H Calcium Ferritin AST ALT Lactate Dehydrogenase 708 H C-Reactive Protein 26.30 H 05/25/19 05/28/19 05/28/19 11:52 00:13 00:13 MCV MCH Lymph % (Auto) [place] % (Auto) Lymph # Seg Neutrophils % Seg Neuts % (Manual) Lymphocytes % (Manual) Lymphocytes # (Manual) D-Dimer > 92862 H ABG pH ABG pO2 ABG O2 Saturation ABG Hemoglobin Sodium Chloride Carbon Dioxide Creatinine Glucose POC Glucose 143 H Calcium Ferritin 1790.0 H AST ALT Lactate Dehydrogenase C-Reactive Protein 05/28/19 05/29/19 05/29/19 00:13 04:04 04:04 MCV 96 H MCH 33 H Lymph % (Auto) [place] % (Auto) Lymph # Seg Neutrophils % Seg Neuts % (Manual) 95.0 H Lymphocytes % (Manual) 2.0 L Lymphocytes # (Manual) 0.1 L D-Dimer ABG pH ABG pO2 ABG O2 Saturation ABG Hemoglobin Sodium Chloride Carbon Dioxide 21 L Creatinine 0.7 L Glucose 148 H POC Glucose Calcium 8.2 L Ferritin AST ALT Lactate Dehydrogenase 630 H C-Reactive Protein 9.50 H 05/30/19 05/30/19 05/30/19 08:36 08:36 08:36 MCV MCH Lymph % (Auto) [place] % (Auto) Lymph # Seg Neutrophils % Seg Neuts % (Manual) Lymphocytes % (Manual) Lymphocytes # (Manual) D-Dimer > 80668 H ABG pH ABG pO2 ABG O2 Saturation ABG Hemoglobin Sodium Chloride Carbon Dioxide Creatinine Glucose POC Glucose Calcium Ferritin 5198.0 H AST ALT Lactate Dehydrogenase 960 H C-Reactive Protein
--- NOTE | 2019-05-31 11:35 | Progress Note ---
Assessment and Plan Severe COVID pneumonia: - CTA showed multifocal bilateral groundglass opacities. Risk for ARDS is high given elevated inflammatory markers. - s/p tocilizumab 400 mg x 1 - completed hydroxychloroquine - s/p ceftriaxone 2 gm IV q day -Started on IV steroid Acute hypoxic respiratory failure: - on 100% FiO2 with 20 L oxygen per minute. Pulmonary following, patient refused elective mechanical ventilation -Continue albuterol nebulizer per respiratory therapy protocol Elevated d-dimer, weight based LMWH prophylaxis (0.5 mg/kg q12hrs of lovenox) Sepsis, due to bilateral pneumonia with COVID. ID following, continue antibiotics Elevated LFT, likely due to sepsis from COVID Diarrhea, likely due to COVID, continue to monitor Hyponatremia, continue low volume IV fluid DVT prophylaxis, Lovenox 0.5 mg/kg twice daily Prognosis: Guarded 05/25: Patient 100% FiO2 with nonrebreather. He is refusing/requesting to hold off for intubation. He was explained that this is an emergent situation and avoiding intubation could lead to cardiac arrest and also increase the risks of spread of the virus to multiple people if he has to get intubated during/following cardiac arrest. 05/26: Patient currently on 75% FiO2 with Vapotherm. Refusing elective intubation. Discussed with critical care attending will transfer him back to t elemetry floor. Patient clinically remained critical with poor prognosis. 05/27: Patient currently on 20 L O2 per minute. Started on steroids from today. ID following. Remains critically ill with poor prognosis. 05/28: Patient currently on 20 L O2 per minute. on steroids day 2. ID following. Remains critically ill with poor prognosis. Updated 05/29: Patient currently on 20 L O2 per minute. on steroids day 3. ID following. Remains critically ill with poor prognosis. 05/30: Patient currently on 20 L O2 per minute. on steroids day 3. ID following. Remains critically ill with poor prognosis. inflammatory markers trending up. Brief history: 48 years old male with no medical history, admitted on 05/20/2019 due to 3-day history of dry cough, subjective fever, and shortness of breath associated with dyspnea on exertion. Patient's tested positive for COVID last week before his admission to hospital: Physical exam: Gen: ill appearing, mild respiratory distress, Awake, Alert, Orientated HEENT: NCAT, EOMI, PERRL, OP Clear Neck: supple, no adenopathy, no thyromegaly, no JVD CVS/Heart: RRR, normal S1S2, pulses present bilaterally Chest/Lungs: diminished bs bilaterally Symmetrical chest expansion GI/Abdomen: soft, NTND, good bowel sounds, no guarding or rebound /Bladder: no suprapubic tenderness, no CVA or paraspinal tenderness Extermity/Skin: no c/c/e, no obvious rash MSK: FROM x 4 Neuro: CN 2-12 grossly intact, no new focal deficits Psych: calm Subjective Date of service: 05/31/19 Principal diagnosis: pneumonia, viral Interval history: Patient seen and examined. Medical records and medication list reviewed. No acute event overnight noted by the RN. Patient remains on 20L/min O2, tolerating diet Discussed plan of care at bedside with patient. Objective - Constitutional Vitals: Vital Signs - 12hr 05/31/19 05/31/19 05/31/19 02:34 05:17 08:46 Temperature 98.6 F Pulse Rate 84 Respiratory 20 Rate Blood Pressure 112/63 O2 Sat by Pulse 97 98 95 Oximetry - Labs CBC & Chem 7: 05/29/19 04:04 05/29/19 04:04
--- NOTE | 2019-05-31 14:17 | Progress Note ---
Assessment and Plan Cultures: 05/22/2019 Blood culture: negative Assessment: 48 years old male with no medical history, admitted on 05/20/2019 due to 3-day history of dry cough, subjective fever, and shortness of breath associated with dyspnea on exertion. Patient's tested positive for COVID last week: #Severe COVID pneumonia: CTA showed multifocal bilateral groundglass opacities. Transmission likely from home as is COVID positive. COVID test POSITIVE. Risk for ARDS is high given elevated inflammatory markers. Inflammatory markers are elevated. S/P 1 dose of Actemra on 05/26/2019. Completed 5 days of HCQ. #Acute hypoxic respiratory failure: on oxygen. Pulmonary following, hoping to avoid mechanical ventilation. Remains on high flow. #Elevated LFTs: Likely from COVID #Diarrhea: Likely due to COVID. Resolved. Recommendations: short steroid trial for 3-5 days post Actemra (day 4 today) continue weight based LMWH prophylaxis (0.5 mg/kg q12 hrs of lovenox). continue supportive care and self proning to help with hypoxia Yaz Buchanan MD, FACP [facility] ([facility] C: [phone] O: [phone] F: [phone] Subjective Date of service: 05/31/19 Principal diagnosis: pneumonia, viral Interval history: No fever. Remains on oxygen. Objective - Exam Narrative Exam: Physical Exam (reviewed in chart due to PPE conservation) Constitutional: limited due to PPE conservation strategy Head, Ears, Nose: limited due to PPE conservation strategy Eyes: limited due to PPE conservation strategy Neck: limited due to PPE conservation strategy Oral: limited due to PPE conservation strategy Cardiovascular: limited due to PPE conservation strategy Respiratory: limited due to PPE conservation strategy GI: limited due to PPE conservation strategy Musculoskeletal: limited due to PPE conservation strategy Skin: limited due to PPE conservation strategy Hem/Lymphatic: limited due to PPE conservation strategy Psych: limited due to PPE conservation strategy Neurological: limited due to PPE conservation strategy - Constitutional Vitals: Vital Signs Temp Pulse Resp BP Pulse Ox 98.3 F 83 24 109/74 95 05/31/19 11:31 05/31/19 11:31 05/31/19 11:31 05/31/19 11:31 05/31/19 13:15 Temperature -Last 24 Hours Temperature 98.3 F Temperature 98.6 F Temperature 98.4 F Temperature 98.1 F - Labs CBC & Chem 7: 05/29/19 04:04 05/29/19 04:04
[2019-06-01 02:00] LABS: C-Reactive Protein 0.5 mg/dL (0.00-1.30)
--- NOTE | 2019-06-01 08:51 | Progress Note ---
Assessment and Plan Severe COVID pneumonia: - CTA showed multifocal bilateral groundglass opacities. Risk for ARDS is high given elevated inflammatory markers. - s/p tocilizumab 400 mg x 1 - completed hydroxychloroquine - s/p ceftriaxone 2 gm IV q day -Started on IV steroid for total 5 days Acute hypoxic respiratory failure: - on 100% FiO2 with 20 L oxygen per minute. Pulmonary following, patient refused elective mechanical ventilation -Continue albuterol nebulizer per respiratory therapy protocol Elevated d-dimer, weight based LMWH prophylaxis (0.5 mg/kg q12hrs of lovenox) Sepsis, due to bilateral pneumonia with COVID. ID following, continue antibiotics Elevated LFT, likely due to sepsis from COVID Diarrhea, likely due to COVID, continue to monitor Hyponatremia, continue low volume IV fluid DVT prophylaxis, Lovenox 0.5 mg/kg twice daily Prognosis: Guarded 05/25: Patient 100% FiO2 with nonrebreather. He is refusing/requesting to hold off for intubation. He was explained that this is an emergent situation and avoiding intubation could lead to cardiac arrest and also increase the risks of spread of the virus to multiple people if he has to get intubated during/following cardiac arrest. 05/26: Patient currently on 75% FiO2 with Vapotherm. Refusing elective intubation. Discussed with critical care attending will transfer him back to telemetry floor. Patient clinically remained critical with poor prognosis. 05/27: Patient currently on 20 L O2 per minute. Started on steroids from today. ID following. Remains critically ill with poor prognosis. 05/28: Patient currently on 20 L O2 per minute. on steroids day 2. ID following. Remains critically ill with poor prognosis. Updated 05/29: Patient currently on 20 L O2 per minute. on steroids day 3. ID following. Remains critically ill with poor prognosis. 05/30: Patient currently on 20 L O2 per minute. on steroids day 4. ID following. Remains critically ill with poor prognosis. inflammatory markers trending up. 05/31: Patient currently weaned off to 3L O2 per minute. stop steroid today. ID following. inflammatory markers improving. if clinically stable possible d/c tomorrow Brief history: 48 years old male with no medical history, admitted on 05/20/2019 due to 3-day history of dry cough, subjective fever, and shortness of breath associated with dyspnea on exertion. Patient's tested positive for COVID last week before his admission to hospital: Physical exam: Gen: ill appearing, mild respiratory distress, Awake, Alert, Orientated HEENT: NCAT, EOMI, PERRL, OP Clear Neck: supple, no adenopathy, no thyromegaly, no JVD CVS/Heart: RRR, normal S1S2, pulses present bilaterally Chest/Lungs: diminished bs bilaterally Symmetrical chest expansion GI/Abdomen: soft, NTND, good bowel sounds, no guarding or rebound /Bladder: no suprapubic tenderness, no CVA or paraspinal tenderness Extermity/Skin: no c/c/e, no obvious rash MSK: FROM x 4 Neuro: CN 2-12 grossly intact, no new focal deficits Psych: calm Subjective Date of service: 06/01/19 Principal diagnosis: pneumonia, viral Interval history: Patient seen and examined. Medical records and medication list reviewed. No acute event overnight noted by the RN. Patient on 3L/min O2, tolerating diet Discussed plan of care at bedside with patient. Objective - Constitutional Vitals: Vital Signs - 12hr 05/31/19 06/01/19 06/01/19 22:18 02:22 04:58 Temperature 98.1 F 98.6 F Pulse Rate 88 78 Respiratory 26 H 22 Rate Blood Pressure 121/84 117/72 O2 Sat by Pulse 98 100 97 Oximetry 06/01/19 08:00 Temperature Pulse Rate Respiratory Rate Blood Pressure O2 Sat by Pulse 94 Oximetry - Labs CBC & Chem 7: 05/29/19 04:04 05/29/19 04:04 Labs: Abnormal lab results 06/01/19 06/01/19 06/01/19 Range/Units 00:18 00:18 00:18 D-Dimer 8006.44 H (0-234) ng/mlDDU Ferritin > 2000.0 H (13.0-400.0) ng/mL Lactate Dehydrogenase 510 H (91-180) units/L
[2019-06-01] MEDS: ENOXAPARIN 40 MG/0.4 ML INJ SUB-Q SCH ×2 (10:41→22:42)
[2019-06-01] MEDS: ASCORBIC ACID 500 MG TAB PO SCH ×2 (10:41→22:42)
--- NOTE | 2019-06-01 12:29 | Progress Note ---
Assessment and Plan 48 y/o male with close contact of COVID 19 patient admitted with hypoxemia and abnormal CXR/CT 1. Continue weight based prophylactic therapy. 2. Continue steroids through 06/03 3. Hold on any lasix therapy 4. Patient's oxygen requirements have improved with Actemra, steroids, weight based lovenox therapy and proning when patient would do this. 5. Will continue to follow Very very guarded prognosis. Subjective Date of service: 06/01/19 Principal diagnosis: pneumonia, viral Interval history: No acute events. Changed to 5 liters NC with sats of 94%. Objective Vital Signs - 12hr 06/01/19 06/01/19 06/01/19 02:22 04:58 08:00 Temperature 98.6 F Pulse Rate 78 Respiratory 22 Rate Blood Pressure 117/72 O2 Sat by Pulse 100 97 94 Oximetry 06/01/19 06/01/19 09:25 11:47 Temperature 98.2 F Pulse Rate 86 Respiratory 24 Rate Blood Pressure 104/63 O2 Sat by Pulse 94 93 Oximetry Constitutional: no acute distress, other (on [place]) ENT: oropharynx moist Neck: supple Ascultation: Bilateral: diminished breath sounds, rhonchi Cardiovascular: regular rate and rhythm Gastrointestinal: normoactive bowel sounds, soft, non-tender CBC and BMP: 05/29/19 04:04 05/29/19 04:04 ABG, PT/INR, D-dimer: ABG ABG pH 7.531 pH Units (7.350-7.450) H 05/25/19 06:16 ABG pCO2 24.4 mm Hg 05/25/19 06:16 ABG pO2 199.7 mm Hg (80.0-90.0) H 05/25/19 06:16 ABG O2 Saturation 99.3 % (95.0-99.0) H 05/25/19 06:16 PT/INR, D-dimer D-Dimer 8006.44 ng/mlDDU (0-234) H 06/01/19 00:18 Abnormal lab findings: Abnormal Labs 05/21/19 05/21/19 05/21/19 00:23 00:23 00:23 MCV 98 H MCH 34 H Lymph % (Auto) 10.5 L [place] % (Auto) 7.8 H Lymph # 0.6 L Seg Neutrophils % 80.4 H Seg Neuts % (Manual) Lymphocytes % (Manual) Lymphocytes # (Manual) D-Dimer 1113.40 H ABG pH ABG pO2 ABG O2 Saturation ABG Hemoglobin Sodium 129 L Chloride 94.0 L Carbon Dioxide Creatinine Glucose 123 H POC Glucose Calcium 8.0 L Ferritin AST 157 H ALT 62 H Lactate Dehydrogenase C-Reactive Protein 05/21/19 05/21/19 05/22/19 00:23 03:24 04:57 MCV 98 H MCH 33 H Lymph % (Auto) 10.4 L [place] % (Auto) Lymph # 0.5 L Seg Neutrophils % 84.0 H Seg Neuts % (Manual) Lymphocytes % (Manual) Lymphocytes # (Manual) D-Dimer ABG pH ABG pO2 ABG O2 Saturation ABG Hemoglobin Sodium Chloride Carbon Dioxide Creatinine Glucose POC Glucose Calcium Ferritin 2304.0 H AST ALT Lactate Dehydrogenase 703 H C-Reactive Protein 6.10 H 05/22/19 05/23/19 05/23/19 04:57 04:07 04:07 MCV MCH Lymph % (Auto) [place] % (Auto) Lymph # Seg Neutrophils % Seg Neuts % (Manual) Lymphocytes % (Manual) Lymphocytes # (Manual) D-Dimer 871.56 H ABG pH ABG pO2 ABG O2 Saturation ABG Hemoglobin Sodium 134 L Chloride Carbon Dioxide Creatinine Glucose 102 H POC Glucose Calcium 7.6 L Ferritin 2104.0 H AST ALT Lactate Dehydrogenase C-Reactive Protein 05/23/19 05/25/19 05/25/19 04:07 04:27 04:27 MCV MCH Lymph % (Auto) [place] % (Auto) Lymph # Seg Neutrophils % Seg Neuts % (Manual) Lymphocytes % (Manual) Lymphocytes # (Manual) D-Dimer 1505 H ABG pH ABG pO2 ABG O2 Saturation ABG Hemoglobin Sodium Chloride Carbon Dioxide Creatinine Glucose POC Glucose Calcium Ferritin > 2000.0 H AST ALT Lactate Dehydrogenase 630 H C-Reactive Protein 11.30 H 05/25/19 05/25/19 05/25/19 04:27 06:16 08:36 MCV MCH Lymph % (Auto) [place] % (Auto) Lymph # Seg Neutrophils % Seg Neuts % (Manual) Lymphocytes % (Manual) Lymphocytes # (Manual) D-Dimer ABG pH 7.531 H ABG pO2 199.7 H ABG O2 Saturation 99.3 H ABG Hemoglobin 12.9 L Sodium Chloride Carbon Dioxide Creatinine Glucose POC Glucose 108 H Calcium Ferritin AST ALT Lactate Dehydrogenase 708 H C-Reactive Protein 26.30 H 05/25/19 05/28/19 05/28/19 11:52 00:13 00:13 MCV MCH Lymph % (Auto) [place] % (Auto) Lymph # Seg Neutrophils % Seg Neuts % (Manual) Lymphocytes % (Manual) Lymphocytes # (Manual) D-Dimer > 43347 H ABG pH ABG pO2 ABG O2 Saturation ABG Hemoglobin Sodium Chloride Carbon Dioxide Creatinine Glucose POC Glucose 143 H Calcium Ferritin 1790.0 H AST ALT Lactate Dehydrogenase C-Reactive Protein 05/28/19 05/29/19 05/29/19 00:13 04:04 04:04 MCV 96 H MCH 33 H Lymph % (Auto) [place] % (Auto) Lymph # Seg Neutrophils % Seg Neuts % (Manual) 95.0 H Lymphocytes % (Manual) 2.0 L Lymphocytes # (Manual) 0.1 L D-Dimer ABG pH ABG pO2 ABG O2 Saturation ABG Hemoglobin Sodium Chloride Carbon Dioxide 21 L Creatinine 0.7 L Glucose 148 H POC Glucose Calcium 8.2 L Ferritin AST ALT Lactate Dehydrogenase 630 H C-Reactive Protein 9.50 H 05/30/19 05/30/19 05/30/19 08:36 08:36 08:36 MCV MCH Lymph % (Auto) [place] % (Auto) Lymph # Seg Neutrophils % Seg Neuts % (Manual) Lymphocytes % (Manual) Lymphocytes # (Manual) D-Dimer > 52950 H ABG pH ABG pO2 ABG O2 Saturation ABG Hemoglobin Sodium Chloride Carbon Dioxide Creatinine Glucose POC Glucose Calcium Ferritin 5198.0 H AST ALT Lactate Dehydrogenase 960 H C-Reactive Protein 06/01/19 06/01/19 06/01/19 00:18 00:18 00:18 MCV MCH Lymph % (Auto) [place] % (Auto) Lymph # Seg Neutrophils % Seg Neuts % (Manual) Lymphocytes % (Manual) Lymphocytes # (Manual) D-Dimer 8006.44 H ABG pH ABG pO2 ABG O2 Saturation ABG Hemoglobin Sodium Chloride Carbon Dioxide Creatinine Glucose POC Glucose Calcium Ferritin > 2000.0 H AST ALT Lactate Dehydrogenase 510 H C-Reactive Protein
--- NOTE | 2019-06-01 12:45 | Progress Note ---
Assessment and Plan Cultures: 05/22/2019 Blood culture: negative Assessment: 48 years old male with no medical history, admitted on 05/20/2019 due to 3-day history of dry cough, subjective fever, and shortness of breath associated with dyspnea on exertion. Patient's tested positive for COVID last week: #Severe COVID pneumonia: CTA showed multifocal bilateral groundglass opacities. Transmission likely from home as is COVID positive. COVID test POSITIVE. Risk for ARDS is high given elevated inflammatory markers. Inflammatory markers are elevated. S/P 1 dose of Actemra on 05/26/2019. Completed 5 days of HCQ. #Acute hypoxic respiratory failure: on oxygen. Pulmonary following, hoping to avoid mechanical ventilation. Remains on high flow. #Elevated LFTs: Likely from COVID #Diarrhea: Likely due to COVID. Resolved. Recommendations: short steroid trial for 3-5 days post Actemra (day 5 today), taper continue weight based LMWH prophylaxis (0.5 mg/kg q12 hrs of lovenox) continue supportive care and self proning to help with hypoxia Yaz Buchanan MD, FACP [facility] ([facility] C: [phone] O: [phone] F: [phone] Subjective Date of service: 06/01/19 Principal diagnosis: pneumonia, viral Interval history: No fever. Remains on oxygen but being weaned. Objective - Exam Narrative Exam: Physical Exam (reviewed in chart due to PPE conservation) Constitutional: limited due to PPE conservation strategy Head, Ears, Nose: limited due to PPE conservation strategy Eyes: limited due to PPE conservation strategy Neck: limited due to PPE conservation strategy Oral: limited due to PPE conservation strategy Cardiovascular: limited due to PPE conservation strategy Respiratory: limited due to PPE conservation strategy GI: limited due to PPE conservation strategy Musculoskeletal: limited due to PPE conservation strategy Skin: limited due to PPE conservation strategy Hem/Lymphatic: limited due to PPE conservation strategy Psych: limited due to PPE conservation strategy Neurological: limited due to PPE conservation strategy - Constitutional Vitals: Vital Signs Temp Pulse Resp BP Pulse Ox 98.2 F 86 24 104/63 93 06/01/19 11:47 06/01/19 11:47 06/01/19 11:47 06/01/19 11:47 06/01/19 11:47 Temperature -Last 24 Hours Temperature 98.2 F Temperature 98.6 F Temperature 98.1 F Temperature 98.5 F - Labs CBC & Chem 7: 05/29/19 04:04 05/29/19 04:04 Labs: Abnormal lab results 06/01/19 06/01/19 06/01/19 Range/Units 00:18 00:18 00:18 D-Dimer 8006.44 H (0-234) ng/mlDDU Ferritin > 2000.0 H (13.0-400.0) ng/mL Lactate Dehydrogenase 510 H (91-180) units/L
[2019-06-01] MEDS: methylPREDNISolone Sod Succinate 40 MG/1 ML INJ IV SCH (17:39)
[2019-06-01] MEDS ORDERED: methylPREDNISolone Sod Succinate 40 MG/1 ML INJ IV SCH (22:00)
[2019-06-02] MEDS: ASCORBIC ACID 500 MG TAB PO SCH (09:03)
[2019-06-02] MEDS: ENOXAPARIN 40 MG/0.4 ML INJ SUB-Q SCH (09:03)
--- NOTE | 2019-06-02 11:15 | Discharge Summary ---
Providers - Providers Date of Admission: 05/21/19 04:32 Date of discharge: 06/02/19 Attending physician: DON ALEJANDRO 05/21/19 00:55 Consult to Physician [CONS] Routine Comment: Dr. Barragan spoke with Dr. Carroll @ 0056 Consulting Provider: HYUN CAMPOS Physician Instructions: Reason For Exam: sob. fever. poss covid 05/21/19 08:25 Consult to Physician [CONS] Routine Comment: Consulting Provider: LIZ LOPEZ Physician Instructions: Reason For Exam: hypoxic PUI COVID patient Primary care physician: INTAKE NURSE Hospitalization Condition: Critical Hospital course: 48 years old male with no medical history, admitted on 05/20/2019 due to 3-day history of dry cough, subjective fever, and shortness of breath associated with dyspnea on exertion. Patient's tested positive for COVID last week before his admission to hospital. Patient was placed on high flow O2, COVID-19 test came positive, he was initially given IV Rocephin then hydroxychloroquine started and completed the course. Patient was receiving 100% FiO2 and oxygenation was still challenging, pulmonary recommended for elective intubation before he goes for cardiorespiratory arrest. Patient refused intubation and wanted to be managed with high flow O2. He was given tocilizumab 400 mg x 1 . His inflammatory markers were monitored, his oxygen requirement slowly trended down. He was able to weaned off from ventilator oxygen per minute to 3 L O2 per minute. Ambulatory and exercise oxygen requirement was checked, home O2 was arranged and patient was discharged home in stable condition with outpatient follow-up. Discharge diagnosis and management: Severe COVID pneumonia: - CTA showed multifocal bilateral groundglass opacities. Risk for ARDS is high given elevated inflammatory markers. - s/p tocilizumab 400 mg x 1 - completed hydroxychloroquine - s/p ceftriaxone 2 gm IV q day -Started on IV steroid for total 5 days Acute hypoxic respiratory failure: Improved -s/p 100% FiO2 with 20 L oxygen per minute. Pulmonary following, patient refused elective mechanical ventilation -Continued albuterol nebulizer per respiratory therapy protocol Elevated d-dimer, placed on weight based LMWH prophylaxis (0.5 mg/kg q12hrs of lovenox) Sepsis, due to bilateral pneumonia with COVID. ID following, treated with Plaquenil and tocilizumab 400 mg x 1 Elevated LFT, likely due to sepsis from COVID Diarrhea, likely due to COVID, continue to monitor Hyponatremia, continue low volume IV fluid DVT prophylaxis, Lovenox 0.5 mg/kg twice daily Disposition: Home with home health Physical exam: Gen: nick respiratory distress, Awake, Alert, Orientated HEENT: NCAT, EOMI, PERRL, OP Clear Neck: supple, no adenopathy, no thyromegaly, no JVD CVS/Heart: RRR, normal S1S2, pulses present bilaterally Chest/Lungs: diminished bs bilaterally Symmetrical chest expansion GI/Abdomen: soft, NTND, good bowel sounds, no guarding or rebound /Bladder: no suprapubic tenderness, no CVA or paraspinal tenderness Extermity/Skin: no c/c/e, no obvious rash MSK: FROM x 4 Neuro: CN 2-12 grossly intact, no new focal deficits Psych: calm Disposition: DC/[place]-06 HOME UNDER [facility] Time spent for discharge: 34 minutes Core Measure Documentation - Palliative Care Palliative Care/ Comfort Measures: Not Applicable - Core Measures Any of the following diagnoses?: none Exam - Constitutional Vitals: Temp Pulse Resp BP Pulse Ox 98.4 F 84 24 111/73 93 06/02/19 05:21 06/02/19 05:21 06/02/19 05:21 06/02/19 05:21 06/02/19 08:00 Plan Activity: advance as tolerated Weight Bearing Status: Weight Bear as Tolerated Diet: low fat Special Instructions: home oxygen via (3L) Follow up with: KRISTEL VEAR MD [Primary Care Provider] - 3-5 Days UCHE SOUSA MD [Staff Physician] - 7 Days Prescriptions: Albuterol Sulfate [Proair Digihaler] 90 mcg IH Q6H PRN #1 [email or web address] PRN Reason: Shortness Of Breath
--- NOTE | 2019-06-02 12:26 | Progress Note ---
Assessment and Plan 48 y/o male with close contact of COVID 19 patient admitted with hypoxemia and abnormal CXR/CT 1. Would ask ID about continuation of prophylactic therapy. Likely not needed. 2. Continue steroids through 06/03. Since being discharged the equivalent is 120 of Prednisone daily. This could be divided up BID or TID 3. Will need walk test prior to discharge. Patient is unfunded, hopefully he will not need oxygen. Subjective Date of service: 06/02/19 Principal diagnosis: pneumonia, viral Interval history: No acute events. Being discharged today. Objective Vital Signs - 12hr 06/02/19 06/02/19 05:21 08:00 Temperature 98.4 F Pulse Rate 84 Respiratory 24 Rate Blood Pressure 111/73 O2 Sat by Pulse 96 93 Oximetry Constitutional: no acute distress, other (on [place]) ENT: oropharynx moist Neck: supple Ascultation: Bilateral: diminished breath sounds, rhonchi Cardiovascular: regular rate and rhythm Gastrointestinal: normoactive bowel sounds, soft, non-tender CBC and BMP: 05/29/19 04:04 05/29/19 04:04 ABG, PT/INR, D-dimer: ABG ABG pH 7.531 pH Units (7.350-7.450) H 05/25/19 06:16 ABG pCO2 24.4 mm Hg 05/25/19 06:16 ABG pO2 199.7 mm Hg (80.0-90.0) H 05/25/19 06:16 ABG O2 Saturation 99.3 % (95.0-99.0) H 05/25/19 06:16 PT/INR, D-dimer D-Dimer 8006.44 ng/mlDDU (0-234) H 06/01/19 00:18 Abnormal lab findings: Abnormal Labs 05/21/19 05/21/19 05/21/19 00:23 00:23 00:23 MCV 98 H MCH 34 H Lymph % (Auto) 10.5 L [place] % (Auto) 7.8 H Lymph # 0.6 L Seg Neutrophils % 80.4 H Seg Neuts % (Manual) Lymphocytes % (Manual) Lymphocytes # (Manual) D-Dimer 1113.40 H ABG pH ABG pO2 ABG O2 Saturation ABG Hemoglobin Sodium 129 L Chloride 94.0 L Carbon Dioxide Creatinine Glucose 123 H POC Glucose Calcium 8.0 L Ferritin AST 157 H ALT 62 H Lactate Dehydrogenase C-Reactive Protein 05/21/19 05/21/19 05/22/19 00:23 03:24 04:57 MCV 98 H MCH 33 H Lymph % (Auto) 10.4 L [place] % (Auto) Lymph # 0.5 L Seg Neutrophils % 84.0 H Seg Neuts % (Manual) Lymphocytes % (Manual) Lymphocytes # (Manual) D-Dimer ABG pH ABG pO2 ABG O2 Saturation ABG Hemoglobin Sodium Chloride Carbon Dioxide Creatinine Glucose POC Glucose Calcium Ferritin 2304.0 H AST ALT Lactate Dehydrogenase 703 H C-Reactive Protein 6.10 H 05/22/19 05/23/19 05/23/19 04:57 04:07 04:07 MCV MCH Lymph % (Auto) [place] % (Auto) Lymph # Seg Neutrophils % Seg Neuts % (Manual) Lymphocytes % (Manual) Lymphocytes # (Manual) D-Dimer 871.56 H ABG pH ABG pO2 ABG O2 Saturation ABG Hemoglobin Sodium 134 L Chloride Carbon Dioxide Creatinine Glucose 102 H POC Glucose Calcium 7.6 L Ferritin 2104.0 H AST ALT Lactate Dehydrogenase C-Reactive Protein 05/23/19 05/25/19 05/25/19 04:07 04:27 04:27 MCV MCH Lymph % (Auto) [place] % (Auto) Lymph # Seg Neutrophils % Seg Neuts % (Manual) Lymphocytes % (Manual) Lymphocytes # (Manual) D-Dimer 1505 H ABG pH ABG pO2 ABG O2 Saturation ABG Hemoglobin Sodium Chloride Carbon Dioxide Creatinine Glucose POC Glucose Calcium Ferritin > 2000.0 H AST ALT Lactate Dehydrogenase 630 H C-Reactive Protein 11.30 H 05/25/19 05/25/19 05/25/19 04:27 06:16 08:36 MCV MCH Lymph % (Auto) [place] % (Auto) Lymph # Seg Neutrophils % Seg Neuts % (Manual) Lymphocytes % (Manual) Lymphocytes # (Manual) D-Dimer ABG pH 7.531 H ABG pO2 199.7 H ABG O2 Saturation 99.3 H ABG Hemoglobin 12.9 L Sodium Chloride Carbon Dioxide Creatinine Glucose POC Glucose 108 H Calcium Ferritin AST ALT Lactate Dehydrogenase 708 H C-Reactive Protein 26.30 H 05/25/19 05/28/19 05/28/19 11:52 00:13 00:13 MCV MCH Lymph % (Auto) [place] % (Auto) Lymph # Seg Neutrophils % Seg Neuts % (Manual) Lymphocytes % (Manual) Lymphocytes # (Manual) D-Dimer > 22225 H ABG pH ABG pO2 ABG O2 Saturation ABG Hemoglobin Sodium Chloride Carbon Dioxide Creatinine Glucose POC Glucose 143 H Calcium Ferritin 1790.0 H AST ALT Lactate Dehydrogenase C-Reactive Protein 05/28/19 05/29/19 05/29/19 00:13 04:04 04:04 MCV 96 H MCH 33 H Lymph % (Auto) [place] % (Auto) Lymph # Seg Neutrophils % Seg Neuts % (Manual) 95.0 H Lymphocytes % (Manual) 2.0 L Lymphocytes # (Manual) 0.1 L D-Dimer ABG pH ABG pO2 ABG O2 Saturation ABG Hemoglobin Sodium Chloride Carbon Dioxide 21 L Creatinine 0.7 L Glucose 148 H POC Glucose Calcium 8.2 L Ferritin AST ALT Lactate Dehydrogenase 630 H C-Reactive Protein 9.50 H 05/30/19 05/30/19 05/30/19 08:36 08:36 08:36 MCV MCH Lymph % (Auto) [place] % (Auto) Lymph # Seg Neutrophils % Seg Neuts % (Manual) Lymphocytes % (Manual) Lymphocytes # (Manual) D-Dimer > 08151 H ABG pH ABG pO2 ABG O2 Saturation ABG Hemoglobin Sodium Chloride Carbon Dioxide Creatinine Glucose POC Glucose Calcium Ferritin 5198.0 H AST ALT Lactate Dehydrogenase 960 H C-Reactive Protein 06/01/19 06/01/19 06/01/19 00:18 00:18 00:18 MCV MCH Lymph % (Auto) [place] % (Auto) Lymph # Seg Neutrophils % Seg Neuts % (Manual) Lymphocytes % (Manual) Lymphocytes # (Manual) D-Dimer 8006.44 H ABG pH ABG pO2 ABG O2 Saturation ABG Hemoglobin Sodium Chloride Carbon Dioxide Creatinine Glucose POC Glucose Calcium Ferritin > 2000.0 H AST ALT Lactate Dehydrogenase 510 H C-Reactive Protein
--- NOTE | 2019-06-02 15:23 | Progress Note ---
Assessment and Plan Cultures: 05/22/2019 Blood culture: negative Assessment: 48 years old male with no medical history, admitted on 05/20/2019 due to 3-day history of dry cough, subjective fever, and shortness of breath associated with dyspnea on exertion. Patient's tested positive for COVID last week: #Severe COVID pneumonia: CTA showed multifocal bilateral groundglass opacities. Transmission likely from home as is COVID positive. COVID test POSITIVE. Risk for ARDS is high given elevated inflammatory markers. Inflammatory markers are elevated. S/P 1 dose of Actemra on 05/26/2019. Completed 5 days of HCQ. #Acute hypoxic respiratory failure: on oxygen. Pulmonary following, hoping to avoid mechanical ventilation. Oxygen requirements downtrending. #Elevated LFTs: Likely from COVID #Diarrhea: Likely due to COVID. Resolved. Recommendations: continue steroid taper on discharge eval for home oxygen prior to discharge no need to continue anticoagulation at home if discharged Yaz Buchanan MD, FACP [facility] C: [phone] O: [phone] F: [phone] Subjective Date of service: 06/02/19 Principal diagnosis: pneumonia, viral Interval history: No fever. Remains on oxygen but being weaned, down to 3 liters. Objective - Exam Narrative Exam: Physical Exam (reviewed in chart due to PPE conservation) Constitutional: limited due to PPE conservation strategy Head, Ears, Nose: limited due to PPE conservation strategy Eyes: limited due to PPE conservation strategy Neck: limited due to PPE conservation strategy Oral: limited due to PPE conservation strategy Cardiovascular: limited due to PPE conservation strategy Respiratory: limited due to PPE conservation strategy GI: limited due to PPE conservation strategy Musculoskeletal: limited due to PPE conservation strategy Skin: limited due to PPE conservation strategy Hem/Lymphatic: limited due to PPE conservation strategy Psych: limited due to PPE conservation strategy Neurological: limited due to PPE conservation strategy - Constitutional Vitals: Vital Signs Temp Pulse Resp BP Pulse Ox 98.5 F 97 H 18 110/70 93 06/02/19 11:09 06/02/19 11:09 06/02/19 11:09 06/02/19 11:09 06/02/19 11:09 Temperature -Last 24 Hours Temperature 98.5 F Temperature 98.4 F Temperature 98.6 F Temperature 98.2 F - Labs CBC & Chem 7: 05/29/19 04:04 05/29/19 04:04
[2019-06-02 17:18] VITALS: BP 121/69
== END 2019-06-02 19:44 | disposition home or self-care (01) | DRG 177 ==
LOC: ED 23:43 → 3A 05-21 04:32 → CC1 05-25 15:06 → 3A 05-27 16:21
PROVIDERS: ADMIT Internal Medicine; ATTEND Internal Medicine
PROC: 4A033R1 Measurement of Arterial Saturation, Peripheral, Percutaneous Approach (ICD-10-PCS; principal; 2019-05-25)
DX: U07.1 COVID-19 (principal); A41.89 Other specified sepsis; J96.01 Acute respiratory failure with hypoxia; J12.89 Other viral pneumonia; E87.1 Hypo-osmolality and hyponatremia; Z82.49 Family history of ischemic heart disease and other diseases of the circulatory system
CPT/HCPCS: 36415; 36600; 71045; 71275; 80048; 80053; 80074; 82140; 82728; 82803; 82962; 83615; 84145; 85007; 85025; 85379; 86140; 87040; 87400; 93005; 93010; 94760; G0378; 87502; J0696; J1650; J2405; J2920; J7030; J7040; Q9967